=== PATIENT | male | born 1960 ===

== ENCOUNTER 2019-03-01 11:27 | Emergency (ER) | payer BC ==
[2019-03-01] MEDS ORDERED: Albuterol 6.7 GM Inhaler INH ONE (12:18)
--- NOTE | 2019-03-01 12:27 | EDM.PDOC ---
ED HPI GENERAL MEDICAL PROBLEM - General Chief Complaint: Respiratory Problem Stated Complaint: SHORTNESS OF BREATH Time Seen by Provider: 03/01/19 11:46 Source of Information: Reports: Patient History Limitations: Reports: No Limitations - History of Present Illness INITIAL COMMENTS - FREE TEXT/NARRATIVE: Patient is a 58-year-old male who presents ED with a history of shortness of breath for almost 3 years. States he was evaluated by occupational med doctor and had complained of some shortness of breath. PFTs were obtained 01/17/19 indicating moderate restriction ventilatory effort and also superimposed early obstructive pulmonary impairment. FVC of 51%. FEV1 43%. FEV1/FVC of 84%. States he is short of breath with exertion. He is able to walk half-mile before he gets short of breath. In addition he is able to walk up 3 flights of stairs before he gets short of breath. There is no chest pain associated with this. He has no cough noted. No history of any fevers. No orthopnea/PND, increased weight , or increased edema to his lower extremities. He is a borderline diabetic with a history of hypertension. He was on lisinopril/ATC Z 10 mg/12.5 mg but stopped taking approximately 2 months ago since he ran out of a prescription. He does not have a history of COPD, emphysema, or asthma. He has no smoking history as well. There is no history of coronary artery disease and/or hypercholesteremia. Patient denies any recent sick exposures. Denies any chemical exposures. 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 He was informed he should be on a inhaler. - Related Data Allergies Allergy/AdvReac Type Severity Reaction Status Date / Time No Known Allergies Allergy Verified 03/01/19 11:44 Home Meds: Home Meds hydroCHLOROthiazide [Hydrochlorothiazide] 25 mg PO QAM #30 tablet 03/01/19 [Rx] Past Medical History Other HEENT History: ear surgery as a child Cardiovascular History: Reports: Hypertension Social & Family History - Tobacco Use Smoking Status *Q: Never Smoker - Caffeine Use Caffeine Use: Reports: Coffee, Soda, Tea - Recreational Drug Use Recreational Drug Use: No ED ROS GENERAL - Review of Systems Review Of Systems: ROS reveals no pertinent complaints other than HPI. ED EXAM, GENERAL - Physical Exam Exam: See Below Exam Limited By: No Limitations General Appearance: Alert, WD/WN, No Apparent Distress, Other (Able to speak in full sentences with no shortness of breath. ) Eye Exam: Bilateral Eye: Normal Inspection Ears: Hearing Grossly Normal, Hearing Loss (hearing aid to right ear present. ) Nose: Normal Inspection, Normal Mucosa, No Blood Throat/Mouth: Normal Inspection, Normal Oropharynx, Normal Voice, No Airway Compromise Head: Atraumatic, Normocephalic Neck: Normal Inspection, Supple Respiratory/Chest: No Respiratory Distress, Lungs Clear, Normal Breath Sounds, No Accessory Muscle Use, Chest Non-Tender Cardiovascular: Normal Peripheral Pulses, Regular Rate, Rhythm, No Murmur ( obvious) Peripheral Pulses: 2+: Radial (L), Radial (R), Posterior Tibial (L), Posterior Tibial (R) GI/Abdominal: Normal Bowel Sounds, Soft, Non-Tender, No Organomegaly, Distended (obese, no fluid wave) Extremities: Normal Inspection, Pedal Edema (trace edema bilaterally) Neurological: Alert, Oriented, CN II-XII Intact, Normal Cognition, No Motor/ Sensory Deficits Psychiatric: Normal Affect, Normal Mood Skin Exam: Warm, Dry, Intact, Normal Color Course - Vital Signs Last Recorded V/S: Last Vital Signs Temp 98.5 F 03/01/19 11:38 Pulse 84 03/01/19 11:38 Resp 11 L 03/01/19 11:38 BP 164/97 H 03/01/19 11:38 Pulse Ox 95 03/01/19 11:38 - Orders/Labs/Meds Orders: Active Orders 24 hr Category Date Time Status EKG Documentation Completion [RC] STAT Care 03/01/19 12:12 Active RT Post Treatment Assessment [RC] Click to Edit Care 03/01/19 12:18 Active RT Pre-Treatment Assessment [RC] Click to Edit Care 03/01/19 12:18 Active RT Spirometry with Bronchodilator [RESPCARE] Stat Oth 03/01/19 12:11 Active Labs: Laboratory Tests 03/01/19 03/01/19 Range/Units 12:36 12:36 WBC 6.39 (4.23-9.07) K/mm3 RBC 5.78 (4.63-6.08) M/mm3 Hgb 16.0 (13.7-17.5) gm/L Hct 50.4 (40.1-51.0) % MCV 87.2 (79.0-92.2) fl MCH 27.7 (25.7-32.2) pg MCHC 31.7 L (32.2-35.5) g/dl RDW Std Deviation 46.5 H (35.1-43.9) fL Plt Count 247 (163-337) K/mm3 MPV 10.1 (9.4-12.3) fl Neut % (Auto) 57.4 (34.0-67.9) % Lymph % (Auto) 26.3 (21.8-53.1) % [place] % (Auto) 13.0 H (5.3-12.2) % Eos % (Auto) 2.8 (0.8-7.0) Baso % (Auto) 0.3 (0.1-1.2) % Neut # (Auto) 3.67 (1.78-5.38) K/mm3 Lymph # (Auto) 1.68 (1.32-3.57) K/mm3 [place] # (Auto) 0.83 H (0.30-0.82) K/mm3 Eos # (Auto) 0.18 (0.04-0.54) K/mm3 Baso # (Auto) 0.02 (0.01-0.08) K/mm3 Sodium 144 (136-145) mEq/L Potassium 5.5 H (3.5-5.1) mEq/L Chloride 105 (98-107) mEq/L Carbon Dioxide 36 H (21-32) mEq/L Anion Gap 8.5 (5-15) BUN 23 H (7-18) mg/dL Creatinine 1.0 (0.7-1.3) mg/dL Est Cr Clr Drug Dosing 73.44 mL/min Estimated GFR (MDRD) > 60 (>60) mL/min BUN/Creatinine Ratio 23.0 H (14-18) Glucose 98 (74-106) mg/dL Calcium 9.4 (8.5-10.1) mg/dL Total Bilirubin 0.3 (0.2-1.0) mg/dL AST 25 (15-37) U/L ALT 32 (16-63) U/L Alkaline Phosphatase 122 H (46-116) U/L Troponin I 0.020 (0.00-0.056) ng/mL Total Protein 7.7 (6.4-8.2) g/dl Albumin 3.7 (3.4-5.0) g/dl Globulin 4.0 gm/dL Albumin/Globulin Ratio 0.9 L (1-2) Meds: Medications Discontinued Medications Generic Name Dose Route Start Last Admin Trade Name Brian PRN Reason Stop Dose Admin Albuterol 8.5 gm 03/01/19 12:18 03/01/19 12:43 Proventil Hfa INH 03/01/19 12:19 2 puff ONETIME ONE Administration Hydrochlorothiazide 25 mg 03/01/19 13:27 03/01/19 13:40 Hydrochlorothiazide PO 03/01/19 13:28 25 mg ONETIME ONE Administration - Re-Assessments/Exams Free Text/Narrative Re-Assessment/Exam: Patient was evaluated at occupational [facility] one month ago with PFTs indicating FVC of 51%, [id number]%, FEV1/FVC of 84%. Patient has moderate restriction ventilatory effect. Superimposed early obstructive pulmonary impairment. Patient has not made a appointment with a primary care provider as of yet. He has attempted to make an appointment today with no luck. Thus he came to the ED for further evaluation since he has limited days off. I will order a peak flow pre/post bronchodilator to see if this improves his symptoms. Unclear what is causing this restrictive pattern since the patient does not have a history of smoking. I will also obtain a chest x-ray, EKG, and basic labs. 03/01/19 12:[address] Patterson. cardiomegaly with mild increased pulmonary congestion noted. Final interpretation is pending. EKG: SR, DE 152, QTc 445, HR 75, No acute ST changes noted. 03/01/19 13:03 per respiratory therapist patient's pre-peak flow was 235. Post peak flow was 260. Patient admitted to having feeling some improvement with taking a deep breath on the bronchodilator. Return precautions were discussed with the patient. He had no further questions or concerns. Discharge instructions as documented. Departure - Departure Time of Disposition: 12:29 Disposition: Home, Self-Care 01 Condition: Good Clinical Impression: Exertional shortness of breath, Hyperkalemia - Discharge Information Prescriptions: hydroCHLOROthiazide [Hydrochlorothiazide] 25 mg PO QAM #30 tablet Instructions: Shortness of Breath, Adult, [id number], Hyperkalemia Referrals: Megan Navarro PA-C [Physician Fire Sprinkler Inspector] - 03/05/19 10:20 am [facility] [Outside] (Call to make an appt with pulmonologists. ) Forms: ED Department Discharge Additional Instructions: Utilize the albuterol inhaler 1-2 puffs every 4 hours as needed for shortness of breath and cough. Keep track of your peak flows as instructed by respiratory therapy. In addition blood work indicated your potassium was elevated at 5.5. You were on at one point a medication called lisinopril that will cause increase to your potassium levels. The other medication was called hydrochlorothiazide which will decrease your potassium levels. I have opted to stop the lisinopril and increase hydrochlorothiazide to 25 mg every day. Repeat chem 8 will be obtained prior to your appointment with Megan Navarro for March 05 at 1020. Go to the lab at 10:00 AM to have your blood work obtained. You will need to schedule a appointment with a media center specialist in [place]. Please call heart and Lung Clinic at [facility] in [place] to arrange an appt. Please return to the ED at any time you develop any new or worsening symptoms. - My Orders Last 24 Hours: My Active Orders 03/01/19 12:11 RT Spirometry with Bronchodilator [RESPCARE] Stat 03/01/19 12:12 EKG Documentation Completion [RC] STAT 03/01/19 12:18 RT Post Treatment Assessment [RC] Click to Edit RT Pre-Treatment Assessment [RC] Click to Edit - Assessment/Plan Last 24 Hours: My Active Orders 03/01/19 12:11 RT Spirometry with Bronchodilator [RESPCARE] Stat 03/01/19 12:12 EKG Documentation Completion [RC] STAT 03/01/19 12:18 RT Post Treatment Assessment [RC] Click to Edit RT Pre-Treatment Assessment [RC] Click to Edit
--- NOTE | 2019-03-01 12:44 | CR ---
Chest: Portable view of the chest was obtained. Comparison: No previous study. Heart size at the upper limits of normal. Mediastinum is normal. Lungs are clear. Bony structures are grossly intact. Impression: 1. Heart size at the upper limits of normal. Nothing acute is appreciated on portable chest x-ray. Diagnostic code #2
[2019-03-01] MEDS ORDERED: Hydrochlorothiazide 25 MG Tab PO ONE (13:27)
== END 2019-03-01 13:58 | disposition home or self-care (01) ==
LOC: JD.ED 11:27
DX: E87.5 Hyperkalemia (principal); I10 Essential (primary) hypertension
CPT/HCPCS: 36415; 71045; 80053; 84484; 85025; 93005; 99285; A9270; 93010; 99283

== ENCOUNTER 2019-11-11 22:37 | Inpatient (IN) | payer BC, OTHER ==
--- NOTE | 2019-11-11 23:33 | EDM.PDOC ---
ED HPI GENERAL MEDICAL PROBLEM - General Chief Complaint: Respiratory Problem Stated Complaint: POSS STROKE Time Seen by Provider: 11/11/19 23:04 Source of Information: Reports: Patient History Limitations: Reports: No Limitations - History of Present Illness INITIAL COMMENTS - FREE TEXT/NARRATIVE: Mr. Tariq is a very pleasant 59-year-old man with a past medical history significant for untreated hypertension, prediabetes, and morbid obesity, who now presents to the ED stating that he has had progressively worsening dyspnea on exertion over the past 2 weeks. He denies dyspnea at rest or orthopnea. He has had a cough productive of an unknown colored sputum for the past 2 days, along with a sensation of chest congestion. He became lightheaded midday today. No recent fever, chills, chest pain, palpitations, nausea, vomiting, constipation, diarrhea, or urinary symptoms, although he states that his urine was dark today. No recent abdominal pain, bloody bowel movements, black bowel movements, recent weight gain or weight loss, joint aches, headaches, or rashes. The patient's PCP is LISA Gutierres. He last saw her about 2 months ago, and does not have a follow-up appointment. He did not receive an influenza vaccine this season, and declined an offer to receive one here today. - Related Data Allergies Allergy/AdvReac Type Severity Reaction Status Date / Time No Known Allergies Allergy Verified 11/11/19 22:53 Home Meds: Home Meds Budesonide/Formoterol Fumarate [Symbicort 160-4.5 Mcg Inhaler] 6 gm PO BID 11/11 [History] Past Medical History Cardiovascular History: Reports: Hypertension (untreated) Endocrine/Metabolic History: Reports: Obesity/BMI 30+, Other (See Below) ( Prediabetes) - Infectious Disease History Infectious Disease History: Reports: Chicken Pox, Measles, Mumps - Past Surgical History HEENT Surgical History: Reports: Oral Surgery (Cleft palate repair as a child), Other (See Below) (Right mastoid process surgery as a child) Social & Family History - Tobacco Use Smoking Status *Q: Never Smoker - Caffeine Use Caffeine Use: Reports: None - Alcohol Use Alcohol Use History: Yes Alcohol Use Frequency: Socially - Recreational Drug Use Recreational Drug Use: Yes Drug Use in Last 12 Months: No Recreational Drug Type: Reports: Marijuana/Hashish (last smoked early ) - Living Situation & Occupation Living situation: Reports: , Alone 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 ED EXAM, GENERAL - Physical Exam Exam: See Below Exam Limited By: No Limitations General Appearance: Alert, WD/WN, No Apparent Distress Eye Exam: Bilateral Eye: EOMI, Normal Inspection Ears: Normal External Exam, Hearing Grossly Normal Nose: Normal Inspection Throat/Mouth: Normal Inspection, No Airway Compromise, Other (Repaired cleft lip ) Head: Atraumatic, Normocephalic Neck: Normal Inspection, Full Range of Motion Respiratory/Chest: No Respiratory Distress, No Accessory Muscle Use, Decreased Breath Sounds (throughout). No: Crackles, Rhonchi, Wheezing, Stridor, Prolonged Expiration Cardiovascular: Normal Peripheral Pulses, Regular Rate, Rhythm, No Gallop, No JVD, No Murmur, No Rub Peripheral Pulses: 4+: Radial (L), Radial (R) GI/Abdominal: Normal Bowel Sounds, Soft, Non-Tender, No Organomegaly, No Distention, No Abnormal Bruit, No Mass (Male) Exam: Deferred Rectal (Males) Exam: Deferred Back Exam: Normal Inspection, Full Range of Motion, NT Extremities: Normal Range of Motion, Normal Capillary Refill, Other (3+ pitting pretibial edema bilaterally) Neurological: Alert, Oriented, Normal Cognition, No Motor/Sensory Deficits Psychiatric: Normal Affect Skin Exam: Warm, Dry, Intact, Normal Color, No Rash EKG INTERPRETATION EKG Date: 11/11/19 Time: 23:59 Rhythm: NSR Rate (Beats/Min): 94 [place]: RAD-Right [place] Deviation (2 LPFB) P-Wave: Enlarged (? LAE) QRS: Normal (Late transition) ST-T: Normal QT: Normal Comparison: Change From Previous EKG (LPFB new since 03/01/2019) Course - Vital Signs Last Recorded V/S: Last Vital Signs Temp 37.2 C 11/11/19 22:44 Pulse 96 11/12/19 01:41 Resp 16 11/11/19 22:44 BP 168/118 H 11/11/19 22:44 Pulse Ox 93 L 11/12/19 01:41 - Orders/Labs/Meds Orders: Active Orders 24 hr Category Date Time Status EKG Documentation Completion [RC] STAT Care 11/11/19 23:23 Active Ang Chest [CT] Stat Exams 11/12/19 01:00 Taken Chest 2V [CR] Stat Exams 11/11/19 23:23 Taken CULTURE BLOOD [BC] Stat Lab 11/11/19 23:40 Received CULTURE BLOOD [BC] Stat Lab 11/11/19 23:56 Received Blood Culture x2 Reflex Set [OM.PC] Stat Oth 11/11/19 23:23 Ordered Labs: Laboratory Tests 11/11/19 11/11/19 11/11/19 Range/Units 23:40 23:40 23:40 WBC 8.02 (4.23-9.07) K/mm3 RBC 6.22 H (4.63-6.08) M/mm3 Hgb 16.0 (13.7-17.5) gm/dl Hct 54.6 H (40.1-51.0) % MCV 87.8 (79.0-92.2) fl MCH 25.7 (25.7-32.2) pg MCHC 29.3 L (32.2-35.5) g/dl RDW Std Deviation 52.7 H (35.1-43.9) fL Plt Count 224 (163-337) K/mm3 MPV 10.7 (9.4-12.3) fl Neutrophils % (Manual) 62 H (40-60) % Band Neutrophils % 0 (0-10) % Lymphocytes % (Manual) 24 (20-40) % Atypical Lymphs % 0 % Monocytes % (Manual) 12 H (2-10) % Eosinophils % (Manual) 2 (0.8-7.0) % Basophils % (Manual) 0 L (0.2-1.2) Platelet Estimate Adequate Polychromasia 1+ slight Hypochromasia 1+ slight Anisocytosis 1+ slight RBC Morph Comment Not Reportable D-Dimer, Quantitative 6.42 H (0.19-0.50) mg/L Puncture Site ABG pH (7.35-7.45) ABG pCO2 (35.0-45.0) mmHg ABG pO2 (80.0-100.0) mmHg ABG HCO3 (22.0-26.0) meq/L ABG O2 Saturation (96.0-97.0) % ABG Base Excess (-2-2.0) A-a Gradient mmHg O2 Delivery Device Oxygen Flow Rate FiO2 (21.00-100.00) % Sodium 146 H (136-145) mEq/L Potassium 4.2 (3.5-5.1) mEq/L Chloride 106 (98-107) mEq/L Carbon Dioxide 35 H (21-32) mEq/L Anion Gap 9.2 (5-15) BUN 18 (7-18) mg/dL Creatinine 1.2 (0.7-1.3) mg/dL Est Cr Clr Drug Dosing 58.34 mL/min Estimated GFR (MDRD) > 60 (>60) mL/min BUN/Creatinine Ratio 15.0 (14-18) Glucose 103 (80-115) mg/dL Lactic Acid (0.4-2.0) mmol/L Calcium 8.6 (8.5-10.1) mg/dL Total Bilirubin 0.6 (0.2-1.0) mg/dL AST 28 (15-37) U/L ALT 43 (16-63) U/L Alkaline Phosphatase 98 (46-116) U/L Troponin I 0.042 (0.00-0.056) ng/mL NT-Pro-B Natriuret Pep (0-125) pg/mL Total Protein 7.3 (6.4-8.2) g/dl Albumin 3.1 L (3.4-5.0) g/dl Globulin 4.2 gm/dL Albumin/Globulin Ratio 0.7 L (1-2) 11/11/19 11/11/19 11/11/19 Range/Units 23:40 23:40 23:43 WBC (4.23-9.07) K/mm3 RBC (4.63-6.08) M/mm3 Hgb (13.7-17.5) gm/dl Hct (40.1-51.0) % MCV (79.0-92.2) fl MCH (25.7-32.2) pg MCHC (32.2-35.5) g/dl RDW Std Deviation (35.1-43.9) fL Plt Count (163-337) K/mm3 MPV (9.4-12.3) fl Neutrophils % (Manual) (40-60) % Band Neutrophils % (0-10) % Lymphocytes % (Manual) (20-40) % Atypical Lymphs % % Monocytes % (Manual) (2-10) % Eosinophils % (Manual) (0.8-7.0) % Basophils % (Manual) (0.2-1.2) Platelet Estimate Polychromasia Hypochromasia Anisocytosis RBC Morph Comment D-Dimer, Quantitative (0.19-0.50) mg/L Puncture Site Rt radial ABG pH 7.28 L (7.35-7.45) ABG pCO2 76.5 H* (35.0-45.0) mmHg ABG pO2 114.0 H (80.0-100.0) mmHg ABG HCO3 35.1 H (22.0-26.0) meq/L ABG O2 Saturation 97.7 H (96.0-97.0) % ABG Base Excess 5.4 H (-2-2.0) A-a Gradient 19 mmHg O2 Delivery Device Nasal cannula Oxygen Flow Rate 3.0 FiO2 32.00 (21.00-100.00) % Sodium (136-145) mEq/L Potassium (3.5-5.1) mEq/L Chloride (98-107) mEq/L Carbon Dioxide (21-32) mEq/L Anion Gap (5-15) BUN (7-18) mg/dL Creatinine (0.7-1.3) mg/dL Est Cr Clr Drug Dosing mL/min Estimated GFR (MDRD) (>60) mL/min BUN/Creatinine Ratio (14-18) Glucose (80-115) mg/dL Lactic Acid 0.8 (0.4-2.0) mmol/L Calcium (8.5-10.1) mg/dL Total Bilirubin (0.2-1.0) mg/dL AST (15-37) U/L ALT (16-63) U/L Alkaline Phosphatase (46-116) U/L Troponin I (0.00-0.056) ng/mL NT-Pro-B Natriuret Pep 3380 H (0-125) pg/mL Total Protein (6.4-8.2) g/dl Albumin (3.4-5.0) g/dl Globulin gm/dL Albumin/Globulin Ratio (1-2) Meds: Medications Discontinued Medications Generic Name Dose Route Start Last Admin Trade Name Freq PRN Reason Stop Dose Admin Furosemide 40 mg 11/12/19 02:48 Lasix IVPUSH 11/12/19 02:49 NOW ONE - Re-Assessments/Exams Free Text/Narrative Re-Assessment/Exam: 11/11/19 23:25 As above, the patient reports a cough and progressively worsening dyspnea on exertion for the past 2 weeks, with lightheadedness today. No recent fever. He is found to be hypoxemic on room air, although he is not orthopneic. He has distant breath sounds on auscultation. I have ordered a workup that includes blood work, an ABG, 2 sets of blood cultures, a chest x-ray, and an ECG. 11/11/19 23:59 The patient's ABG represents a chronic/compensated respiratory acidosis with excess oxygen. The patient is currently on 3 L of oxygen per nasal cannula. I have asked Hina BALDERRAMA to turn the patient's oxygen down to a saturation of closer to 90%. 11/12/19 00:52 2-view chest radiograph reviewed. There is cardiomegaly. Mild pulmonary vascular congestion. No pleural effusions seen, but fluid is seen in the fissures. No focal infiltrate. No pneumothorax. Formal read per the Radiologist pending. 11/12/19 01:01 The patient's CBC is remarkable for a Hct elevated at 54.6, with a Hgb normal at 16.0. The remainder of his CBC is unremarkable. His CMP is remarkable for a sodium slightly elevated at 146, and a bicarbonate elevated at 35, with the remainder of his CMP being unremarkable. His lactic acid level is within normal limits at 0.8. His troponin is within normal limits at 0.042. His D-dimer is substantially elevated at 6.42. His BNP is elevated at 3380. Based on the patients elevated D-dimer, I have ordered a CT angiogram of the chest to evaluate for PE. Because he appears to be fluid overloaded, I have not ordered additional IV fluid. 11/12/19 02:30 CT angiogram of the chest is read by vRaric as: 1. No central or proximal segmental pulmonary embolus. Please see comment above. (the body of the report reads "The heterogeneous appearance of multiple segmental/subsegmental pulmonary arteries/branches may be due to motion and/or streak artifact. One or more segmental/subsegmental pulmonary emboli cannot be excluded.) 2. Small RIGHT pleural effusion. 3. Possible mild pulmonary edema. 4. 4.3 cm ectasia of the descending thoracic aorta.. 5. Pulmonary arterial hypertension. 6. Cholelithiasis. While not do to a pulmonary embolus, the patient's workup indicates that his dyspnea on exertion is due to pulmonary hypertension and left-sided heart failure, and his hypoxemia is likely due to left-sided CHF. Note that the patient may also have or be developing right-sided heart failure secondary to his pulmonary hypertension. Going forward, the patient would benefit from an echocardiogram +/-right heart catheterization. At a minimum, the patient requires supplemental oxygen. While not diagnostic for COPD, there was no evidence of COPD on the patient's CT scan. This indicates that his respiratory acidosis is NOT oxygen related. Pulmonary hypertension is improved in the setting of higher oxygen tension, therefore I will have the patient's nurse increase his supplemental oxygen. The patient's elevated D-dimer is not due to a pulmonary embolus - the elevation may be due to CHF or an undiagnosed cancer or liver disease, however, it could also be due to a DVT in one or both of his lower extremities. Bilateral lower extremity Doppler ultrasounds are therefore indicated. I am recommending that we place the patient into observation. He could undergo the bilateral lower extremity Dopplers and an echocardiogram in the morning, and have home supplemental oxygen arranged for. In the meantime, since the patient does have some evidence of CHF, including an elevated BNP, mild pulmonary edema and a small pleural effusion, the patient could be diuresed during his stay. 11/12/19 02:47 The above plan was discussed with the patient, who agreed. I have ordered Lasix 40 mg IVP. Departure - Departure Time of Disposition: 02:47 Disposition: Refer to Observation Condition: Good Clinical Impression: Pulmonary hypertension, Hypoxemia, CHF (congestive heart failure), Elevated d- dimer - Discharge Information *PRESCRIPTION DRUG MONITORING PROGRAM REVIEWED*: Not Applicable *COPY OF PRESCRIPTION DRUG MONITORING REPORT IN PATIENT OG: Not Applicable Referrals: Megan Navarro PA-C [Primary Care Provider] - Forms: ED Department Discharge Sepsis Event Note - Evaluation Sepsis Screening Result: No Definite Risk - Focused Exam Vital Signs: Vital Signs Temp Pulse Resp BP Pulse Ox 11/12/19 01:41 96 93 L 11/11/19 23:05 95 11/11/19 22:44 37.2 C 95 16 168/118 H 82 L Date Exam was Performed: 11/12/19 Time Exam was Performed: 03:18 - My Orders Last 24 Hours: My Active Orders 11/11/19 23:23 EKG Documentation Completion [RC] STAT Chest 2V [CR] Stat Blood Culture x2 Reflex Set [OM.PC] Stat 11/11/19 23:40 CULTURE BLOOD [BC] Stat 11/11/19 23:56 CULTURE BLOOD [BC] Stat 11/12/19 01:00 Ang Chest [CT] Stat - Assessment/Plan Last 24 Hours: My Active Orders 11/11/19 23:23 EKG Documentation Completion [RC] STAT Chest 2V [CR] Stat Blood Culture x2 Reflex Set [OM.PC] Stat 11/11/19 23:40 CULTURE BLOOD [BC] Stat 11/11/19 23:56 CULTURE BLOOD [BC] Stat 11/12/19 01:00 Ang Chest [CT] Stat
[2019-11-12] MEDS ORDERED: Succinylcholine 200 MG/10 ML MDV ONE
[2019-11-12] MEDS ORDERED: Midazolam 1 MG/ML 5 ML SDV ONE
[2019-11-12] MEDS ORDERED: Furosemide 40 MG/4 ML VIAL IVPUSH ONE ×3 (02:48→18:00)
--- NOTE | 2019-11-12 08:02 | CR ---
Chest: Two views of the chest were obtained. Comparison: Prior chest x-ray of 03/01/19. Heart is enlarged. Mild areas of atelectasis are noted within both lung bases. Pulmonary vessels are felt to be slightly congested. Bony structures appear within normal limits for the patient's age. Impression: 1. Findings suspicious for mild CHF. 2. Minimal atelectasis. Diagnostic code #3 This report was dictated in [place] Standard Time
--- NOTE | 2019-11-12 08:02 | CT ---
CT chest Technique: Multiple axial sections through the chest were obtained. Intravenous contrast was utilized. Study has been performed as a pulmonary angiogram protocol. Comparison: Visualized upper abdominal structures show evidence of a minimal amount of fluid around the spleen. Three large calcified gallstones are seen within the gallbladder. Body wall edema is identified within the abdomen. Small right-sided pleural effusion is noted. Heart is enlarged. Pulmonary arteries show no filling defects to indicate pulmonary embolism. Ascending aorta is mildly aneurysmal with AP dimension of 4.3 cm. Mediastinum and hilar region show no adenopathy. Mild areas of atelectasis are noted within both lung bases. Impression: 1. Cardiomegaly and small right-sided pleural effusion. These correlate if patient has mild CHF. 2. Mild areas of atelectasis within both lung bases. 3. Gallstones and a small amount of ascites around the spleen. Body wall edema also noted. 4. No findings of pulmonary embolism. 5. Other findings as noted above. Diagnostic code #3 This report was dictated in [place] Standard Time I agree with preliminary report from [facility], finalized on 11/12/19, 3:27 AM Central Time
--- NOTE | 2019-11-12 08:55 | US ---
Bilateral lower extremity deep venous ultrasound: Duplex and color Doppler evaluation was obtained of the right and left common femoral, proximal greater saphenous, superficial femoral, popliteal and posterior tibial veins. Findings: Normal phasic flow, augmentation and compression are seen. Impression: 1. No evidence of deep venous thrombosis within the right or left lower extremities. Diagnostic code #1 Study was dictated in [place] Standard Time
[2019-11-12] MEDS ORDERED: Acetaminophen 325 MG Tab PO PRN (09:16)
--- NOTE | 2019-11-12 09:22 | PCM.HP.2 ---
H&P History of Present Illness - General Date of Service: 11/12/19 Admit Problem/Dx: Admission Diagnosis/Problem Admission Diagnosis/Problem Pulmonary hypertension - History of Present Illness Initial Comments - Free Text/Narative: Prateek is a 59-year-old male who is a poor historian and difficult to understand secondary to speech impediment presented to the emergency room with worsening shortness of breath. He has a history for untreated hypertension, prediabetes, and morbid obesity. He states for the last few months he has had worsening dyspnea on exertion that significantly worsened over the last few days. Yesterday he became lightheaded and decided to come to the emergency room. He denies any fever, chills, night sweats. He has had a cough that is productive of unknown colored sputum for the last couple of days. No abdominal pain, hematochezia or melena, dysuria or hesitancy. Patient did have PFTs done March 2019 which showed moderate obstructive ventilatory defect. There was no significant improvement in FVC and FEV1 postbronchodilator. Flow volume loop suggests obstructive ventilatory defect. Lung volumes are normal. The diffusion capacity is normal. Patient states he smoked approximately 1-1/2 years back in the 80s. - Related Data Allergies/Adverse Reactions: Allergies Allergy/AdvReac Type Severity Reaction Status Date / Time No Known Allergies Allergy Verified 11/12/19 07:44 Home Medications: Home Meds Budesonide/Formoterol Fumarate [Symbicort 160-4.5 Mcg Inhaler] 6 gm PO BID 11/11 [History] Past Medical History HEENT History: Reports: Other (See Below) Other HEENT History: wears glasses for driving he states. Wears hearing aide in right ear. Cardiovascular History: Reports: Hypertension, Other (See Below) Other Cardiovascular History: enlarged heart. Respiratory History: Reports: Other (See Below) Other Respiratory History: He takes an inhaler but is unsure of specific lung problem. States he recently got the inhaler from Megan Navarro. Gastrointestinal History: Reports: GERD Neurological History: Reports: Concussion, Speech Problems, Other (See Below) Other Neuro History: concussion one year ago after slipping on ice and hitting head on concrete. Hx of cleft lip and palate, it is difficult to understand pt' s speech. Endocrine/Metabolic History: Reports: Obesity/BMI 30+, Other (See Below) - Infectious Disease History Infectious Disease History: Reports: Chicken Pox, Measles, Mumps - Past Surgical History HEENT Surgical History: Reports: Oral Surgery, Other (See Below) Other HEENT Surgeries/Procedures: Surgery for cleft lip/palate. Surgery to right ear can't remember what it was called. Cardiovascular Surgical History: Reports: None Respiratory Surgical History: Reports: None GI Surgical History: Reports: None Endocrine Surgical History: Reports: None Neurological Surgical History: Reports: None Social & Family History - Family History Family Medical History: Noncontributory - Tobacco Use Smoking Status *Q: Never Smoker Second Hand Smoke Exposure: No - Caffeine Use Caffeine Use: Reports: Soda - Recreational Drug Use Recreational Drug Use: No Drug Use in Last 12 Months: No Recreational Drug Type: Reports: Marijuana/Hashish (last smoked early ) - Living Situation & Occupation Living situation: Reports: , Alone 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 Exam - Exam Exam: See Below - Vital Signs Vital Signs: Last Vital Signs Temp 98.4 F 11/12/19 05:37 Pulse 90 11/12/19 05:37 Resp 24 H 11/12/19 05:37 BP 143/93 H 11/12/19 05:38 Pulse Ox 96 11/12/19 06:01 Weight: 273 lb 3.2 oz - Exam Quality Assessment: Supplemental Oxygen General: Alert, Oriented, 4 HEENT: Conjunctiva Clear, EOMI, Mucosa Moist & [place], Pupils Reactive, Other ( Cleft lip) Neck: Supple, Trachea Midline, 2 Lungs: Decreased Breath Sounds (Diffusely), Crackles (Scattered). No: Normal Respiratory Effort (Increased rate and effort) Cardiovascular: Regular Rate, Regular Rhythm GI/Abdominal Exam: Normal Bowel Sounds, Soft, Non-Tender, No Distention Back Exam: Normal Inspection Extremities: Normal Range of Motion, Normal Capillary Refill, Pedal Edema (2+ pitting edema knee-high) Peripheral Pulses: 2+: Posterior Tibial (L), Posterior Tibial (R), Dorsalis Pedis (L), Dorsalis Pedis (R) Skin: Warm, Dry, Intact Neurological: Cranial Nerves Intact Neuro Extensive - Mental Status: Alert, Oriented x3, Normal Mood/Affect, Normal Cognition Psychiatric: Alert, Normal Affect, Normal Mood - Patient Data Lab Results Last 24 hrs: Laboratory Results - last 24 hr 11/11/19 11/11/19 11/11/19 Range/Units 23:40 23:40 23:40 WBC 8.02 (4.23-9.07) K/mm3 RBC 6.22 H (4.63-6.08) M/mm3 Hgb 16.0 (13.7-17.5) gm/dl Hct 54.6 H (40.1-51.0) % MCV 87.8 (79.0-92.2) fl MCH 25.7 (25.7-32.2) pg MCHC 29.3 L (32.2-35.5) g/dl RDW Std Deviation 52.7 H (35.1-43.9) fL Plt Count 224 (163-337) K/mm3 MPV 10.7 (9.4-12.3) fl Neutrophils % (Manual) 62 H (40-60) % Band Neutrophils % 0 (0-10) % Lymphocytes % (Manual) 24 (20-40) % Atypical Lymphs % 0 % Monocytes % (Manual) 12 H (2-10) % Eosinophils % (Manual) 2 (0.8-7.0) % Basophils % (Manual) 0 L (0.2-1.2) Platelet Estimate Adequate Polychromasia 1+ slight Hypochromasia 1+ slight Anisocytosis 1+ slight RBC Morph Comment Not Reportable D-Dimer, Quantitative 6.42 H (0.19-0.50) mg/L Puncture Site ABG pH (7.35-7.45) ABG pCO2 (35.0-45.0) mmHg ABG pO2 (80.0-100.0) mmHg ABG HCO3 (22.0-26.0) meq/L ABG O2 Saturation (96.0-97.0) % ABG Base Excess (-2-2.0) A-a Gradient mmHg O2 Delivery Device Oxygen Flow Rate FiO2 (21.00-100.00) % Sodium 146 H (136-145) mEq/L Potassium 4.2 (3.5-5.1) mEq/L Chloride 106 (98-107) mEq/L Carbon Dioxide 35 H (21-32) mEq/L Anion Gap 9.2 (5-15) BUN 18 (7-18) mg/dL Creatinine 1.2 (0.7-1.3) mg/dL Est Cr Clr Drug Dosing 58.34 mL/min Estimated GFR (MDRD) > 60 (>60) mL/min BUN/Creatinine Ratio 15.0 (14-18) Glucose 103 (80-115) mg/dL Lactic Acid (0.4-2.0) mmol/L Calcium 8.6 (8.5-10.1) mg/dL Total Bilirubin 0.6 (0.2-1.0) mg/dL AST 28 (15-37) U/L ALT 43 (16-63) U/L Alkaline Phosphatase 98 (46-116) U/L Troponin I 0.042 (0.00-0.056) ng/mL NT-Pro-B Natriuret Pep (0-125) pg/mL Total Protein 7.3 (6.4-8.2) g/dl Albumin 3.1 L (3.4-5.0) g/dl Globulin 4.2 gm/dL Albumin/Globulin Ratio 0.7 L (1-2) 11/11/19 11/11/19 11/11/19 Range/Units 23:40 23:40 23:43 WBC (4.23-9.07) K/mm3 RBC (4.63-6.08) M/mm3 Hgb (13.7-17.5) gm/dl Hct (40.1-51.0) % MCV (79.0-92.2) fl MCH (25.7-32.2) pg MCHC (32.2-35.5) g/dl RDW Std Deviation (35.1-43.9) fL Plt Count (163-337) K/mm3 MPV (9.4-12.3) fl Neutrophils % (Manual) (40-60) % Band Neutrophils % (0-10) % Lymphocytes % (Manual) (20-40) % Atypical Lymphs % % Monocytes % (Manual) (2-10) % Eosinophils % (Manual) (0.8-7.0) % Basophils % (Manual) (0.2-1.2) Platelet Estimate Polychromasia Hypochromasia Anisocytosis RBC Morph Comment D-Dimer, Quantitative (0.19-0.50) mg/L Puncture Site Rt radial ABG pH 7.28 L (7.35-7.45) ABG pCO2 76.5 H* (35.0-45.0) mmHg ABG pO2 114.0 H (80.0-100.0) mmHg ABG HCO3 35.1 H (22.0-26.0) meq/L ABG O2 Saturation 97.7 H (96.0-97.0) % ABG Base Excess 5.4 H (-2-2.0) A-a Gradient 19 mmHg O2 Delivery Device Nasal cannula Oxygen Flow Rate 3.0 FiO2 32.00 (21.00-100.00) % Sodium (136-145) mEq/L Potassium (3.5-5.1) mEq/L Chloride (98-107) mEq/L Carbon Dioxide (21-32) mEq/L Anion Gap (5-15) BUN (7-18) mg/dL Creatinine (0.7-1.3) mg/dL Est Cr Clr Drug Dosing mL/min Estimated GFR (MDRD) (>60) mL/min BUN/Creatinine Ratio (14-18) Glucose (80-115) mg/dL Lactic Acid 0.8 (0.4-2.0) mmol/L Calcium (8.5-10.1) mg/dL Total Bilirubin (0.2-1.0) mg/dL AST (15-37) U/L ALT (16-63) U/L Alkaline Phosphatase (46-116) U/L Troponin I (0.00-0.056) ng/mL NT-Pro-B Natriuret Pep 3380 H (0-125) pg/mL Total Protein (6.4-8.2) g/dl Albumin (3.4-5.0) g/dl Globulin gm/dL Albumin/Globulin Ratio (1-2) Result Diagrams: 11/11/19 23:40 11/11/19 23:40 Imaging Impressions Last 24 hrs: CT chest Impression: 1. Cardiomegaly and small right-sided pleural effusion. These correlate if patient has mild CHF. 2. Mild areas of atelectasis within both lung bases. 3. Gallstones and a small amount of ascites around the spleen. Body wall edema also noted. 4. No findings of pulmonary embolism. 5. Other findings as noted above. Mild areas of atelectasis are noted within both lung bases. EKG INTERPRETATION EKG Date: 11/11/19 Rhythm: NSR Rate (Beats/Min): 94 [place]: RAD-Right [place] Deviation P-Wave: Enlarged (Possible left atrial enlargement) QRS: Normal (Poor R wave progression) Sepsis Event Note - Evaluation Sepsis Screening Result: No Definite Risk - Focused Exam Vital Signs: Vital Signs Temp Temp Pulse Pulse Resp BP BP 11/12/19 06:01 11/12/19 05:38 143/93 H 11/12/19 05:37 98.4 F 90 24 H 153/95 H 11/12/19 01:41 96 11/11/19 23:05 11/11/19 22:44 98.9 F 95 16 168/118 H Pulse Ox Pulse Ox 11/12/19 06:01 96 11/12/19 05:38 11/12/19 05:37 96 11/12/19 01:41 93 L 11/11/19 23:05 95 11/11/19 22:44 82 L Date Exam was Performed: 11/12/19 Time Exam was Performed: 15:47 Problem List Initiated/Reviewed/Updated: Yes Orders Last 24hrs: Active Orders 24 hr Category Date Time Status Patient Status [ADT] Routine ADT 11/12/19 09:17 Ordered Bedrest Bathroom Privileges [RC] ASDIRECTED Care 11/12/19 06:00 Active Oxygen Therapy Adult [Oxygen Therapy] [RC] Q8H Care 11/12/19 06:01 Active Oxygen Therapy [RC] PRN Care 11/12/19 09:17 Ordered RT Incentive Spirometry [RC] ASDIRECTED Care 11/12/19 09:20 Ordered VTE/DVT Education [RC] PER UNIT ROUTINE Care 11/12/19 09:17 Ordered Vital Signs [RC] Q4H Care 11/12/19 09:17 Ordered Heart Healthy Diet [DIET] Diet 11/12/19 Lunch Ordered Regular Diet [DIET] Diet 11/12/19 Breakfast Active Echo Comp wo Cont [US] Timed Exams 11/12/19 08:00 Ordered ABG [BLOOD GAS ARTERIAL] [BG] Urgent Lab 11/12/19 09:13 Ordered CBC WITH AUTO DIFF [HEME] AM Lab 11/13/19 05:11 Ordered CBC WITH AUTO DIFF [HEME] AM Lab 11/14/19 05:11 Ordered CBC WITH AUTO DIFF [HEME] AM Lab 11/15/19 05:11 Ordered COMPREHENSIVE METABOLIC PN,CMP [CHEM] AM Lab 11/13/19 05:11 Ordered COMPREHENSIVE METABOLIC PN,CMP [CHEM] AM Lab 11/14/19 05:11 Ordered COMPREHENSIVE METABOLIC PN,CMP [CHEM] AM Lab 11/15/19 05:11 Ordered COMPREHENSIVE METABOLIC PN,CMP [CHEM] AM Lab 11/16/19 05:11 Ordered COMPREHENSIVE METABOLIC PN,CMP [CHEM] AM Lab 11/17/19 05:11 Ordered CULTURE BLOOD [BC] Stat Lab 11/11/19 23:40 Received CULTURE BLOOD [BC] Stat Lab 11/11/19 23:56 Received MAGNESIUM [CHEM] AM Lab 11/13/19 05:11 Ordered MAGNESIUM [CHEM] AM Lab 11/14/19 05:11 Ordered MAGNESIUM [CHEM] AM Lab 11/15/19 05:11 Ordered MAGNESIUM [CHEM] AM Lab 11/16/19 05:11 Ordered MAGNESIUM [CHEM] AM Lab 11/17/19 05:11 Ordered Acetaminophen [Tylenol] Med 11/12/19 09:16 Ordered 650 mg PO Q4H PRN Budesonide/Formoterol Fumarate Med 11/12/19 21:00 Ordered 6 gm PO BID Enoxaparin [Lovenox] Med 11/13/19 09:00 Ordered 40 mg SUBCUT DAILY Furosemide [Lasix] Med 11/12/19 09:13 Once 40 mg IVPUSH NOW ONE Blood Culture x2 Reflex Set [OM.PC] Stat Oth 11/11/19 23:23 Ordered Resuscitation Status Routine Resus Stat 11/12/19 05:59 Ordered Medication Orders Acetaminophen (Tylenol) 650 mg PO Q4H PRN PRN Reason: Pain (Mild 1-3)/fever Furosemide (Lasix) 40 mg IVPUSH NOW ONE Stop: 11/12/19 09:14 Non-Formulary Medication (Budesonide/Formoterol Fumarate) 6 gm PO BID [facility] Assessment/Plan Comment:: Assessment * New onset CHF * BNP 3380 * Echocardiogram ordered by ED * CT consistent with CHF, cardiomegaly, small right sided pleural effusion, small amount of ascites around the spleen, body wall edema. * Lasix 40 mg IV given in the emergency room and this morning * Possible pulmonary hypertension. Likely has sleep apnea and is obese * COPD exacerbation * Spirometry from March 2019 distant with moderate obstructive airway disease without reversibility * Initial blood gas demonstrating respiratory acidosis PCO2 76.5 and repeat at 88.3. * History of productive cough * On Symbicort at home. * Chronic respiratory acidosis with appropriate metabolic compensation * Patient is coherent even with such a high PCO2 * HCO3 increase by 3-4 for every 10 the PaCO2 increases * Untreated hypertension * Not on blood pressure medication * Prediabetes * Positive d-dimer with negative Plan * Admit to medical floor on telemetry * BiPAP * Decrease FiO2 to keep SPO2 between 90 and 94%. * Lasix 40 mg IV twice daily * DuoNeb 4 times daily * Albuterol nebulizer every 2 hours as needed * Solu-Medrol 40 mg every 6 hours * Rocephin 1 g every 24 hours for COPD exacerbation * Follow I's and O's strictly * Daily weights * Echocardiogram pending * CBC, CMP, mag, hemoglobin A1c, TSH in the morning * Follow ABGs * VTE prophylaxis with Lovenox * CODE STATUS full code * Anticipated length of stay 3 to 4 days. - Mortality Measure Prognosis:: Poor
[2019-11-12] MEDS ORDERED: Succinylcholine 200 MG/10 ML MDV IV ONE ×2 (11:56→23:42)
[2019-11-12] MEDS ORDERED: cefTRIAXone 1 GM in Sodium Chloride 0.9% 100 ML IV SCH (16:00)
[2019-11-12] MEDS: methylPREDNISolone Sodium Succinate 40 MG/1 ML SDV IVPUSH SCH ×2 (16:19→22:09)
[2019-11-12] MEDS: Albuterol/Ipratropium 3.0-0.5 MG/3 ML Neb Soln NEB SCH ×2 (16:57→20:35)
[2019-11-12] MEDS: Insulin Lispro 100 Units/ML 3 ML Vial SUBCUT SCH ×2 (17:30→22:08)
[2019-11-12] MEDS: Formoterol/Mometasone 200-5 MCG 8.8 GM Inhaler IH SCH (20:35)
[2019-11-12] MEDS ORDERED: Lidocaine 2% 100 MG/5 ML Syringe ONE (23:35)
[2019-11-12] MEDS ORDERED: propofoL 100 ML ONE (23:35)
[2019-11-12] MEDS ORDERED: Etomidate 2 MG/ML 20 ML SDV IVPUSH ONE ×2 (23:41)
[2019-11-12] MEDS ORDERED: Lidocaine 2% 100 MG/5 ML Syringe IVPUSH ONE (23:45)
[2019-11-13] MEDS: propofoL 100 ML IV SCH (00:02)
[2019-11-13] MEDS ORDERED: Midazolam 1 MG/ML 2 ML SDV IVPUSH ONE (00:30)
[2019-11-13] MEDS ORDERED: Piperacillin/Tazobactam 4.5 GM in Sodium Chloride 0.9% 100 ML IV ONE (00:39)
--- NOTE | 2019-11-13 00:41 | PCM.SN ---
- Free Text/Narrative Note: 11/13/2019 0004 Was called to assist in intubation in ICU. [id number] Jo with ambu. Sats 91%. Suctioned bloody secretions from oral airway first. Intubated with MAC 3 with stylet 8.0 ETT. 22 cm at the lips. Secured. Bilateral breath sounds - more on the right. Positive ETCO2 with color change. Xray confirmed ETT. Sats up to 98% after. Also assisted with 18 g NG tube placement- left nare to [address] Sutherland and Dr. Jo present.
[2019-11-13] MEDS ORDERED: fentaNYL 2,500 MCG in Sodium Chloride 0.9% 200 ML IV SCH (00:45)
--- NOTE | 2019-11-13 00:50 | PCM.SN ---
- Free Text/Narrative Note: Patient had repeat ABGs done at 2240 hrs. pH decreased to 7.28 with an increase in his PCO2 of 99.3. Patient was still alert and was able to consent to intubation for worsening hypercapnia. Dr. Jo attempted intubation, but because of body habitus had difficulty and Leann Sequeira CRNA successfully intubated Prateek. Initial chest x-ray showed ET tube placement and NG tube placement. There was increased left-sided atelectasis that is significantly worse than yesterday. Because of the difficulty with intubation there is some concern for aspiration. Patient will be started on Zosyn. Initial ventilator settings: Tidal volume 450, respiratory rate 17, FiO2 50%, PEEP 10, I:E ratio 1: 3. Initial sedation was propofol, but patient was poorly sedated and switched to Versed and fentanyl. ABG after intubation: pH 7.46, PCO2 60.1, PO2 52, HCO3 42.0 on 50% FiO2. FiO2 will be increased to 60%. Continue other settings as previous.
[2019-11-13] MEDS: Midazolam 50 MG in Sodium Chloride 0.9% 40 ML IV SCH ×5 (01:25→21:37)
[2019-11-13] MEDS: fentaNYL 2,500 MCG in Sodium Chloride 0.9% 200 ML IV SCH ×2 (01:30→19:13)
[2019-11-13] MEDS ORDERED: Furosemide 40 MG/4 ML VIAL IVPUSH ONE (01:31)
[2019-11-13] MEDS: Pantoprazole 40 MG Vial IVPUSH SCH ×3 (02:33→20:35)
[2019-11-13] MEDS: Enoxaparin 40 MG/0.4 ML Syringe SUBCUT SCH ×2 (02:41→14:43)
[2019-11-13] MEDS: methylPREDNISolone Sodium Succinate 40 MG/1 ML SDV IVPUSH SCH ×4 (03:02→22:22)
[2019-11-13] MEDS ORDERED: Furosemide 40 MG/4 ML VIAL IVPUSH SCH (06:00)
[2019-11-13] MEDS: Insulin Lispro 100 Units/ML 3 ML Vial SUBCUT SCH ×4 (06:38→23:14)
[2019-11-13] MEDS ORDERED: Magnesium Sulfate/Water 2 GM in Premix Bag 1 BAG IV ONE (08:09)
[2019-11-13] MEDS ORDERED: Piperacillin/Tazobactam 4.5 GM AdvVial ONE (08:32)
[2019-11-13] MEDS: Piperacillin/Tazobactam 4.5 GM in Sodium Chloride 0.9% 100 ML IV SCH ×2 (08:40→17:09)
[2019-11-13] MEDS: Potassium Chloride 10 MEQ in Premix Bag 1 BAG IV SCH ×4 (08:44→12:10)
[2019-11-13] MEDS: Albuterol/Ipratropium 3.0-0.5 MG/3 ML Neb Soln NEB SCH ×3 (09:28→21:00)
--- NOTE | 2019-11-13 09:56 | CR ---
Chest: Portable supine view of the chest was obtained. Comparison: Prior chest x-ray performed earlier on the same day (12:21 AM) Heart is enlarged. Continuing atelectasis within the right lung base. Lesser atelectasis is seen within the left base. Pulmonary vessels are slightly increased. Heart is enlarged. Nasogastric tube is seen with tip coursing off the inferior edge of the film into the stomach. Endotracheal tube is seen with tip lying at the level of the lower clavicles. Impression: 1. Areas of atelectasis as noted above. 2. Stable cardiomegaly. Slight increased pulmonary vessels which are also stable. 3. Satisfactory position of endotracheal tube and nasogastric tube. Diagnostic code #3 Agree with preliminary report issued by [facility] ([facility] preliminary report dictated on 11/13/19, 3:39 AM Central Time) Study was dictated in [place] Standard Time
--- NOTE | 2019-11-13 09:56 | CR ---
Chest: Portable supine view of the chest was obtained. Comparison: Prior chest x-ray of 11/12/19. Minimal atelectasis within the left lung base is seen. Heart is enlarged. Pulmonary vessels remain slightly increased. Endotracheal tube is seen. Tip lies at the level of the clavicles in satisfactory position. Nasogastric tube is seen with tip lying within the stomach. Impression: 1. Endotracheal tube and nasogastric tube. This is an interval change from prior exam. 2. Other portions of the chest are fairly stable as described above. Diagnostic code #3 Agree with preliminary report issued by [facility] ([facility] preliminary report dictated on 11/13/19, 2:11 AM Central Time) Study was dictated in [place] Standard Time
[2019-11-13] MEDS ORDERED: Enoxaparin 40 MG/0.4 ML Syringe SUBCUT SCH (10:00)
[2019-11-13] MEDS: Formoterol/Mometasone 200-5 MCG 8.8 GM Inhaler IH SCH (10:22)
[2019-11-13] MEDS: Sodium Chloride 0.9% 1,000 ML IV SCH (11:00)
[2019-11-13] MEDS: Furosemide 40 MG/4 ML VIAL IVPUSH SCH ×2 (13:44→20:23)
--- NOTE | 2019-11-13 14:51 | PCM.PN ---
- General Info Date of Service: 11/13/19 Admission Dx/Problem (Free Text): Admission Diagnosis/Problem Admission Diagnosis/Problem Pulmonary hypertension Subjective Update: Intubated, sedated, - Patient Data Vitals - Most Recent: Last Vital Signs Temp 97.7 F 11/13/19 11:00 Pulse 81 11/13/19 13:00 Resp 15 11/13/19 13:00 BP 115/84 11/13/19 13:00 Pulse Ox 92 L 11/13/19 13:58 Weight - Most Recent: 261 lb 12.8 oz I&O - Last 24 Hours: Intake & Output 11/12/19 11/13/19 11/13/19 22:59 06:59 14:59 Intake Total 1600 213 550 Output Total 5550 2100 850 Balance -3320 -6725 -300 Lab Results Last 24 Hours: Laboratory Results - last 24 hr 11/12/19 11/12/19 11/12/19 Range/Units 14:30 17:01 17:12 WBC (4.23-9.07) K/mm3 RBC (4.63-6.08) M/mm3 Hgb (13.7-17.5) gm/dl Hct (40.1-51.0) % MCV (79.0-92.2) fl MCH (25.7-32.2) pg MCHC (32.2-35.5) g/dl RDW Std Deviation (35.1-43.9) fL Plt Count (163-337) K/mm3 MPV (9.4-12.3) fl Neut % (Auto) (34.0-67.9) % Lymph % (Auto) (21.8-53.1) % [place] % (Auto) (5.3-12.2) % Eos % (Auto) (0.8-7.0) Baso % (Auto) (0.1-1.2) % Neut # (Auto) (1.78-5.38) K/mm3 Lymph # (Auto) (1.32-3.57) K/mm3 [place] # (Auto) (0.30-0.82) K/mm3 Eos # (Auto) (0.04-0.54) K/mm3 Baso # (Auto) (0.01-0.08) K/mm3 Neutrophils % (Manual) (40-60) % Band Neutrophils % (0-10) % Lymphocytes % (Manual) (20-40) % Atypical Lymphs % % Monocytes % (Manual) (2-10) % Eosinophils % (Manual) (0.8-7.0) % Basophils % (Manual) (0.2-1.2) Manual Slide Review Platelet Estimate Hypochromasia Basophilic Stippling Anisocytosis RBC Morph Comment Puncture Site Rt radial Lt radial ABG pH 7.34 L 7.34 L (7.35-7.45) ABG pCO2 83.7 H* 79.0 H* (35.0-45.0) mmHg ABG pO2 62.0 L 65.0 L (80.0-100.0) mmHg ABG HCO3 44.0 H 41.2 H (22.0-26.0) meq/L ABG O2 Saturation 90.3 L 90.5 L (96.0-97.0) % ABG Base Excess 13.0 H 11.1 H (-2-2.0) Chin Test Positive Positive A-a Gradient mmHg O2 Delivery Device Bipap Bipap FiO2 0.00 L 0.00 L (21.00-100.00) % Tidal Volume cc PEEP 5.0 5.0 cmH20 Pressure Support 11.0 14.0 cmH2O Sodium (136-145) mEq/L Potassium (3.5-5.1) mEq/L Chloride (98-107) mEq/L Carbon Dioxide (21-32) mEq/L Anion Gap (5-15) BUN (7-18) mg/dL Creatinine (0.7-1.3) mg/dL Est Cr Clr Drug Dosing mL/min Estimated GFR (MDRD) (>60) mL/min BUN/Creatinine Ratio (14-18) Glucose (80-115) mg/dL POC Glucose 94 (80-115) mg/dL Hemoglobin A1c (4.50-6.20) % Calcium (8.5-10.1) mg/dL Phosphorus (2.6-4.7) mg/dL Magnesium (1.8-2.4) mg/dl Total Bilirubin (0.2-1.0) mg/dL AST (15-37) U/L ALT (16-63) U/L Alkaline Phosphatase (46-116) U/L Total Protein (6.4-8.2) g/dl Albumin (3.4-5.0) g/dl Globulin gm/dL Albumin/Globulin Ratio (1-2) TSH 3rd Generation (0.358-3.74) uIU/mL 11/12/19 11/12/19 11/12/19 Range/Units 22:08 22:47 23:48 WBC 8.31 (4.23-9.07) K/mm3 RBC 6.64 H (4.63-6.08) M/mm3 Hgb 17.4 (13.7-17.5) gm/dl Hct 57.0 H (40.1-51.0) % MCV 85.8 (79.0-92.2) fl MCH 26.2 (25.7-32.2) pg MCHC 30.5 L (32.2-35.5) g/dl RDW Std Deviation 53.1 H (35.1-43.9) fL Plt Count 221 (163-337) K/mm3 MPV 10.6 (9.4-12.3) fl Neut % (Auto) (34.0-67.9) % Lymph % (Auto) (21.8-53.1) % [place] % (Auto) (5.3-12.2) % Eos % (Auto) (0.8-7.0) Baso % (Auto) (0.1-1.2) % Neut # (Auto) (1.78-5.38) K/mm3 Lymph # (Auto) (1.32-3.57) K/mm3 [place] # (Auto) (0.30-0.82) K/mm3 Eos # (Auto) (0.04-0.54) K/mm3 Baso # (Auto) (0.01-0.08) K/mm3 Neutrophils % (Manual) 96 H (40-60) % Band Neutrophils % 0 (0-10) % Lymphocytes % (Manual) 3 L (20-40) % Atypical Lymphs % 0 % Monocytes % (Manual) 1 L (2-10) % Eosinophils % (Manual) 0 L (0.8-7.0) % Basophils % (Manual) 0 L (0.2-1.2) Manual Slide Review Platelet Estimate Adequate Hypochromasia 1+ slight Basophilic Stippling 1+ slight Anisocytosis 1+ slight RBC Morph Comment Not Reportable Puncture Site Lt radial ABG pH 7.28 L (7.35-7.45) ABG pCO2 99.3 H* (35.0-45.0) mmHg ABG pO2 79.0 L (80.0-100.0) mmHg ABG HCO3 45.4 H (22.0-26.0) meq/L ABG O2 Saturation 93.8 L (96.0-97.0) % ABG Base Excess 12.6 H (-2-2.0) Chin Test A-a Gradient 83 mmHg O2 Delivery Device Bipap FiO2 40.00 (21.00-100.00) % Tidal Volume cc PEEP cmH20 Pressure Support cmH2O Sodium (136-145) mEq/L Potassium (3.5-5.1) mEq/L Chloride (98-107) mEq/L Carbon Dioxide (21-32) mEq/L Anion Gap (5-15) BUN (7-18) mg/dL Creatinine (0.7-1.3) mg/dL Est Cr Clr Drug Dosing mL/min Estimated GFR (MDRD) (>60) mL/min BUN/Creatinine Ratio (14-18) Glucose (80-115) mg/dL POC Glucose 149 H (80-115) mg/dL Hemoglobin A1c (4.50-6.20) % Calcium (8.5-10.1) mg/dL Phosphorus (2.6-4.7) mg/dL Magnesium (1.8-2.4) mg/dl Total Bilirubin (0.2-1.0) mg/dL AST (15-37) U/L ALT (16-63) U/L Alkaline Phosphatase (46-116) U/L Total Protein (6.4-8.2) g/dl Albumin (3.4-5.0) g/dl Globulin gm/dL Albumin/Globulin Ratio (1-2) TSH 3rd Generation (0.358-3.74) uIU/mL 11/13/19 11/13/19 11/13/19 Range/Units 01:02 02:00 05:20 WBC 8.67 (4.23-9.07) K/mm3 RBC 6.49 H (4.63-6.08) M/mm3 Hgb 16.9 (13.7-17.5) gm/dl Hct 55.1 H (40.1-51.0) % MCV 84.9 (79.0-92.2) fl MCH 26.0 (25.7-32.2) pg MCHC 30.7 L (32.2-35.5) g/dl RDW Std Deviation 50.4 H (35.1-43.9) fL Plt Count 211 (163-337) K/mm3 MPV 11.0 (9.4-12.3) fl Neut % (Auto) 93.1 H (34.0-67.9) % Lymph % (Auto) 4.0 L (21.8-53.1) % [place] % (Auto) 2.9 L (5.3-12.2) % Eos % (Auto) 0 L (0.8-7.0) Baso % (Auto) 0.0 L (0.1-1.2) % Neut # (Auto) 8.07 H (1.78-5.38) K/mm3 Lymph # (Auto) 0.35 L (1.32-3.57) K/mm3 [place] # (Auto) 0.25 L (0.30-0.82) K/mm3 Eos # (Auto) 0.00 L (0.04-0.54) K/mm3 Baso # (Auto) 0.00 L (0.01-0.08) K/mm3 Neutrophils % (Manual) (40-60) % Band Neutrophils % (0-10) % Lymphocytes % (Manual) (20-40) % Atypical Lymphs % % Monocytes % (Manual) (2-10) % Eosinophils % (Manual) (0.8-7.0) % Basophils % (Manual) (0.2-1.2) Manual Slide Review Abnormal smear Platelet Estimate Hypochromasia Basophilic Stippling Anisocytosis RBC Morph Comment Puncture Site Rt femoral ABG pH 7.46 H (7.35-7.45) ABG pCO2 60.1 H (35.0-45.0) mmHg ABG pO2 52.0 L (80.0-100.0) mmHg ABG HCO3 42.0 H (22.0-26.0) meq/L ABG O2 Saturation 86.3 L (96.0-97.0) % ABG Base Excess 14.5 H (-2-2.0) Chin Test A-a Gradient 230 mmHg O2 Delivery Device Ventilator FiO2 50.00 (21.00-100.00) % Tidal Volume 450.0 cc PEEP 10.0 cmH20 Pressure Support cmH2O Sodium 145 (136-145) mEq/L Potassium 4.0 (3.5-5.1) mEq/L Chloride 101 (98-107) mEq/L Carbon Dioxide 41 H* (21-32) mEq/L Anion Gap 7.0 (5-15) BUN 18 (7-18) mg/dL Creatinine 1.3 (0.7-1.3) mg/dL Est Cr Clr Drug Dosing 53.85 mL/min Estimated GFR (MDRD) 56 (>60) mL/min BUN/Creatinine Ratio 13.8 L (14-18) Glucose 163 H (80-115) mg/dL POC Glucose (80-115) mg/dL Hemoglobin A1c (4.50-6.20) % Calcium 8.7 (8.5-10.1) mg/dL Phosphorus 5.1 H (2.6-4.7) mg/dL Magnesium 1.9 (1.8-2.4) mg/dl Total Bilirubin 1.2 H (0.2-1.0) mg/dL AST 28 (15-37) U/L ALT 41 (16-63) U/L Alkaline Phosphatase 100 (46-116) U/L Total Protein 7.5 (6.4-8.2) g/dl Albumin 3.0 L (3.4-5.0) g/dl Globulin 4.5 gm/dL Albumin/Globulin Ratio 0.7 L (1-2) TSH 3rd Generation (0.358-3.74) uIU/mL 11/13/19 11/13/19 11/13/19 Range/Units 05:20 05:20 05:40 WBC (4.23-9.07) K/mm3 RBC (4.63-6.08) M/mm3 Hgb (13.7-17.5) gm/dl Hct (40.1-51.0) % MCV (79.0-92.2) fl MCH (25.7-32.2) pg MCHC (32.2-35.5) g/dl RDW Std Deviation (35.1-43.9) fL Plt Count (163-337) K/mm3 MPV (9.4-12.3) fl Neut % (Auto) (34.0-67.9) % Lymph % (Auto) (21.8-53.1) % [place] % (Auto) (5.3-12.2) % Eos % (Auto) (0.8-7.0) Baso % (Auto) (0.1-1.2) % Neut # (Auto) (1.78-5.38) K/mm3 Lymph # (Auto) (1.32-3.57) K/mm3 [place] # (Auto) (0.30-0.82) K/mm3 Eos # (Auto) (0.04-0.54) K/mm3 Baso # (Auto) (0.01-0.08) K/mm3 Neutrophils % (Manual) (40-60) % Band Neutrophils % (0-10) % Lymphocytes % (Manual) (20-40) % Atypical Lymphs % % Monocytes % (Manual) (2-10) % Eosinophils % (Manual) (0.8-7.0) % Basophils % (Manual) (0.2-1.2) Manual Slide Review Platelet Estimate Hypochromasia Basophilic Stippling Anisocytosis RBC Morph Comment Puncture Site ABG pH (7.35-7.45) ABG pCO2 (35.0-45.0) mmHg ABG pO2 (80.0-100.0) mmHg ABG HCO3 (22.0-26.0) meq/L ABG O2 Saturation (96.0-97.0) % ABG Base Excess (-2-2.0) Chin Test A-a Gradient mmHg O2 Delivery Device FiO2 (21.00-100.00) % Tidal Volume cc PEEP cmH20 Pressure Support cmH2O Sodium 142 (136-145) mEq/L Potassium 3.3 L (3.5-5.1) mEq/L Chloride 98 (98-107) mEq/L Carbon Dioxide 40 H (21-32) mEq/L Anion Gap 7.3 (5-15) BUN 19 H (7-18) mg/dL Creatinine 1.3 (0.7-1.3) mg/dL Est Cr Clr Drug Dosing 53.85 mL/min Estimated GFR (MDRD) 56 (>60) mL/min BUN/Creatinine Ratio 14.6 (14-18) Glucose 139 H (80-115) mg/dL POC Glucose 131 H (80-115) mg/dL Hemoglobin A1c 6.00 (4.50-6.20) % Calcium 9.0 (8.5-10.1) mg/dL Phosphorus (2.6-4.7) mg/dL Magnesium 1.7 L (1.8-2.4) mg/dl Total Bilirubin 1.7 H (0.2-1.0) mg/dL AST 32 (15-37) U/L ALT 40 (16-63) U/L Alkaline Phosphatase 96 (46-116) U/L Total Protein 7.6 (6.4-8.2) g/dl Albumin 3.0 L (3.4-5.0) g/dl Globulin 4.6 gm/dL Albumin/Globulin Ratio 0.7 L (1-2) TSH 3rd Generation 0.818 (0.358-3.74) uIU/mL 11/13/19 11/13/19 11/13/19 Range/Units 08:00 11:14 12:47 WBC (4.23-9.07) K/mm3 RBC (4.63-6.08) M/mm3 Hgb (13.7-17.5) gm/dl Hct (40.1-51.0) % MCV (79.0-92.2) fl MCH (25.7-32.2) pg MCHC (32.2-35.5) g/dl RDW Std Deviation (35.1-43.9) fL Plt Count (163-337) K/mm3 MPV (9.4-12.3) fl Neut % (Auto) (34.0-67.9) % Lymph % (Auto) (21.8-53.1) % [place] % (Auto) (5.3-12.2) % Eos % (Auto) (0.8-7.0) Baso % (Auto) (0.1-1.2) % Neut # (Auto) (1.78-5.38) K/mm3 Lymph # (Auto) (1.32-3.57) K/mm3 [place] # (Auto) (0.30-0.82) K/mm3 Eos # (Auto) (0.04-0.54) K/mm3 Baso # (Auto) (0.01-0.08) K/mm3 Neutrophils % (Manual) (40-60) % Band Neutrophils % (0-10) % Lymphocytes % (Manual) (20-40) % Atypical Lymphs % % Monocytes % (Manual) (2-10) % Eosinophils % (Manual) (0.8-7.0) % Basophils % (Manual) (0.2-1.2) Manual Slide Review Platelet Estimate Hypochromasia Basophilic Stippling Anisocytosis RBC Morph Comment Puncture Site Lt radial Rt radial ABG pH 7.56 H 7.50 H (7.35-7.45) ABG pCO2 49.0 H 55.7 H (35.0-45.0) mmHg ABG pO2 54.0 L 62.0 L (80.0-100.0) mmHg ABG HCO3 44.3 H 43.5 H (22.0-26.0) meq/L ABG O2 Saturation 90.5 L 92.8 L (96.0-97.0) % ABG Base Excess 18.1 H 16.5 H (-2-2.0) Chin Test A-a Gradient 386 369 mmHg O2 Delivery Device Ventilator Ventilator FiO2 70.00 70.00 (21.00-100.00) % Tidal Volume 450.0 450.0 cc PEEP 13.0 13.0 cmH20 Pressure Support cmH2O Sodium (136-145) mEq/L Potassium (3.5-5.1) mEq/L Chloride (98-107) mEq/L Carbon Dioxide (21-32) mEq/L Anion Gap (5-15) BUN (7-18) mg/dL Creatinine (0.7-1.3) mg/dL Est Cr Clr Drug Dosing mL/min Estimated GFR (MDRD) (>60) mL/min BUN/Creatinine Ratio (14-18) Glucose (80-115) mg/dL POC Glucose 125 H (80-115) mg/dL Hemoglobin A1c (4.50-6.20) % Calcium (8.5-10.1) mg/dL Phosphorus (2.6-4.7) mg/dL Magnesium (1.8-2.4) mg/dl Total Bilirubin (0.2-1.0) mg/dL AST (15-37) U/L ALT (16-63) U/L Alkaline Phosphatase (46-116) U/L Total Protein (6.4-8.2) g/dl Albumin (3.4-5.0) g/dl Globulin gm/dL Albumin/Globulin Ratio (1-2) TSH 3rd Generation (0.358-3.74) uIU/mL 11/13/19 Range/Units 13:26 WBC (4.23-9.07) K/mm3 RBC (4.63-6.08) M/mm3 Hgb (13.7-17.5) gm/dl Hct (40.1-51.0) % MCV (79.0-92.2) fl MCH (25.7-32.2) pg MCHC (32.2-35.5) g/dl RDW Std Deviation (35.1-43.9) fL Plt Count (163-337) K/mm3 MPV (9.4-12.3) fl Neut % (Auto) (34.0-67.9) % Lymph % (Auto) (21.8-53.1) % [place] % (Auto) (5.3-12.2) % Eos % (Auto) (0.8-7.0) Baso % (Auto) (0.1-1.2) % Neut # (Auto) (1.78-5.38) K/mm3 Lymph # (Auto) (1.32-3.57) K/mm3 [place] # (Auto) (0.30-0.82) K/mm3 Eos # (Auto) (0.04-0.54) K/mm3 Baso # (Auto) (0.01-0.08) K/mm3 Neutrophils % (Manual) (40-60) % Band Neutrophils % (0-10) % Lymphocytes % (Manual) (20-40) % Atypical Lymphs % % Monocytes % (Manual) (2-10) % Eosinophils % (Manual) (0.8-7.0) % Basophils % (Manual) (0.2-1.2) Manual Slide Review Platelet Estimate Hypochromasia Basophilic Stippling Anisocytosis RBC Morph Comment Puncture Site Rt radial ABG pH 7.45 (7.35-7.45) ABG pCO2 63.0 H (35.0-45.0) mmHg ABG pO2 76.0 L (80.0-100.0) mmHg ABG HCO3 43.5 H (22.0-26.0) meq/L ABG O2 Saturation 95.0 L (96.0-97.0) % ABG Base Excess 15.5 H (-2-2.0) Chin Test A-a Gradient 346 mmHg O2 Delivery Device Ventilator FiO2 70.00 (21.00-100.00) % Tidal Volume 400.0 cc PEEP 13.0 cmH20 Pressure Support cmH2O Sodium (136-145) mEq/L Potassium (3.5-5.1) mEq/L Chloride (98-107) mEq/L Carbon Dioxide (21-32) mEq/L Anion Gap (5-15) BUN (7-18) mg/dL Creatinine (0.7-1.3) mg/dL Est Cr Clr Drug Dosing mL/min Estimated GFR (MDRD) (>60) mL/min BUN/Creatinine Ratio (14-18) Glucose (80-115) mg/dL POC Glucose (80-115) mg/dL Hemoglobin A1c (4.50-6.20) % Calcium (8.5-10.1) mg/dL Phosphorus (2.6-4.7) mg/dL Magnesium (1.8-2.4) mg/dl Total Bilirubin (0.2-1.0) mg/dL AST (15-37) U/L ALT (16-63) U/L Alkaline Phosphatase (46-116) U/L Total Protein (6.4-8.2) g/dl Albumin (3.4-5.0) g/dl Globulin gm/dL Albumin/Globulin Ratio (1-2) TSH 3rd Generation (0.358-3.74) uIU/mL Darryl Results Last 24 Hours: Microbiology 11/11/19 23:56 Aerobic Blood Culture - Preliminary Blood - Venous - Lab Draw NO GROWTH AFTER 1 DAY Anaerobic Blood Culture - Preliminary NO GROWTH AFTER 1 DAY 11/11/19 23:40 Aerobic Blood Culture - Preliminary Blood - Venous NO GROWTH AFTER 1 DAY Anaerobic Blood Culture - Preliminary NO GROWTH AFTER 1 DAY Med Orders - Current: Current Medications Acetaminophen (Tylenol) 650 mg PO Q4H PRN PRN Reason: Pain (Mild 1-3)/fever Albuterol (Proventil Neb Soln) 2.5 mg NEB Q2H PRN PRN Reason: Dyspnea Albuterol/Ipratropium (Duoneb 3.0-0.5 Mg/3 Ml) 3 ml NEB QIDRT [facility] Last Admin: 11/13/19 09:28 Dose: 3 ml Enoxaparin Sodium (Lovenox) 40 mg SUBCUT Q12H [facility] Last Admin: 11/13/19 02:41 Dose: 40 mg Furosemide (Lasix) 60 mg IVPUSH Q8H [facility] Last Admin: 11/13/19 13:44 Dose: 60 mg Propofol (Diprivan 100 Ml) 100 mls @ 3.718 mls/hr IV TITRATE [facility]; Protocol Last Titration: 11/13/19 01:36 Dose: 0 mcg/kg/min, 0 mls/hr Piperacillin Sod/Tazobactam (Sod 4.5 gm/ Sodium Chloride) 100 mls @ 25 mls/hr IV Q8H [facility] Last Admin: 11/13/19 08:40 Dose: 25 mls/hr Midazolam HCl 50 mg/ Sodium (Chloride) 50 mls @ 4 mls/hr IV TITRATE [facility]; Protocol Last Admin: 11/13/19 10:40 Dose: 10 mg/hr, 10 mls/hr Fentanyl 2,500 mcg/ Sodium (Chloride) 250 mls @ 5 mls/hr IV TITRATE [facility]; Protocol Last Titration: 11/13/19 01:59 Dose: 140 mcg/hr, 14 mls/hr Insulin Human Lispro (Humalog) 0 unit SUBCUT QIDACANDBED [facility]; Protocol Last Admin: 11/13/19 12:30 Dose: Not Given Methylprednisolone Sodium Succinate (Solu-Medrol) 40 mg IVPUSH Q6H [facility] Last Admin: 11/13/19 09:55 Dose: 40 mg Mometasone Furoate/Formoterol Fumar (Dulera 200-5 Mcg) 2 puff IH BID [facility] Last Admin: 11/13/19 10:22 Dose: Not Given Pantoprazole Sodium (Protonix Iv) 40 mg IVPUSH BID [facility] Last Admin: 11/13/19 08:39 Dose: 40 mg Discontinued Medications Albuterol/Ipratropium (Duoneb 3.0-0.5 Mg/3 Ml) 3 ml NEB QID [facility] Last Admin: 11/12/19 20:35 Dose: 3 ml Enoxaparin Sodium (Lovenox) 40 mg SUBCUT DAILY [facility] Etomidate (Amidate) 38 mg IVPUSH ONETIME ONE Stop: 11/12/19 23:42 Last Admin: 11/12/19 23:46 Dose: 38 mg Etomidate (Amidate) 40 mg IVPUSH .STK-MED ONE Stop: 11/12/19 00:01 Furosemide (Lasix) 40 mg IVPUSH NOW ONE Stop: 11/12/19 02:49 Last Admin: 11/12/19 03:49 Dose: 40 mg Furosemide (Lasix) 40 mg IVPUSH NOW ONE Stop: 11/12/19 10:01 Last Admin: 11/12/19 11:31 Dose: 40 mg Furosemide (Lasix) 40 mg IVPUSH ONETIME ONE Stop: 11/12/19 18:01 Last Admin: 11/12/19 17:31 Dose: 40 mg Furosemide (Lasix) 40 mg IVPUSH BIDDIURETIC [facility] Last Admin: 11/13/19 05:40 Dose: 40 mg Furosemide (Lasix) 60 mg IVPUSH NOW ONE Stop: 11/13/19 01:32 Last Admin: 11/13/19 01:35 Dose: 60 mg Ceftriaxone Sodium 1 gm/ (Sodium Chloride) 100 mls @ 200 mls/hr IV Q24H [facility] Last Admin: 11/12/19 16:24 Dose: 200 mls/hr Propofol (Diprivan 100 Ml) Confirm Administered Dose 100 mls @ as directed .ROUTE .STK-MED ONE Stop: 11/12/19 23:36 Last Admin: 11/13/19 00:51 Dose: Not Given Piperacillin Sod/Tazobactam (Sod 4.5 gm/ Sodium Chloride) 100 mls @ 200 mls/hr IV ONETIME ONE Stop: 11/13/19 01:08 Last Admin: 11/13/19 01:29 Dose: 200 mls/hr Fentanyl 2,500 mcg/ Sodium (Chloride) 250 mls @ 61.96 mls/hr IV TITRATE [facility]; Protocol Potassium Chloride 10 meq/ (Premix) 100 mls @ 100 mls/hr IV Q1H [facility] Stop: 11/13/19 12:14 Last Admin: 11/13/19 12:10 Dose: 100 mls/hr Magnesium Sulfate 2 gm/ Premix 50 mls @ 25 mls/hr IV ONETIME ONE Stop: 11/13/19 10:08 Last Admin: 11/13/19 08:38 Dose: 25 mls/hr Lidocaine HCl (Xylocaine 2%) Confirm Administered Dose 100 mg .ROUTE .STK-MED ONE Stop: 11/12/19 23:36 Last Admin: 11/13/19 00:51 Dose: Not Given Lidocaine HCl (Xylocaine 2%) 100 mg IVPUSH ONETIME ONE Stop: 11/12/19 23:46 Last Admin: 11/12/19 23:46 Dose: 100 mg Midazolam HCl (Versed 1 Mg/Ml) 5 mg IVPUSH ONETIME ONE Stop: 11/13/19 00:31 Last Admin: 11/13/19 00:30 Dose: 5 mg Midazolam HCl (Versed 1 Mg/Ml) 5 mg .ROUTE .STK-MED ONE Stop: 11/12/19 00:01 Piperacillin Sod/Tazobactam Sod (Piperacil-Tazobact) Confirm Administered Dose 4.5 gm .ROUTE .STK-MED ONE Stop: 11/13/19 08:33 Last Admin: 11/13/19 08:49 Dose: Not Given Succinylcholine Chloride (Quelicin) 187 mg IV ONETIME ONE Stop: 11/12/19 23:43 Last Admin: 11/12/19 23:41 Dose: 187 mg Succinylcholine Chloride (Quelicin) 187 mg IV ONETIME ONE Stop: 11/12/19 11:57 Last Admin: 11/12/19 23:56 Dose: 187 mg Succinylcholine Chloride (Quelicin) 400 mg .ROUTE .STK-MED ONE Stop: 11/12/19 00:01 - Exam Quality Assessment: Supplemental Oxygen (Intubated), Urine Catheter General: Sedated HEENT: Pupils Equal Neck: Supple Lungs: Decreased Breath Sounds (left lung field. improved from last night.). No : Normal Respiratory Effort (ventilator) Cardiovascular: Regular Rate, Regular Rhythm GI/Abdominal Exam: Normal Bowel Sounds, Soft, Distended (Mild, improved from last night.) Extremities: Normal Capillary Refill, Pedal Edema (1-2+) Skin: Warm Sepsis Event Note - Evaluation Sepsis Screening Result: No Definite Risk - Focused Exam Vital Signs: Vital Signs Temp Pulse Resp BP BP Pulse Ox Pulse Ox 11/13/19 13:58 92 L 11/13/19 13:00 81 15 115/84 93 L 11/13/19 12:00 74 15 99/71 93 L 11/13/19 11:20 92 L 11/13/19 11:00 97.7 F 76 15 93/63 92 L 11/13/19 10:00 97.9 F 17 96/68 91 L 11/13/19 09:30 92 L 11/13/19 08:09 92 L 11/13/19 07:30 18 114/75 91 L 11/13/19 07:00 18 126/77 126/77 91 L 11/13/19 06:05 80 19 90 L 11/13/19 06:00 18 127/78 11/13/19 05:00 18 122/84 91 L 11/13/19 04:09 76 18 93 L 11/13/19 04:00 96.9 F 18 119/75 92 L 11/13/19 03:01 91 L 11/13/19 03:00 18 120/76 94 L Date Exam was Performed: 11/13/19 Time Exam was Performed: 14:58 - Problem List Review Problem List Initiated/Reviewed/Updated: Yes - My Orders Last 24 Hours: My Active Orders 11/12/19 14:19 RT Aerosol Therapy [RC] ASDIRECTED 11/12/19 14:20 Albuterol [Proventil Neb Soln] 2.5 mg NEB Q2H PRN 11/12/19 15:46 Blood Glucose Check, Bedside [RC] Q6HR 11/12/19 16:00 methylPREDNISolone Sod Succ [Solu-MEDROL] 40 mg IVPUSH Q6H 11/12/19 17:00 Insulin Lispro [HumaLOG] See Protocol SUBCUT QIDACANDBED 11/12/19 21:00 Mometasone/Formoterol [Dulera 200-5 MCG] 2 puff IH BID 11/12/19 23:45 propofoL [Diprivan 100 ML] 100 ml IV TITRATE 11/12/19 23:46 RASS Sedation Scale [RC] Q4HR Desired Level of Sedation (RASS) [AST] Click To Edit 11/13/19 00:45 Midazolam [Versed 5 MG/ML] 50 mg Sodium Chloride 0.9% [Normal Saline] 40 ml IV TITRATE 11/13/19 01:39 Urinary Catheter Assessment [RC] Q4HR 11/13/19 01:40 Gastrointestinal Tube Mgmt [RC] Q4HR NG [Nasogastric Orogastric Tube Insertion] [OM.PC] Routine 11/13/19 01:45 Insert Bansal Catheter [Insert Urinary Catheter] [OM.PC] Q24H 11/13/19 02:15 Pantoprazole [ProTONIX IV] 40 mg IVPUSH BID 11/13/19 03:00 Enoxaparin [Lovenox] 40 mg SUBCUT Q12H 11/13/19 09:00 Piperacillin/Tazobactam [Piperacil-Tazobact] 4.5 gm Sodium Chloride 0.9% [ Normal Saline] 100 ml IV Q8H 11/13/19 10:00 Albuterol/Ipratropium [DuoNeb 3.0-0.5 MG/3 ML] 3 ml NEB QIDRT 11/13/19 11:20 Ventilator Assessment [RT Ventilator, Adult] [RC] ASDIRECTED 11/13/19 13:00 Furosemide [Lasix] 60 mg IVPUSH Q8H 11/13/19 Dinner Nothing Per Oral Diet [DIET] 11/14/19 05:11 CBC WITH AUTO DIFF [HEME] AM COMPREHENSIVE METABOLIC PN,CMP [CHEM] AM MAGNESIUM [CHEM] AM 11/15/19 05:11 CBC WITH AUTO DIFF [HEME] AM COMPREHENSIVE METABOLIC PN,CMP [CHEM] AM MAGNESIUM [CHEM] AM 11/16/19 05:11 COMPREHENSIVE METABOLIC PN,CMP [CHEM] AM MAGNESIUM [CHEM] AM 11/17/19 05:11 COMPREHENSIVE METABOLIC PN,CMP [CHEM] AM MAGNESIUM [CHEM] AM - Assessment Assessment:: Mean arterial pressure 73-96 T-max 98.4 6000 mL negative fluid balance Ventilator settings: Assist control - volume controlled Tidal volume 400 (6ml/kg PBW) Respiratory rate 15 PEEP 13 FiO2 70% I:E ratio 1:3 Drips: Versed and fentanyl titrate for RASS of -3 Echocardiogram: 1. Left regular ejection fraction, by visual estimation, is 60 to 65%. 2. "D-shaped" septum and abnormal septal bounce consistent with RV pressure overload. 3. Mildly reduced right ventricular systolic function. 4. Right ventricular size is severely enlarged. 5. No aortic valve stenosis. 6. Mild aortic valve regurgitation. 7. Trace mitral valve regurgitation. 8. Mild tricuspid valve regurgitation. 9. Mild dilatation of the ascending aorta. Ascending 4.5 cm. 10. The right ventricular systolic pressure is severely elevated at 64.0 mmHg. 11. No regional wall motion abnormalities. - Plan Plan:: Assessment * Respiratory failure * Intubated overnight secondary to worsening PCO2 and PaO2 * RASS -3 * NPO * NGT * New onset CHF: Heart failure with preserved ejection fraction * BNP 3380 in the emergency room * Left ventricular ejection fraction 60 to 65% * Right ventricular systolic pressure severely elevated at 64.0 mmHg. * CT consistent with CHF, cardiomegaly, small right sided pleural effusion, small amount of ascites around the spleen, body wall edema. * Lasix 40 mg IV given in the emergency room and this morning * Possible pulmonary hypertension. Likely has sleep apnea and is obese * COPD exacerbation * Spirometry from March 2019 distant with moderate obstructive airway disease without reversibility * Initial blood gas demonstrating respiratory acidosis PCO2 76.5 and repeat at 88.3. * History of productive cough * On Symbicort at home. * Chronic respiratory acidosis with appropriate metabolic compensation * Arterial blood gas: pH 7.45, PCO2 63.0, PO2 76.0, HCO3 43.5, O2 saturation 95 %: On above ventilator settings * Untreated hypertension * Not on blood pressure medication * Prediabetes * Positive d-dimer with negative Plan * Admit to ICU * Continue mechanical ventilation and sedation vacation in the morning * Lasix 60 mg IV every 8 hours * Cautious diuresis secondary to right-sided heart failure * DuoNeb 4 times daily * Albuterol nebulizer every 2 hours as needed * Solu-Medrol 40 mg every 6 hours * Switch to Zosyn for antibiotics secondary to difficult intubation and concern for aspiration * Follow I's and O's strictly * Daily weights * NPO * CBC, CMP, mag, hemoglobin A1c, TSH in the morning * Follow ABGs * VTE prophylaxis with Lovenox * CODE STATUS full code
[2019-11-13] MEDS ORDERED: Metoprolol Tartrate 5 MG/5 ML SDV IVPUSH ONE (15:54)
[2019-11-13] MEDS ORDERED: Lactated Ringers 1,000 ML IV SCH (19:45)
[2019-11-13] MEDS ORDERED: Lactated Ringers 500 ML IV ONE (20:19)
[2019-11-14] MEDS: Piperacillin/Tazobactam 4.5 GM in Sodium Chloride 0.9% 100 ML IV SCH ×3 (00:55→16:08)
[2019-11-14] MEDS: Enoxaparin 40 MG/0.4 ML Syringe SUBCUT SCH ×2 (03:14→15:22)
[2019-11-14] MEDS: methylPREDNISolone Sodium Succinate 40 MG/1 ML SDV IVPUSH SCH ×3 (03:15→15:21)
[2019-11-14] MEDS: Midazolam 50 MG in Sodium Chloride 0.9% 40 ML IV SCH ×4 (03:16→23:31)
[2019-11-14] MEDS: Albuterol/Ipratropium 3.0-0.5 MG/3 ML Neb Soln NEB SCH ×4 (05:40→20:21)
[2019-11-14] MEDS: Furosemide 40 MG/4 ML VIAL IVPUSH SCH ×3 (06:35→20:50)
[2019-11-14] MEDS: Sodium Chloride 0.9% 1,000 ML IV SCH ×2 (06:36→17:13)
[2019-11-14] MEDS: Insulin Lispro 100 Units/ML 3 ML Vial SUBCUT SCH ×4 (06:41→22:16)
--- NOTE | 2019-11-14 07:07 | CR ---
Chest: Portable view of the chest was obtained. Comparison: Prior chest x-ray of 11/13/19. Tip of endotracheal tube lies at the lower level of the clavicles. Nasogastric tube is noted with tip being within the stomach. Areas of basilar atelectasis remain fairly stable. Upper lungs are clear. Bony structures are grossly intact. Impression: 1. Stable tubes. 2. Persisting bibasilar atelectasis. 3. No change from previous study is seen. Diagnostic code #3 This report was dictated in [place] Standard Time
[2019-11-14] MEDS: Pantoprazole 40 MG Vial IVPUSH SCH ×2 (09:16→20:49)
--- NOTE | 2019-11-14 11:50 | PCM.PN ---
- General Info Date of Service: 11/14/19 Admission Dx/Problem (Free Text): Admission Diagnosis/Problem Admission Diagnosis/Problem Pulmonary hypertension Subjective Update: Patient continues to be mechanically ventilated and sedated. Patient developed decreased urinary output yesterday. IV fluids were started secondary to slight increase in creatinine and decrease in GFR. Patient also developed bradycardia overnight which resolved with lowering of PEEP. Currently undergoing sedation vacation. - Patient Data Vitals - Most Recent: Last Vital Signs Temp 97.8 F 11/14/19 08:00 Pulse 56 L 11/14/19 10:33 Resp 15 11/14/19 10:33 BP 106/67 11/14/19 10:33 Pulse Ox 95 11/14/19 11:22 Weight - Most Recent: 260 lb 4.8 oz I&O - Last 24 Hours: Intake & Output 11/13/19 11/14/19 11/14/19 22:59 06:59 14:59 Intake Total 295 2315 100 Output Total 285 310 210 Balance 10 2004 - Imaging Impressions - Last 24 Hours: Chest x-ray 11/14/2019: 1. Stable tubes. 2. Persisting bibasilar atelectasis. 3. No change from previous study is seen. Lab Results Last 24 Hours: Laboratory Results - last 24 hr 11/13/19 11/13/19 11/13/19 Range/Units 12:47 13:26 17:45 WBC (4.23-9.07) K/mm3 RBC (4.63-6.08) M/mm3 Hgb (13.7-17.5) gm/dl Hct (40.1-51.0) % MCV (79.0-92.2) fl MCH (25.7-32.2) pg MCHC (32.2-35.5) g/dl RDW Std Deviation (35.1-43.9) fL Plt Count (163-337) K/mm3 MPV (9.4-12.3) fl Neut % (Auto) (34.0-67.9) % Lymph % (Auto) (21.8-53.1) % Hoke % (Auto) (5.3-12.2) % Eos % (Auto) (0.8-7.0) Baso % (Auto) (0.1-1.2) % Neut # (Auto) (1.78-5.38) K/mm3 Lymph # (Auto) (1.32-3.57) K/mm3 Hoke # (Auto) (0.30-0.82) K/mm3 Eos # (Auto) (0.04-0.54) K/mm3 Baso # (Auto) (0.01-0.08) K/mm3 Manual Slide Review Puncture Site Rt radial ABG pH 7.45 (7.35-7.45) ABG pCO2 63.0 H (35.0-45.0) mmHg ABG pO2 76.0 L (80.0-100.0) mmHg ABG HCO3 43.5 H (22.0-26.0) meq/L ABG O2 Saturation 95.0 L (96.0-97.0) % ABG Base Excess 15.5 H (-2-2.0) Chin Test A-a Gradient 346 mmHg O2 Delivery Device Ventilator FiO2 70.00 (21.00-100.00) % Tidal Volume 400.0 cc PEEP 13.0 cmH20 Pressure Support cmH2O Sodium 144 (136-145) mEq/L Potassium 3.6 (3.5-5.1) mEq/L Chloride 100 (98-107) mEq/L Carbon Dioxide 40 H (21-32) mEq/L Anion Gap 7.6 (5-15) BUN 24 H (7-18) mg/dL Creatinine 1.5 H (0.7-1.3) mg/dL Est Cr Clr Drug Dosing 46.67 mL/min Estimated GFR (MDRD) 48 (>60) mL/min BUN/Creatinine Ratio 16.0 (14-18) Glucose 151 H (80-115) mg/dL POC Glucose 125 H (80-115) mg/dL Calcium 8.8 (8.5-10.1) mg/dL Phosphorus (2.6-4.7) mg/dL Magnesium (1.8-2.4) mg/dl Total Bilirubin (0.2-1.0) mg/dL AST (15-37) U/L ALT (16-63) U/L Alkaline Phosphatase (46-116) U/L Troponin I (0.00-0.056) ng/mL Total Protein (6.4-8.2) g/dl Albumin (3.4-5.0) g/dl Globulin gm/dL Albumin/Globulin Ratio (1-2) 11/13/19 11/13/19 11/14/19 Range/Units 17:52 22:28 00:48 WBC (4.23-9.07) K/mm3 RBC (4.63-6.08) M/mm3 Hgb (13.7-17.5) gm/dl Hct (40.1-51.0) % MCV (79.0-92.2) fl MCH (25.7-32.2) pg MCHC (32.2-35.5) g/dl RDW Std Deviation (35.1-43.9) fL Plt Count (163-337) K/mm3 MPV (9.4-12.3) fl Neut % (Auto) (34.0-67.9) % Lymph % (Auto) (21.8-53.1) % Hoke % (Auto) (5.3-12.2) % Eos % (Auto) (0.8-7.0) Baso % (Auto) (0.1-1.2) % Neut # (Auto) (1.78-5.38) K/mm3 Lymph # (Auto) (1.32-3.57) K/mm3 Hoke # (Auto) (0.30-0.82) K/mm3 Eos # (Auto) (0.04-0.54) K/mm3 Baso # (Auto) (0.01-0.08) K/mm3 Manual Slide Review Puncture Site ABG pH (7.35-7.45) ABG pCO2 (35.0-45.0) mmHg ABG pO2 (80.0-100.0) mmHg ABG HCO3 (22.0-26.0) meq/L ABG O2 Saturation (96.0-97.0) % ABG Base Excess (-2-2.0) Chin Test A-a Gradient mmHg O2 Delivery Device FiO2 (21.00-100.00) % Tidal Volume cc PEEP cmH20 Pressure Support cmH2O Sodium (136-145) mEq/L Potassium (3.5-5.1) mEq/L Chloride (98-107) mEq/L Carbon Dioxide (21-32) mEq/L Anion Gap (5-15) BUN (7-18) mg/dL Creatinine (0.7-1.3) mg/dL Est Cr Clr Drug Dosing mL/min Estimated GFR (MDRD) (>60) mL/min BUN/Creatinine Ratio (14-18) Glucose (80-115) mg/dL POC Glucose 104 141 H 141 H (80-115) mg/dL Calcium (8.5-10.1) mg/dL Phosphorus (2.6-4.7) mg/dL Magnesium (1.8-2.4) mg/dl Total Bilirubin (0.2-1.0) mg/dL AST (15-37) U/L ALT (16-63) U/L Alkaline Phosphatase (46-116) U/L Troponin I (0.00-0.056) ng/mL Total Protein (6.4-8.2) g/dl Albumin (3.4-5.0) g/dl Globulin gm/dL Albumin/Globulin Ratio (1-2) 11/14/19 11/14/19 11/14/19 Range/Units 04:10 04:10 04:10 WBC 12.47 H (4.23-9.07) K/mm3 RBC 6.15 H (4.63-6.08) M/mm3 Hgb 16.1 (13.7-17.5) gm/dl Hct 51.8 H (40.1-51.0) % MCV 84.2 (79.0-92.2) fl MCH 26.2 (25.7-32.2) pg MCHC 31.1 L (32.2-35.5) g/dl RDW Std Deviation 50.4 H (35.1-43.9) fL Plt Count 214 (163-337) K/mm3 MPV 10.5 (9.4-12.3) fl Neut % (Auto) 93.4 H (34.0-67.9) % Lymph % (Auto) 1.8 L (21.8-53.1) % Hoke % (Auto) 4.1 L (5.3-12.2) % Eos % (Auto) 0.3 L (0.8-7.0) Baso % (Auto) 0.1 (0.1-1.2) % Neut # (Auto) 11.65 H (1.78-5.38) K/mm3 Lymph # (Auto) 0.22 L (1.32-3.57) K/mm3 Hoke # (Auto) 0.51 (0.30-0.82) K/mm3 Eos # (Auto) 0.04 (0.04-0.54) K/mm3 Baso # (Auto) 0.01 (0.01-0.08) K/mm3 Manual Slide Review Abnormal smear Puncture Site ABG pH (7.35-7.45) ABG pCO2 (35.0-45.0) mmHg ABG pO2 (80.0-100.0) mmHg ABG HCO3 (22.0-26.0) meq/L ABG O2 Saturation (96.0-97.0) % ABG Base Excess (-2-2.0) Chin Test A-a Gradient mmHg O2 Delivery Device FiO2 (21.00-100.00) % Tidal Volume cc PEEP cmH20 Pressure Support cmH2O Sodium 144 (136-145) mEq/L Potassium 3.6 (3.5-5.1) mEq/L Chloride 102 (98-107) mEq/L Carbon Dioxide 38 H (21-32) mEq/L Anion Gap 7.6 (5-15) BUN 27 H (7-18) mg/dL Creatinine 1.5 H (0.7-1.3) mg/dL Est Cr Clr Drug Dosing 46.67 mL/min Estimated GFR (MDRD) 48 (>60) mL/min BUN/Creatinine Ratio 18.0 (14-18) Glucose 160 H (80-115) mg/dL POC Glucose (80-115) mg/dL Calcium 8.7 (8.5-10.1) mg/dL Phosphorus 4.9 H (2.6-4.7) mg/dL Magnesium 2.4 (1.8-2.4) mg/dl Total Bilirubin 1.2 H (0.2-1.0) mg/dL AST 58 H (15-37) U/L ALT 35 (16-63) U/L Alkaline Phosphatase 78 (46-116) U/L Troponin I 0.039 (0.00-0.056) ng/mL Total Protein 6.7 (6.4-8.2) g/dl Albumin 2.6 L (3.4-5.0) g/dl Globulin 4.1 gm/dL Albumin/Globulin Ratio 0.6 L (1-2) 11/14/19 11/14/19 11/14/19 Range/Units 06:00 06:08 11:04 WBC (4.23-9.07) K/mm3 RBC (4.63-6.08) M/mm3 Hgb (13.7-17.5) gm/dl Hct (40.1-51.0) % MCV (79.0-92.2) fl MCH (25.7-32.2) pg MCHC (32.2-35.5) g/dl RDW Std Deviation (35.1-43.9) fL Plt Count (163-337) K/mm3 MPV (9.4-12.3) fl Neut % (Auto) (34.0-67.9) % Lymph % (Auto) (21.8-53.1) % Hoke % (Auto) (5.3-12.2) % Eos % (Auto) (0.8-7.0) Baso % (Auto) (0.1-1.2) % Neut # (Auto) (1.78-5.38) K/mm3 Lymph # (Auto) (1.32-3.57) K/mm3 Hoke # (Auto) (0.30-0.82) K/mm3 Eos # (Auto) (0.04-0.54) K/mm3 Baso # (Auto) (0.01-0.08) K/mm3 Manual Slide Review Puncture Site Rt radial ABG pH 7.46 H (7.35-7.45) ABG pCO2 59.9 H (35.0-45.0) mmHg ABG pO2 81.0 (80.0-100.0) mmHg ABG HCO3 41.6 H (22.0-26.0) meq/L ABG O2 Saturation 95.7 L (96.0-97.0) % ABG Base Excess 14.3 H (-2-2.0) Chin Test Positive A-a Gradient mmHg O2 Delivery Device Ventilator FiO2 0.00 L (21.00-100.00) % Tidal Volume 400.0 cc PEEP 13.0 cmH20 Pressure Support 0.0 cmH2O Sodium (136-145) mEq/L Potassium (3.5-5.1) mEq/L Chloride (98-107) mEq/L Carbon Dioxide (21-32) mEq/L Anion Gap (5-15) BUN (7-18) mg/dL Creatinine (0.7-1.3) mg/dL Est Cr Clr Drug Dosing mL/min Estimated GFR (MDRD) (>60) mL/min BUN/Creatinine Ratio (14-18) Glucose (80-115) mg/dL POC Glucose 131 H 142 H (80-115) mg/dL Calcium (8.5-10.1) mg/dL Phosphorus (2.6-4.7) mg/dL Magnesium (1.8-2.4) mg/dl Total Bilirubin (0.2-1.0) mg/dL AST (15-37) U/L ALT (16-63) U/L Alkaline Phosphatase (46-116) U/L Troponin I (0.00-0.056) ng/mL Total Protein (6.4-8.2) g/dl Albumin (3.4-5.0) g/dl Globulin gm/dL Albumin/Globulin Ratio (1-2) Darryl Results Last 24 Hours: Microbiology 11/11/19 23:56 Aerobic Blood Culture - Preliminary Blood - Venous - Lab Draw NO GROWTH AFTER 2 DAYS Anaerobic Blood Culture - Preliminary NO GROWTH AFTER 2 DAYS 11/11/19 23:40 Aerobic Blood Culture - Preliminary Blood - Venous NO GROWTH AFTER 2 DAYS Anaerobic Blood Culture - Preliminary NO GROWTH AFTER 2 DAYS Med Orders - Current: Current Medications Acetaminophen (Tylenol) 650 mg PO Q4H PRN PRN Reason: Pain (Mild 1-3)/fever Albuterol (Proventil Neb Soln) 2.5 mg NEB Q2H PRN PRN Reason: Dyspnea Albuterol/Ipratropium (Duoneb 3.0-0.5 Mg/3 Ml) 3 ml NEB QIDRT [facility] Last Admin: 11/14/19 09:37 Dose: 3 ml Enoxaparin Sodium (Lovenox) 40 mg SUBCUT Q12H [facility] Last Admin: 11/14/19 03:14 Dose: 40 mg Furosemide (Lasix) 40 mg IVPUSH BID [facility] Last Admin: 11/14/19 09:32 Dose: Not Given Propofol (Diprivan 100 Ml) 100 mls @ 3.718 mls/hr IV TITRATE [facility]; Protocol Last Titration: 11/13/19 01:36 Dose: 0 mcg/kg/min, 0 mls/hr Piperacillin Sod/Tazobactam (Sod 4.5 gm/ Sodium Chloride) 100 mls @ 25 mls/hr IV Q8H [facility] Last Admin: 11/14/19 09:16 Dose: 25 mls/hr Midazolam HCl 50 mg/ Sodium (Chloride) 50 mls @ 4 mls/hr IV TITRATE [facility]; Protocol Last Admin: 11/14/19 08:40 Dose: 10 mg/hr, 10 mls/hr Fentanyl 2,500 mcg/ Sodium (Chloride) 250 mls @ 5 mls/hr IV TITRATE [facility]; Protocol Last Titration: 11/14/19 03:20 Dose: 9 mcg/hr, 0.9 mls/hr Sodium Chloride (Normal Saline) 1,000 mls @ 100 mls/hr IV ASDIRECTED [facility] Last Admin: 11/14/19 06:36 Dose: 100 mls/hr Insulin Human Lispro (Humalog) 0 unit SUBCUT QIDACANDBED [facility]; Protocol Last Admin: 11/14/19 06:41 Dose: Not Given Methylprednisolone Sodium Succinate (Solu-Medrol) 40 mg IVPUSH Q6H [facility] Last Admin: 11/14/19 10:27 Dose: 40 mg Mometasone Furoate/Formoterol Fumar (Dulera 200-5 Mcg) 2 puff IH BID [facility] Last Admin: 11/13/19 10:22 Dose: Not Given Pantoprazole Sodium (Protonix Iv) 40 mg IVPUSH BID [facility] Last Admin: 11/14/19 09:16 Dose: 40 mg Discontinued Medications Albuterol/Ipratropium (Duoneb 3.0-0.5 Mg/3 Ml) 3 ml NEB QID [facility] Last Admin: 11/12/19 20:35 Dose: 3 ml Enoxaparin Sodium (Lovenox) 40 mg SUBCUT DAILY [facility] Etomidate (Amidate) 38 mg IVPUSH ONETIME ONE Stop: 11/12/19 23:42 Last Admin: 11/12/19 23:46 Dose: 38 mg Etomidate (Amidate) 40 mg IVPUSH .STK-MED ONE Stop: 11/12/19 00:01 Furosemide (Lasix) 40 mg IVPUSH NOW ONE Stop: 11/12/19 02:49 Last Admin: 11/12/19 03:49 Dose: 40 mg Furosemide (Lasix) 40 mg IVPUSH NOW ONE Stop: 11/12/19 10:01 Last Admin: 11/12/19 11:31 Dose: 40 mg Furosemide (Lasix) 40 mg IVPUSH ONETIME ONE Stop: 11/12/19 18:01 Last Admin: 11/12/19 17:31 Dose: 40 mg Furosemide (Lasix) 40 mg IVPUSH BIDDIURETIC [facility] Last Admin: 11/13/19 05:40 Dose: 40 mg Furosemide (Lasix) 60 mg IVPUSH NOW ONE Stop: 11/13/19 01:32 Last Admin: 11/13/19 01:35 Dose: 60 mg Furosemide (Lasix) 60 mg IVPUSH Q8H [facility] Last Admin: 11/14/19 06:35 Dose: Not Given Ceftriaxone Sodium 1 gm/ (Sodium Chloride) 100 mls @ 200 mls/hr IV Q24H [facility] Last Admin: 11/12/19 16:24 Dose: 200 mls/hr Propofol (Diprivan 100 Ml) Confirm Administered Dose 100 mls @ as directed .ROUTE .STK-MED ONE Stop: 11/12/19 23:36 Last Admin: 11/13/19 00:51 Dose: Not Given Piperacillin Sod/Tazobactam (Sod 4.5 gm/ Sodium Chloride) 100 mls @ 200 mls/hr IV ONETIME ONE Stop: 11/13/19 01:08 Last Admin: 11/13/19 01:29 Dose: 200 mls/hr Fentanyl 2,500 mcg/ Sodium (Chloride) 250 mls @ 61.96 mls/hr IV TITRATE [facility]; Protocol Potassium Chloride 10 meq/ (Premix) 100 mls @ 100 mls/hr IV Q1H [facility] Stop: 11/13/19 12:14 Last Admin: 11/13/19 12:10 Dose: 100 mls/hr Magnesium Sulfate 2 gm/ Premix 50 mls @ 25 mls/hr IV ONETIME ONE Stop: 11/13/19 10:08 Last Admin: 11/13/19 08:38 Dose: 25 mls/hr Lactated Ringer's (Ringers, Lactated) 1,000 mls @ 100 mls/hr IV ASDIRECTED [facility] Last Admin: 11/13/19 19:55 Dose: 100 mls/hr Lactated Ringer's (Ringers, Lactated) 500 mls @ 999 mls/hr IV .BOLUS ONE Stop: 11/13/19 20:49 Last Admin: 11/13/19 20:22 Dose: 999 mls/hr Lidocaine HCl (Xylocaine 2%) Confirm Administered Dose 100 mg .ROUTE .STK-MED ONE Stop: 11/12/19 23:36 Last Admin: 11/13/19 00:51 Dose: Not Given Lidocaine HCl (Xylocaine 2%) 100 mg IVPUSH ONETIME ONE Stop: 11/12/19 23:46 Last Admin: 11/12/19 23:46 Dose: 100 mg Midazolam HCl (Versed 1 Mg/Ml) 5 mg IVPUSH ONETIME ONE Stop: 11/13/19 00:31 Last Admin: 11/13/19 00:30 Dose: 5 mg Midazolam HCl (Versed 1 Mg/Ml) 5 mg .ROUTE .STK-MED ONE Stop: 11/12/19 00:01 Piperacillin Sod/Tazobactam Sod (Piperacil-Tazobact) Confirm Administered Dose 4.5 gm .ROUTE .STK-MED ONE Stop: 11/13/19 08:33 Last Admin: 11/13/19 08:49 Dose: Not Given Succinylcholine Chloride (Quelicin) 187 mg IV ONETIME ONE Stop: 11/12/19 23:43 Last Admin: 11/12/19 23:41 Dose: 187 mg Succinylcholine Chloride (Quelicin) 187 mg IV ONETIME ONE Stop: 11/12/19 11:57 Last Admin: 11/12/19 23:56 Dose: 187 mg Succinylcholine Chloride (Quelicin) 400 mg .ROUTE .STK-MED ONE Stop: 11/12/19 00:01 - Exam Quality Assessment: Supplemental Oxygen (Endotracheal tube placed), Urine Catheter General: Sedated HEENT: Pupils Equal Neck: Supple Lungs: Rales, Other (Mechanically ventilated) Cardiovascular: Regular Rate, Regular Rhythm GI/Abdominal Exam: Soft, No Distention, Abnormal Bowel Sounds (Diffusely decreased) Extremities: Pedal Edema (2+) Skin: Warm, Dry, Intact Sepsis Event Note - Evaluation Sepsis Screening Result: No Definite Risk - Focused Exam Vital Signs: Vital Signs Temp Pulse Resp BP BP BP Pulse Ox 11/14/19 11:22 11/14/19 10:33 56 L 15 106/67 95 11/14/19 09:50 11/14/19 09:37 11/14/19 09:00 65 15 99/65 96 11/14/19 08:14 11/14/19 08:00 97.8 F 65 15 95/59 L 93 L 11/14/19 07:01 15 95/59 L 93 L 11/14/19 06:40 98.6 F 15 96/58 L 94 L 11/14/19 06:00 15 95/63 93 L 11/14/19 05:43 11/14/19 05:41 11/14/19 04:54 15 99/65 94 L 11/14/19 04:00 96.8 F L 15 99/65 94 L 11/14/19 03:00 15 97/63 94 L 11/14/19 02:28 11/14/19 01:51 15 94/58 L 96 11/14/19 01:00 15 94/58 L 96 11/14/19 00:00 63 15 98/57 L 96 11/13/19 23:50 Pulse Ox 11/14/19 11:22 95 11/14/19 10:33 11/14/19 09:50 96 11/14/19 09:37 94 L 11/14/19 09:00 11/14/19 08:14 95 11/14/19 08:00 11/14/19 07:01 11/14/19 06:40 11/14/19 06:00 11/14/19 05:43 94 L 11/14/19 05:41 94 L 11/14/19 04:54 11/14/19 04:00 11/14/19 03:00 11/14/19 02:28 94 L 11/14/19 01:51 11/14/19 01:00 11/14/19 00:00 11/13/19 23:50 96 Date Exam was Performed: 11/14/19 Time Exam was Performed: 13:30 - Problem List Review Problem List Initiated/Reviewed/Updated: Yes - My Orders Last 24 Hours: My Active Orders 11/13/19 22:50 Sodium Chloride 0.9% [Normal Saline] 1,000 ml IV ASDIRECTED 11/13/19 Dinner Nothing Per Oral Diet [DIET] 11/14/19 09:00 Furosemide [Lasix] 40 mg IVPUSH BID 11/14/19 09:30 Ventilator Assessment [RT Ventilator, Adult] [RC] ASDIRECTED 11/15/19 05:11 CBC WITH AUTO DIFF [HEME] AM COMPREHENSIVE METABOLIC PN,CMP [CHEM] AM MAGNESIUM [CHEM] AM 11/16/19 05:11 COMPREHENSIVE METABOLIC PN,CMP [CHEM] AM MAGNESIUM [CHEM] AM 11/17/19 05:11 COMPREHENSIVE METABOLIC PN,CMP [CHEM] AM MAGNESIUM [CHEM] AM - Assessment Assessment:: Mean arterial pressure 73-80 T-max 98.6 -4612 mL fluid balance (hospitalization); +1565 last 24 hours Ventilator settings: Assist control - volume controlled Tidal volume 400 (6ml/kg PBW) Respiratory rate 15 PEEP 10 FiO2 60% I:E ratio 1:4 Drips: Versed and fentanyl titrate for RASS of -3 NS 100ml/hr Echocardiogram: 1. Left regular ejection fraction, by visual estimation, is 60 to 65%. 2. "D-shaped" septum and abnormal septal bounce consistent with RV pressure overload. 3. Mildly reduced right ventricular systolic function. 4. Right ventricular size is severely enlarged. 5. No aortic valve stenosis. 6. Mild aortic valve regurgitation. 7. Trace mitral valve regurgitation. 8. Mild tricuspid valve regurgitation. 9. Mild dilatation of the ascending aorta. Ascending 4.5 cm. 10. The right ventricular systolic pressure is severely elevated at 64.0 mmHg. 11. No regional wall motion abnormalities. - Plan Plan:: Assessment * Respiratory failure * Mechanical ventilation: weaning PEEP/FiO2 * RASS -2 to -3 * NPO * NGT * New onset CHF: Heart failure with preserved ejection fraction * BNP 3380 in the emergency room * Left ventricular ejection fraction 60 to 65% * Right ventricular systolic pressure severely elevated at 64.0 mmHg. * CT consistent with CHF, cardiomegaly, small right sided pleural effusion, small amount of ascites around the spleen, body wall edema. * Lasix 40 mg IV given in the emergency room and this morning * Held Lasix overnight * Severe pulmonary hypertension. * Renal insufficiency/acute renal injury * Likely 2/2 intravascular hypovolemia from diuresis * Started on IVF overnight * COPD exacerbation * Spirometry from March 2019 distant with moderate obstructive airway disease without reversibility * Initial blood gas demonstrating respiratory acidosis PCO2 76.5 and repeat at 88.3. * History of productive cough * On Symbicort at home. * Chronic respiratory acidosis with appropriate metabolic compensation * Arterial blood gas: pH 7.46, PCO2 60.0, PO2 81.0, HCO3 41.6, O2 saturation 95.7%: On above ventilator settings * Untreated hypertension * Not on blood pressure medication * Prediabetes * HbA1c 6.0% * Positive d-dimer with negative CTA Plan * Admit to ICU * Continue mechanical ventilation and wean as tolerated * Lasix PRN based on volume status * Cautious diuresis secondary to right-sided heart failure * DuoNeb 4 times daily * Albuterol nebulizer every 2 hours as needed * Solu-Medrol 40 mg every 6 hours * Continue Zosyn secondary to difficult intubation and concern for aspiration * Follow I's and O's strictly * Daily weights * NPO * CBC, CMP, mag, hemoglobin A1c, TSH in the morning * Follow ABGs * VTE prophylaxis with Lovenox * CODE STATUS full code * Plan to continue weaning over the next two days. He may be difficult to extubated 2/2 trauma from intubation.
[2019-11-14] MEDS ORDERED: Furosemide 40 MG/4 ML VIAL IVPUSH ONE (14:38)
[2019-11-14] MEDS: fentaNYL 2,500 MCG in Sodium Chloride 0.9% 200 ML IV SCH (15:45)
[2019-11-14] MEDS ORDERED: Dexamethasone 10 MG/ML SDV IVPUSH ONE (17:00)
[2019-11-15] MEDS: Piperacillin/Tazobactam 4.5 GM in Sodium Chloride 0.9% 100 ML IV SCH ×3 (01:01→16:55)
[2019-11-15] MEDS: Enoxaparin 40 MG/0.4 ML Syringe SUBCUT SCH ×2 (03:07→15:02)
[2019-11-15] MEDS: Sodium Chloride 0.9% 1,000 ML IV SCH (03:08)
[2019-11-15] MEDS: Midazolam 50 MG in Sodium Chloride 0.9% 40 ML IV SCH ×5 (05:13→22:55)
[2019-11-15] MEDS: Insulin Lispro 100 Units/ML 3 ML Vial SUBCUT SCH ×4 (06:08→22:00)
[2019-11-15] MEDS: Albuterol/Ipratropium 3.0-0.5 MG/3 ML Neb Soln NEB SCH ×4 (06:19→20:16)
[2019-11-15] MEDS: Pantoprazole 40 MG Vial IVPUSH SCH ×2 (08:03→20:52)
[2019-11-15] MEDS: Furosemide 40 MG/4 ML VIAL IVPUSH SCH ×2 (08:04→20:49)
[2019-11-15] MEDS: D5 1/2 NS w/ 20 mEq/L KCl 1,000 ML IV SCH ×2 (09:08→22:15)
[2019-11-15] MEDS: fentaNYL 2,500 MCG in Sodium Chloride 0.9% 200 ML IV SCH (11:39)
--- NOTE | 2019-11-15 11:44 | PCM.PN ---
- General Info Date of Service: 11/15/19 Admission Dx/Problem (Free Text): Admission Diagnosis/Problem Admission Diagnosis/Problem Pulmonary hypertension Subjective Update: Patient continues to be mechanically ventilated and sedated. Stable overnight with weaning oxygen. Functional Status: Reports: Other (Sedated and mechanically ventilated) - Patient Data Vitals - Most Recent: Last Vital Signs Temp 97.9 F 11/15/19 08:00 Pulse 57 L 11/15/19 04:26 Resp 15 11/15/19 08:00 BP 131/79 11/15/19 08:00 Pulse Ox 90 L 11/15/19 11:05 Weight - Most Recent: 260 lb 9.6 oz I&O - Last 24 Hours: Intake & Output 11/14/19 11/15/19 11/15/19 22:59 06:59 14:59 Intake Total 1082 1638 Output Total 1160 915 650 Balance -78 723 -650 Lab Results Last 24 Hours: Laboratory Results - last 24 hr 11/14/19 11/14/19 11/15/19 Range/Units 17:20 22:11 05:12 WBC 16.47 H (4.23-9.07) K/mm3 RBC 6.49 H (4.63-6.08) M/mm3 Hgb 16.7 (13.7-17.5) gm/dl Hct 54.8 H (40.1-51.0) % MCV 84.4 (79.0-92.2) fl MCH 25.7 (25.7-32.2) pg MCHC 30.5 L (32.2-35.5) g/dl RDW Std Deviation 51.2 H (35.1-43.9) fL Plt Count 208 (163-337) K/mm3 MPV 11.3 (9.4-12.3) fl Neut % (Auto) 94.7 H (34.0-67.9) % Lymph % (Auto) 1.9 L (21.8-53.1) % [place] % (Auto) 3.2 L (5.3-12.2) % Eos % (Auto) 0 L (0.8-7.0) Baso % (Auto) 0.0 L (0.1-1.2) % Neut # (Auto) 15.58 H (1.78-5.38) K/mm3 Lymph # (Auto) 0.32 L (1.32-3.57) K/mm3 [place] # (Auto) 0.53 (0.30-0.82) K/mm3 Eos # (Auto) 0.00 L (0.04-0.54) K/mm3 Baso # (Auto) 0.00 L (0.01-0.08) K/mm3 Manual Slide Review Abnormal smear Puncture Site ABG pH (7.35-7.45) ABG pCO2 (35.0-45.0) mmHg ABG pO2 (80.0-100.0) mmHg ABG HCO3 (22.0-26.0) meq/L ABG O2 Saturation (96.0-97.0) % ABG Base Excess (-2-2.0) A-a Gradient mmHg O2 Delivery Device FiO2 (21.00-100.00) % Tidal Volume cc PEEP cmH20 Sodium (136-145) mEq/L Potassium (3.5-5.1) mEq/L Chloride (98-107) mEq/L Carbon Dioxide (21-32) mEq/L Anion Gap (5-15) BUN (7-18) mg/dL Creatinine (0.7-1.3) mg/dL Est Cr Clr Drug Dosing mL/min Estimated GFR (MDRD) (>60) mL/min BUN/Creatinine Ratio (14-18) Glucose (80-115) mg/dL POC Glucose 134 H 131 H (80-115) mg/dL Calcium (8.5-10.1) mg/dL Magnesium (1.8-2.4) mg/dl Total Bilirubin (0.2-1.0) mg/dL AST (15-37) U/L ALT (16-63) U/L Alkaline Phosphatase (46-116) U/L Total Protein (6.4-8.2) g/dl Albumin (3.4-5.0) g/dl Globulin gm/dL Albumin/Globulin Ratio (1-2) 11/15/19 11/15/19 11/15/19 Range/Units 05:12 06:06 07:55 WBC (4.23-9.07) K/mm3 RBC (4.63-6.08) M/mm3 Hgb (13.7-17.5) gm/dl Hct (40.1-51.0) % MCV (79.0-92.2) fl MCH (25.7-32.2) pg MCHC (32.2-35.5) g/dl RDW Std Deviation (35.1-43.9) fL Plt Count (163-337) K/mm3 MPV (9.4-12.3) fl Neut % (Auto) (34.0-67.9) % Lymph % (Auto) (21.8-53.1) % [place] % (Auto) (5.3-12.2) % Eos % (Auto) (0.8-7.0) Baso % (Auto) (0.1-1.2) % Neut # (Auto) (1.78-5.38) K/mm3 Lymph # (Auto) (1.32-3.57) K/mm3 [place] # (Auto) (0.30-0.82) K/mm3 Eos # (Auto) (0.04-0.54) K/mm3 Baso # (Auto) (0.01-0.08) K/mm3 Manual Slide Review Puncture Site Rt radial ABG pH 7.45 (7.35-7.45) ABG pCO2 58.9 H (35.0-45.0) mmHg ABG pO2 70.0 L (80.0-100.0) mmHg ABG HCO3 40.3 H (22.0-26.0) meq/L ABG O2 Saturation 91.9 L (96.0-97.0) % ABG Base Excess 13.1 H (-2-2.0) A-a Gradient 250 mmHg O2 Delivery Device Ventilator FiO2 55.00 (21.00-100.00) % Tidal Volume 400.0 cc PEEP 10.0 cmH20 Sodium 148 H (136-145) mEq/L Potassium 3.3 L (3.5-5.1) mEq/L Chloride 107 (98-107) mEq/L Carbon Dioxide 37 H (21-32) mEq/L Anion Gap 7.3 (5-15) BUN 33 H (7-18) mg/dL Creatinine 1.4 H (0.7-1.3) mg/dL Est Cr Clr Drug Dosing 50.00 mL/min Estimated GFR (MDRD) 52 (>60) mL/min BUN/Creatinine Ratio 23.6 H (14-18) Glucose 129 H (80-115) mg/dL POC Glucose 77 L (80-115) mg/dL Calcium 8.4 L (8.5-10.1) mg/dL Magnesium 2.3 (1.8-2.4) mg/dl Total Bilirubin 0.9 (0.2-1.0) mg/dL AST 97 H (15-37) U/L ALT 39 (16-63) U/L Alkaline Phosphatase 70 (46-116) U/L Total Protein 6.6 (6.4-8.2) g/dl Albumin 2.5 L (3.4-5.0) g/dl Globulin 4.1 gm/dL Albumin/Globulin Ratio 0.6 L (1-2) Darryl Results Last 24 Hours: Microbiology 11/11/19 23:56 Aerobic Blood Culture - Preliminary Blood - Venous - Lab Draw NO GROWTH AFTER 3 DAYS Anaerobic Blood Culture - Preliminary NO GROWTH AFTER 3 DAYS 11/11/19 23:40 Aerobic Blood Culture - Preliminary Blood - Venous NO GROWTH AFTER 3 DAYS Anaerobic Blood Culture - Preliminary NO GROWTH AFTER 3 DAYS Med Orders - Current: Current Medications Acetaminophen (Tylenol) 650 mg PO Q4H PRN PRN Reason: Pain (Mild 1-3)/fever Albuterol (Proventil Neb Soln) 2.5 mg NEB Q2H PRN PRN Reason: Dyspnea Albuterol/Ipratropium (Duoneb 3.0-0.5 Mg/3 Ml) 3 ml NEB QIDRT [facility] Last Admin: 11/15/19 09:58 Dose: 3 ml Enoxaparin Sodium (Lovenox) 40 mg SUBCUT Q12H [facility] Last Admin: 11/15/19 03:07 Dose: 40 mg Furosemide (Lasix) 40 mg IVPUSH BID [facility] Last Admin: 11/15/19 08:04 Dose: 40 mg Propofol (Diprivan 100 Ml) 100 mls @ 3.718 mls/hr IV TITRATE [facility]; Protocol Last Titration: 11/14/19 21:55 Dose: 0 mcg/kg/min, 0 mls/hr Piperacillin Sod/Tazobactam (Sod 4.5 gm/ Sodium Chloride) 100 mls @ 25 mls/hr IV Q8H [facility] Last Admin: 11/15/19 08:03 Dose: 25 mls/hr Midazolam HCl 50 mg/ Sodium (Chloride) 50 mls @ 4 mls/hr IV TITRATE [facility]; Protocol Last Titration: 11/15/19 11:11 Dose: 17 mg/hr, 17 mls/hr Fentanyl 2,500 mcg/ Sodium (Chloride) 250 mls @ 5 mls/hr IV TITRATE [facility]; Protocol Last Titration: 11/15/19 11:10 Dose: Infused Potassium Chloride/Dextrose/Sod Cl (D5 1/2 Ns W/ 20 Meq/L Kcl) 1,000 mls @ 75 mls/hr IV ASDIRECTED [facility] Last Admin: 11/15/19 09:08 Dose: 75 mls/hr Insulin Human Lispro (Humalog) 0 unit SUBCUT QIDACANDBED [facility]; Protocol Last Admin: 11/15/19 06:08 Dose: Not Given Methylprednisolone Sodium Succinate (Solu-Medrol) 40 mg IVPUSH Q6H [facility] Last Admin: 11/14/19 15:21 Dose: 40 mg Metoclopramide HCl (Reglan) 10 mg IVPUSH Q6H [facility] Mometasone Furoate/Formoterol Fumar (Dulera 200-5 Mcg) 2 puff IH BID [facility] Last Admin: 11/13/19 10:22 Dose: Not Given Pantoprazole Sodium (Protonix Iv) 40 mg IVPUSH BID [facility] Last Admin: 11/15/19 08:03 Dose: 40 mg Discontinued Medications Albuterol/Ipratropium (Duoneb 3.0-0.5 Mg/3 Ml) 3 ml NEB QID [facility] Last Admin: 11/12/19 20:35 Dose: 3 ml Dexamethasone (Dexamethasone) 10 mg IVPUSH ONETIME ONE Stop: 11/14/19 17:01 Last Admin: 11/14/19 17:17 Dose: 10 mg Enoxaparin Sodium (Lovenox) 40 mg SUBCUT DAILY [facility] Etomidate (Amidate) 38 mg IVPUSH ONETIME ONE Stop: 11/12/19 23:42 Last Admin: 11/12/19 23:46 Dose: 38 mg Etomidate (Amidate) 40 mg IVPUSH .STK-MED ONE Stop: 11/12/19 00:01 Furosemide (Lasix) 40 mg IVPUSH NOW ONE Stop: 11/12/19 02:49 Last Admin: 11/12/19 03:49 Dose: 40 mg Furosemide (Lasix) 40 mg IVPUSH NOW ONE Stop: 11/12/19 10:01 Last Admin: 11/12/19 11:31 Dose: 40 mg Furosemide (Lasix) 40 mg IVPUSH ONETIME ONE Stop: 11/12/19 18:01 Last Admin: 11/12/19 17:31 Dose: 40 mg Furosemide (Lasix) 40 mg IVPUSH BIDDIURETIC [facility] Last Admin: 11/13/19 05:40 Dose: 40 mg Furosemide (Lasix) 60 mg IVPUSH NOW ONE Stop: 11/13/19 01:32 Last Admin: 11/13/19 01:35 Dose: 60 mg Furosemide (Lasix) 60 mg IVPUSH Q8H [facility] Last Admin: 11/14/19 06:35 Dose: Not Given Furosemide (Lasix) 40 mg IVPUSH NOW ONE Stop: 11/14/19 14:39 Last Admin: 11/14/19 15:21 Dose: 40 mg Ceftriaxone Sodium 1 gm/ (Sodium Chloride) 100 mls @ 200 mls/hr IV Q24H [facility] Last Admin: 11/12/19 16:24 Dose: 200 mls/hr Propofol (Diprivan 100 Ml) Confirm Administered Dose 100 mls @ as directed .ROUTE .STK-MED ONE Stop: 11/12/19 23:36 Last Admin: 11/13/19 00:51 Dose: Not Given Piperacillin Sod/Tazobactam (Sod 4.5 gm/ Sodium Chloride) 100 mls @ 200 mls/hr IV ONETIME ONE Stop: 11/13/19 01:08 Last Admin: 11/13/19 01:29 Dose: 200 mls/hr Fentanyl 2,500 mcg/ Sodium (Chloride) 250 mls @ 61.96 mls/hr IV TITRATE [facility]; Protocol Potassium Chloride 10 meq/ (Premix) 100 mls @ 100 mls/hr IV Q1H [facility] Stop: 11/13/19 12:14 Last Admin: 11/13/19 12:10 Dose: 100 mls/hr Magnesium Sulfate 2 gm/ Premix 50 mls @ 25 mls/hr IV ONETIME ONE Stop: 11/13/19 10:08 Last Admin: 11/13/19 08:38 Dose: 25 mls/hr Lactated Ringer's (Ringers, Lactated) 1,000 mls @ 100 mls/hr IV ASDIRECTED [facility] Last Admin: 11/13/19 19:55 Dose: 100 mls/hr Sodium Chloride (Normal Saline) 1,000 mls @ 100 mls/hr IV ASDIRECTED [facility] Last Admin: 11/15/19 03:08 Dose: 100 mls/hr Lactated Ringer's (Ringers, Lactated) 500 mls @ 999 mls/hr IV .BOLUS ONE Stop: 11/13/19 20:49 Last Admin: 11/13/19 20:22 Dose: 999 mls/hr Lidocaine HCl (Xylocaine 2%) Confirm Administered Dose 100 mg .ROUTE .STK-MED ONE Stop: 11/12/19 23:36 Last Admin: 11/13/19 00:51 Dose: Not Given Lidocaine HCl (Xylocaine 2%) 100 mg IVPUSH ONETIME ONE Stop: 11/12/19 23:46 Last Admin: 11/12/19 23:46 Dose: 100 mg Midazolam HCl (Versed 1 Mg/Ml) 5 mg IVPUSH ONETIME ONE Stop: 11/13/19 00:31 Last Admin: 11/13/19 00:30 Dose: 5 mg Midazolam HCl (Versed 1 Mg/Ml) 5 mg .ROUTE .STK-MED ONE Stop: 11/12/19 00:01 Piperacillin Sod/Tazobactam Sod (Piperacil-Tazobact) Confirm Administered Dose 4.5 gm .ROUTE .STK-MED ONE Stop: 11/13/19 08:33 Last Admin: 11/13/19 08:49 Dose: Not Given Succinylcholine Chloride (Quelicin) 187 mg IV ONETIME ONE Stop: 11/12/19 23:43 Last Admin: 11/12/19 23:41 Dose: 187 mg Succinylcholine Chloride (Quelicin) 187 mg IV ONETIME ONE Stop: 11/12/19 11:57 Last Admin: 11/12/19 23:56 Dose: 187 mg Succinylcholine Chloride (Quelicin) 400 mg .ROUTE .STK-MED ONE Stop: 11/12/19 00:01 - Exam Quality Assessment: Supplemental Oxygen (Mechanical ventilation), Urine Catheter General: Sedated HEENT: Pupils Equal, Mucous Membr. Moist/[place], Other (ET tube, nasogastric tube in place) Lungs: Decreased Breath Sounds (Bilaterally) Cardiovascular: Regular Rate, Regular Rhythm GI/Abdominal Exam: Soft, No Distention, Abnormal Bowel Sounds (Decreased) Extremities: Normal Inspection, Pedal Edema (Trace) Skin: Warm, Dry, Intact Neurological: No New Focal Deficit Sepsis Event Note - Evaluation Sepsis Screening Result: No Definite Risk - Focused Exam Vital Signs: Vital Signs Temp Pulse Resp BP Pulse Ox Pulse Ox 11/15/19 11:05 90 L 11/15/19 09:58 91 L 11/15/19 08:13 91 L 11/15/19 08:00 97.9 F 15 131/79 90 L 11/15/19 06:21 92 L 11/15/19 04:26 57 L 15 91 L 11/15/19 04:00 98 F 15 127/76 90 L 11/15/19 02:23 60 15 91 L 11/15/19 00:23 64 15 92 L Date Exam was Performed: 11/15/19 Time Exam was Performed: 13:02 - Problem List Review Problem List Initiated/Reviewed/Updated: Yes - My Orders Last 24 Hours: My Active Orders 11/14/19 16:16 Antiembolic Devices [RC] BID Antiembolic Hose [OM.PC] Routine 11/15/19 08:30 D5 1/2 NS w/ 20 mEq/L KCl 1,000 ml IV ASDIRECTED 11/15/19 11:15 Metoclopramide [Reglan] 10 mg IVPUSH Q6H 11/16/19 05:11 COMPREHENSIVE METABOLIC PN,CMP [CHEM] AM MAGNESIUM [CHEM] AM 11/17/19 05:11 COMPREHENSIVE METABOLIC PN,CMP [CHEM] AM MAGNESIUM [CHEM] AM - Assessment Assessment:: Mean arterial pressure 70-96 T-max 98.2 gordy. -4600 mL fluid balance (hospitalization); gordy neutral 24 hours Ventilator settings: Assist control - volume controlled Tidal volume 400 (6ml/kg PBW) Respiratory rate 15 PEEP 10 FiO2 65% I:E ratio 1:4 Drips: Versed and fentanyl titrate for RASS of -3 D51/2 with 20meq KCl/l 75ml/hr Echocardiogram: 1. Left regular ejection fraction, by visual estimation, is 60 to 65%. 2. "D-shaped" septum and abnormal septal bounce consistent with RV pressure overload. 3. Mildly reduced right ventricular systolic function. 4. Right ventricular size is severely enlarged. 5. No aortic valve stenosis. 6. Mild aortic valve regurgitation. 7. Trace mitral valve regurgitation. 8. Mild tricuspid valve regurgitation. 9. Mild dilatation of the ascending aorta. Ascending 4.5 cm. 10. The right ventricular systolic pressure is severely elevated at 64.0 mmHg. 11. No regional wall motion abnormalities. - Plan Plan:: Assessment * Respiratory failure * Mechanical ventilation: weaning PEEP/FiO2 * RASS -2 to -3 * NPO * NGT * Increase in WBC (16.4) likely steroid effect. Afebrile. * New onset CHF: Heart failure with preserved ejection fraction * BNP 3380 in the emergency room * Left ventricular ejection fraction 60 to 65% * Right ventricular systolic pressure severely elevated at 64.0 mmHg. * CT consistent with CHF, cardiomegaly, small right sided pleural effusion, small amount of ascites around the spleen, body wall edema. * Lasix 40 mg IV given in the emergency room and this morning * Lasix 40 mg IV Q12H * Severe pulmonary hypertension. * Improvement in edema. * Renal insufficiency/acute renal injury - stable * Likely 2/2 intravascular hypovolemia from diuresis * Switched IV to D5 1/2 NS with 20 KCl/L @ 75 ml/h * COPD exacerbation * Spirometry from March 2019 distant with moderate obstructive airway disease without reversibility * Initial blood gas demonstrating respiratory acidosis PCO2 76.5 and repeat at 88.3 and 99.9. * History of productive cough * On Symbicort at home. * Chronic respiratory acidosis with appropriate metabolic compensation * Arterial blood gas: pH 7.45, PCO2 59, PO2 70, HCO3 40.3, O2 saturation 92%: On above ventilator settings * Untreated hypertension * Not on blood pressure medication * Prediabetes * HbA1c 6.0% * Positive d-dimer with negative CTA Plan * ICU * Continue mechanical ventilation and wean as tolerated * Lasix 40 mg IV Q12H. * Cautious diuresis secondary to right-sided heart failure * DuoNeb 4 times daily * Albuterol nebulizer every 2 hours as needed * Solu-Medrol 40 mg every 6 hours * Given dexamethasone for possible airway edema from difficult intubation * D/C Zosyn. No signs of infection. * Follow I's and O's strictly * Daily weights * Start NG tube feeds. * Sedation vacation daily. * CBC, CMP, mag, in the morning * Follow ABGs * VTE prophylaxis with Lovenox * CODE STATUS full code * Plan to continue weaning over the next two days. He may be difficult to extubated 2/2 trauma from intubation.
[2019-11-15] MEDS: Metoclopramide 10 MG/2 ML SDV IVPUSH SCH ×3 (12:06→23:22)
[2019-11-15] MEDS: propofoL 100 ML IV SCH (20:55)
[2019-11-16] MEDS: Albuterol 0.083% 2.5 MG/3 ML Neb Soln NEB PRN ×2 (00:36→22:44)
[2019-11-16] MEDS: Piperacillin/Tazobactam 4.5 GM in Sodium Chloride 0.9% 100 ML IV SCH ×3 (01:52→16:24)
[2019-11-16] MEDS ORDERED: Furosemide 40 MG/4 ML VIAL IVPUSH ONE (02:47)
[2019-11-16] MEDS: propofoL 100 ML IV SCH (03:37)
[2019-11-16] MEDS: Enoxaparin 40 MG/0.4 ML Syringe SUBCUT SCH ×2 (03:41→14:05)
--- NOTE | 2019-11-16 04:07 | PCM.SN ---
- Free Text/Narrative Note: Called by nursing at 0112 due to worsening oxygenation starting around midnight. Starting at midnight RT increased FiO2 to 100%. When I was called I increased PEEP to 13 then to 15. Oxygen saturations improved to 90-92% and HR decreased to around 50 bpm. CXR showed worsening bilateral pleural effusions. I discussed the case with Dr. Stewart at [facility] who recommended, based on my report, placing bilateral chest tubes. Dr. Stewart also recommended Vecuronium which did improve HR, but not oxygenation. I spoke with Dr. Dumont at 0201 who requested continued medical management. I called Dr. Dumont back at 0349 due to no improvement. Dr. Dumont agreed to bilateral chest tube placement. The chest tube placement oxygenation improved significantly. Immediately we were able to decrease FiO2 to 90% and kept him on a PEEP of 15 with O2 sats around 93%.
[2019-11-16] MEDS: Midazolam 50 MG in Sodium Chloride 0.9% 40 ML IV SCH ×4 (05:07→19:35)
--- NOTE | 2019-11-16 05:35 | PCM.CONS ---
H&P History of Present Illness - General Date of Service: 11/16/19 Admit Problem/Dx: Admission Diagnosis/Problem Admission Diagnosis/Problem Pulmonary hypertension Source of Information: Old Records, Provider History Limitations: Reports: Altered Mental Status - History of Present Illness Initial Comments - Free Text/Narative: The patient is a 59 y/o male admitted in the ICU and intubated. He had an acute change in respiratory status early this am with difficulty maintaining SpO2 and requiring FiO1 100% with PEEP 15. He had findings of bilateral pleural effusions on Chest x-ray. We attempted medical management with lasix and high peep, but pt became bradycardic. Consulted for bilateral chest tubes. - Related Data Allergies/Adverse Reactions: Allergies Allergy/AdvReac Type Severity Reaction Status Date / Time No Known Allergies Allergy Verified 11/12/19 07:44 Home Medications: Home Meds Budesonide/Formoterol Fumarate [Symbicort 160-4.5 Mcg Inhaler] 6 gm PO BID 11/11 [History] Past Medical History HEENT History: Reports: Other (See Below) Other HEENT History: wears glasses for driving he states. Wears hearing aide in right ear. Cardiovascular History: Reports: Hypertension, Other (See Below) Other Cardiovascular History: enlarged heart. Respiratory History: Reports: Other (See Below) Other Respiratory History: He takes an inhaler but is unsure of specific lung problem. States he recently got the inhaler from Megan Navarro. Gastrointestinal History: Reports: GERD Neurological History: Reports: Concussion, Speech Problems, Other (See Below) Other Neuro History: concussion one year ago after slipping on ice and hitting head on concrete. Hx of cleft lip and palate, it is difficult to understand pt' s speech. Endocrine/Metabolic History: Reports: Obesity/BMI 30+, Other (See Below) - Infectious Disease History Infectious Disease History: Reports: Chicken Pox, Measles, Mumps - Past Surgical History HEENT Surgical History: Reports: Oral Surgery, Other (See Below) Other HEENT Surgeries/Procedures: Surgery for cleft lip/palate. Surgery to right ear can't remember what it was called. Cardiovascular Surgical History: Reports: None Respiratory Surgical History: Reports: None GI Surgical History: Reports: None Endocrine Surgical History: Reports: None Neurological Surgical History: Reports: None Social & Family History - Family History Family Medical History: Unobtainable (pt intubated and sedated) - Tobacco Use Smoking Status *Q: Never Smoker Second Hand Smoke Exposure: No - Caffeine Use Caffeine Use: Reports: Soda - Recreational Drug Use Recreational Drug Use: No Drug Use in Last 12 Months: No Recreational Drug Type: Reports: Marijuana/Hashish (last smoked early ) - Living Situation & Occupation Living situation: Reports: , Alone 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) H&P Review of Systems - Review of Systems: Review Of Systems: Unable To Obtain Reason Not Obtained: pt intubated and sedated Exam - Exam Exam: See Below - Vital Signs Vital Signs: Last Vital Signs Temp 36.8 C 11/16/19 00:00 Pulse 47 L 11/16/19 04:00 Resp 15 11/16/19 04:00 BP 125/78 11/16/19 04:00 Pulse Ox 89 L 11/16/19 04:00 Weight: 118.206 kg - Exam Quality Assessment: Supplemental Oxygen General: Other (sedated) HEENT: Other (ETT in place) Lungs: Other (pt intubated) Cardiovascular: Regular Rhythm, Bradycardia Extremities: Normal Inspection Skin: Warm, Dry, Intact Neurological: Other (unable to assess) - Patient Data Lab Results Last 24 hrs: Laboratory Results - last 24 hr 11/15/19 11/15/19 11/15/19 Range/Units 05:12 05:12 06:06 WBC 16.47 H (4.23-9.07) K/mm3 RBC 6.49 H (4.63-6.08) M/mm3 Hgb 16.7 (13.7-17.5) gm/dl Hct 54.8 H (40.1-51.0) % MCV 84.4 (79.0-92.2) fl MCH 25.7 (25.7-32.2) pg MCHC 30.5 L (32.2-35.5) g/dl RDW Std Deviation 51.2 H (35.1-43.9) fL Plt Count 208 (163-337) K/mm3 MPV 11.3 (9.4-12.3) fl Neut % (Auto) 94.7 H (34.0-67.9) % Lymph % (Auto) 1.9 L (21.8-53.1) % Burt % (Auto) 3.2 L (5.3-12.2) % Eos % (Auto) 0 L (0.8-7.0) Baso % (Auto) 0.0 L (0.1-1.2) % Neut # (Auto) 15.58 H (1.78-5.38) K/mm3 Lymph # (Auto) 0.32 L (1.32-3.57) K/mm3 Burt # (Auto) 0.53 (0.30-0.82) K/mm3 Eos # (Auto) 0.00 L (0.04-0.54) K/mm3 Baso # (Auto) 0.00 L (0.01-0.08) K/mm3 Manual Slide Review Abnormal smear Puncture Site ABG pH (7.35-7.45) ABG pCO2 (35.0-45.0) mmHg ABG pO2 (80.0-100.0) mmHg ABG HCO3 (22.0-26.0) meq/L ABG O2 Saturation (96.0-97.0) % ABG Base Excess (-2-2.0) A-a Gradient mmHg O2 Delivery Device FiO2 (21.00-100.00) % Tidal Volume cc PEEP cmH20 Sodium 148 H (136-145) mEq/L Potassium 3.3 L (3.5-5.1) mEq/L Chloride 107 (98-107) mEq/L Carbon Dioxide 37 H (21-32) mEq/L Anion Gap 7.3 (5-15) BUN 33 H (7-18) mg/dL Creatinine 1.4 H (0.7-1.3) mg/dL Est Cr Clr Drug Dosing 50.00 mL/min Estimated GFR (MDRD) 52 (>60) mL/min BUN/Creatinine Ratio 23.6 H (14-18) Glucose 129 H (80-115) mg/dL POC Glucose 77 L (80-115) mg/dL Calcium 8.4 L (8.5-10.1) mg/dL Phosphorus (2.6-4.7) mg/dL Magnesium 2.3 (1.8-2.4) mg/dl Total Bilirubin 0.9 (0.2-1.0) mg/dL AST 97 H (15-37) U/L ALT 39 (16-63) U/L Alkaline Phosphatase 70 (46-116) U/L Troponin I (0.00-0.056) ng/mL NT-Pro-B Natriuret Pep (0-125) pg/mL Total Protein 6.6 (6.4-8.2) g/dl Albumin 2.5 L (3.4-5.0) g/dl Globulin 4.1 gm/dL Albumin/Globulin Ratio 0.6 L (1-2) 11/15/19 11/15/19 11/15/19 Range/Units 07:55 12:47 17:20 WBC (4.23-9.07) K/mm3 RBC (4.63-6.08) M/mm3 Hgb (13.7-17.5) gm/dl Hct (40.1-51.0) % MCV (79.0-92.2) fl MCH (25.7-32.2) pg MCHC (32.2-35.5) g/dl RDW Std Deviation (35.1-43.9) fL Plt Count (163-337) K/mm3 MPV (9.4-12.3) fl Neut % (Auto) (34.0-67.9) % Lymph % (Auto) (21.8-53.1) % Burt % (Auto) (5.3-12.2) % Eos % (Auto) (0.8-7.0) Baso % (Auto) (0.1-1.2) % Neut # (Auto) (1.78-5.38) K/mm3 Lymph # (Auto) (1.32-3.57) K/mm3 Burt # (Auto) (0.30-0.82) K/mm3 Eos # (Auto) (0.04-0.54) K/mm3 Baso # (Auto) (0.01-0.08) K/mm3 Manual Slide Review Puncture Site Rt radial ABG pH 7.45 (7.35-7.45) ABG pCO2 58.9 H (35.0-45.0) mmHg ABG pO2 70.0 L (80.0-100.0) mmHg ABG HCO3 40.3 H (22.0-26.0) meq/L ABG O2 Saturation 91.9 L (96.0-97.0) % ABG Base Excess 13.1 H (-2-2.0) A-a Gradient 250 mmHg O2 Delivery Device Ventilator FiO2 55.00 (21.00-100.00) % Tidal Volume 400.0 cc PEEP 10.0 cmH20 Sodium (136-145) mEq/L Potassium (3.5-5.1) mEq/L Chloride (98-107) mEq/L Carbon Dioxide (21-32) mEq/L Anion Gap (5-15) BUN (7-18) mg/dL Creatinine (0.7-1.3) mg/dL Est Cr Clr Drug Dosing mL/min Estimated GFR (MDRD) (>60) mL/min BUN/Creatinine Ratio (14-18) Glucose (80-115) mg/dL POC Glucose 122 H 125 H (80-115) mg/dL Calcium (8.5-10.1) mg/dL Phosphorus (2.6-4.7) mg/dL Magnesium (1.8-2.4) mg/dl Total Bilirubin (0.2-1.0) mg/dL AST (15-37) U/L ALT (16-63) U/L Alkaline Phosphatase (46-116) U/L Troponin I (0.00-0.056) ng/mL NT-Pro-B Natriuret Pep (0-125) pg/mL Total Protein (6.4-8.2) g/dl Albumin (3.4-5.0) g/dl Globulin gm/dL Albumin/Globulin Ratio (1-2) 11/15/19 11/16/19 11/16/19 Range/Units 22:03 00:10 01:40 WBC 14.80 H (4.23-9.07) K/mm3 RBC 6.51 H (4.63-6.08) M/mm3 Hgb 16.7 (13.7-17.5) gm/dl Hct 55.0 H (40.1-51.0) % MCV 84.5 (79.0-92.2) fl MCH 25.7 (25.7-32.2) pg MCHC 30.4 L (32.2-35.5) g/dl RDW Std Deviation 51.4 H (35.1-43.9) fL Plt Count 196 (163-337) K/mm3 MPV 10.6 (9.4-12.3) fl Neut % (Auto) 89.1 H (34.0-67.9) % Lymph % (Auto) 5.9 L (21.8-53.1) % Burt % (Auto) 4.8 L (5.3-12.2) % Eos % (Auto) 0 L (0.8-7.0) Baso % (Auto) 0.0 L (0.1-1.2) % Neut # (Auto) 13.18 H (1.78-5.38) K/mm3 Lymph # (Auto) 0.88 L (1.32-3.57) K/mm3 Burt # (Auto) 0.71 (0.30-0.82) K/mm3 Eos # (Auto) 0.00 L (0.04-0.54) K/mm3 Baso # (Auto) 0.00 L (0.01-0.08) K/mm3 Manual Slide Review Abnormal smear Puncture Site ABG pH (7.35-7.45) ABG pCO2 (35.0-45.0) mmHg ABG pO2 (80.0-100.0) mmHg ABG HCO3 (22.0-26.0) meq/L ABG O2 Saturation (96.0-97.0) % ABG Base Excess (-2-2.0) A-a Gradient mmHg O2 Delivery Device FiO2 (21.00-100.00) % Tidal Volume cc PEEP cmH20 Sodium (136-145) mEq/L Potassium (3.5-5.1) mEq/L Chloride (98-107) mEq/L Carbon Dioxide (21-32) mEq/L Anion Gap (5-15) BUN (7-18) mg/dL Creatinine (0.7-1.3) mg/dL Est Cr Clr Drug Dosing mL/min Estimated GFR (MDRD) (>60) mL/min BUN/Creatinine Ratio (14-18) Glucose (80-115) mg/dL POC Glucose 104 126 H (80-115) mg/dL Calcium (8.5-10.1) mg/dL Phosphorus (2.6-4.7) mg/dL Magnesium (1.8-2.4) mg/dl Total Bilirubin (0.2-1.0) mg/dL AST (15-37) U/L ALT (16-63) U/L Alkaline Phosphatase (46-116) U/L Troponin I (0.00-0.056) ng/mL NT-Pro-B Natriuret Pep (0-125) pg/mL Total Protein (6.4-8.2) g/dl Albumin (3.4-5.0) g/dl Globulin gm/dL Albumin/Globulin Ratio (1-2) 11/16/19 11/16/19 11/16/19 Range/Units 01:40 01:40 01:40 WBC (4.23-9.07) K/mm3 RBC (4.63-6.08) M/mm3 Hgb (13.7-17.5) gm/dl Hct (40.1-51.0) % MCV (79.0-92.2) fl MCH (25.7-32.2) pg MCHC (32.2-35.5) g/dl RDW Std Deviation (35.1-43.9) fL Plt Count (163-337) K/mm3 MPV (9.4-12.3) fl Neut % (Auto) (34.0-67.9) % Lymph % (Auto) (21.8-53.1) % Burt % (Auto) (5.3-12.2) % Eos % (Auto) (0.8-7.0) Baso % (Auto) (0.1-1.2) % Neut # (Auto) (1.78-5.38) K/mm3 Lymph # (Auto) (1.32-3.57) K/mm3 Burt # (Auto) (0.30-0.82) K/mm3 Eos # (Auto) (0.04-0.54) K/mm3 Baso # (Auto) (0.01-0.08) K/mm3 Manual Slide Review Puncture Site Rt radial ABG pH 7.44 (7.35-7.45) ABG pCO2 62.6 H (35.0-45.0) mmHg ABG pO2 67.0 L (80.0-100.0) mmHg ABG HCO3 42.1 H (22.0-26.0) meq/L ABG O2 Saturation 90.3 L (96.0-97.0) % ABG Base Excess 14.2 H (-2-2.0) A-a Gradient 570 mmHg O2 Delivery Device Ventilator FiO2 100.00 (21.00-100.00) % Tidal Volume 400.0 cc PEEP 15.0 cmH20 Sodium 147 H (136-145) mEq/L Potassium 3.3 L (3.5-5.1) mEq/L Chloride 105 (98-107) mEq/L Carbon Dioxide 39 H (21-32) mEq/L Anion Gap 6.3 (5-15) BUN 35 H (7-18) mg/dL Creatinine 1.5 H (0.7-1.3) mg/dL Est Cr Clr Drug Dosing 46.91 mL/min Estimated GFR (MDRD) 48 (>60) mL/min BUN/Creatinine Ratio 23.3 H (14-18) Glucose 138 H (80-115) mg/dL POC Glucose (80-115) mg/dL Calcium 8.5 (8.5-10.1) mg/dL Phosphorus 3.2 (2.6-4.7) mg/dL Magnesium 2.2 (1.8-2.4) mg/dl Total Bilirubin 0.9 (0.2-1.0) mg/dL AST 97 H (15-37) U/L ALT 43 (16-63) U/L Alkaline Phosphatase 65 (46-116) U/L Troponin I 0.080 H* (0.00-0.056) ng/mL NT-Pro-B Natriuret Pep 333 H (0-125) pg/mL Total Protein 6.5 (6.4-8.2) g/dl Albumin 2.4 L (3.4-5.0) g/dl Globulin 4.1 gm/dL Albumin/Globulin Ratio 0.6 L (1-2) 11/16/19 Range/Units 02:15 WBC (4.23-9.07) K/mm3 RBC (4.63-6.08) M/mm3 Hgb (13.7-17.5) gm/dl Hct (40.1-51.0) % MCV (79.0-92.2) fl MCH (25.7-32.2) pg MCHC (32.2-35.5) g/dl RDW Std Deviation (35.1-43.9) fL Plt Count (163-337) K/mm3 MPV (9.4-12.3) fl Neut % (Auto) (34.0-67.9) % Lymph % (Auto) (21.8-53.1) % Burt % (Auto) (5.3-12.2) % Eos % (Auto) (0.8-7.0) Baso % (Auto) (0.1-1.2) % Neut # (Auto) (1.78-5.38) K/mm3 Lymph # (Auto) (1.32-3.57) K/mm3 Burt # (Auto) (0.30-0.82) K/mm3 Eos # (Auto) (0.04-0.54) K/mm3 Baso # (Auto) (0.01-0.08) K/mm3 Manual Slide Review Puncture Site Rt radial ABG pH 7.47 H (7.35-7.45) ABG pCO2 57.8 H (35.0-45.0) mmHg ABG pO2 66.0 L (80.0-100.0) mmHg ABG HCO3 41.1 H (22.0-26.0) meq/L ABG O2 Saturation 92.5 L (96.0-97.0) % ABG Base Excess 13.9 H (-2-2.0) A-a Gradient 577 mmHg O2 Delivery Device Ventilator FiO2 100.00 (21.00-100.00) % Tidal Volume 500.0 cc PEEP 15.0 cmH20 Sodium (136-145) mEq/L Potassium (3.5-5.1) mEq/L Chloride (98-107) mEq/L Carbon Dioxide (21-32) mEq/L Anion Gap (5-15) BUN (7-18) mg/dL Creatinine (0.7-1.3) mg/dL Est Cr Clr Drug Dosing mL/min Estimated GFR (MDRD) (>60) mL/min BUN/Creatinine Ratio (14-18) Glucose (80-115) mg/dL POC Glucose (80-115) mg/dL Calcium (8.5-10.1) mg/dL Phosphorus (2.6-4.7) mg/dL Magnesium (1.8-2.4) mg/dl Total Bilirubin (0.2-1.0) mg/dL AST (15-37) U/L ALT (16-63) U/L Alkaline Phosphatase (46-116) U/L Troponin I (0.00-0.056) ng/mL NT-Pro-B Natriuret Pep (0-125) pg/mL Total Protein (6.4-8.2) g/dl Albumin (3.4-5.0) g/dl Globulin gm/dL Albumin/Globulin Ratio (1-2) Result Diagrams: 11/16/19 01:40 11/16/19 01:40 Darryl Results Last 24 hrs: Microbiology 11/11/19 23:56 Aerobic Blood Culture - Preliminary Blood - Venous - Lab Draw NO GROWTH AFTER 4 DAYS Anaerobic Blood Culture - Preliminary NO GROWTH AFTER 4 DAYS 11/11/19 23:40 Aerobic Blood Culture - Preliminary Blood - Venous NO GROWTH AFTER 4 DAYS Anaerobic Blood Culture - Preliminary NO GROWTH AFTER 4 DAYS Sepsis Event Note - Evaluation Sepsis Screening Result: No Definite Risk - Focused Exam Vital Signs: Vital Signs Temp Pulse Resp BP BP Pulse Ox Pulse Ox 11/16/19 04:00 47 L 15 125/78 89 L 11/16/19 03:26 15 120/73 91 L 11/16/19 03:25 15 91 L 11/16/19 03:24 15 121/73 91 L 11/16/19 03:23 15 91 L 11/16/19 03:22 15 119/71 91 L 11/16/19 03:21 15 91 L 11/16/19 03:20 15 120/75 91 L 11/16/19 03:19 15 91 L 11/16/19 03:18 15 119/72 91 L 11/16/19 03:17 15 91 L 11/16/19 03:16 15 119/73 91 L 11/16/19 03:15 15 92 L 11/16/19 03:14 15 119/71 92 L 11/16/19 03:13 15 92 L 11/16/19 03:12 15 119/71 92 L 11/16/19 03:11 15 92 L 11/16/19 03:10 15 119/73 92 L 11/16/19 03:09 15 92 L 11/16/19 03:07 15 122/73 92 L 11/16/19 03:06 15 92 L 11/16/19 03:05 15 122/78 91 L 11/16/19 03:04 15 92 L 11/16/19 03:01 15 92 L 11/16/19 03:00 15 118/72 92 L 11/16/19 02:59 15 92 L 11/16/19 02:45 15 92 L 11/16/19 02:30 15 92 L 11/16/19 02:23 15 92 L 11/16/19 02:15 15 91 L 11/16/19 02:01 15 89 L 11/16/19 02:00 15 102/62 90 L 11/16/19 01:59 15 90 L 11/16/19 01:45 15 89 L 11/16/19 01:30 15 87 L 11/16/19 01:25 15 114/68 87 L 11/16/19 01:24 15 86 L 11/16/19 01:15 16 87 L 11/16/19 01:05 83 L 11/16/19 01:01 15 105/64 85 L 11/16/19 01:00 20 87 L 11/16/19 00:45 15 89 L 11/16/19 00:36 87 L 11/16/19 00:30 14 88 L 11/16/19 00:24 15 91 L 11/16/19 00:15 15 91 L 11/16/19 00:01 15 91 L 11/16/19 00:00 36.8 C 55 L 15 120/76 120/76 89 L 11/15/19 23:59 15 91 L 11/15/19 23:45 15 91 L 11/15/19 23:30 15 91 L 11/15/19 23:15 15 92 L 11/15/19 23:01 15 118/74 92 L 11/15/19 23:00 15 88 L 11/15/19 22:55 15 91 L 11/15/19 22:45 15 91 L 11/15/19 22:38 15 91 L 11/15/19 22:31 15 116/72 91 L 11/15/19 22:30 15 89 L 11/15/19 22:15 15 91 L 11/15/19 22:01 15 117/71 91 L 11/15/19 22:00 15 89 L 11/15/19 21:45 15 91 L 11/15/19 21:31 15 114/62 90 L 02/14/20 21:30 15 88 L 11/15/19 21:16 15 114/62 90 L 11/15/19 21:15 15 90 L 11/15/19 21:01 15 116/65 90 L 11/15/19 21:00 15 88 L 11/15/19 20:46 15 111/59 L 90 L 11/15/19 20:45 15 89 L 11/15/19 20:40 15 113/60 89 L 11/15/19 20:39 15 90 L 11/15/19 20:30 15 90 L 11/15/19 20:15 16 90 L 91 L 11/15/19 20:01 15 90 L 11/15/19 20:00 37.3 C 63 15 111/62 114/62 91 L 11/15/19 19:59 15 89 L 11/15/19 19:45 15 91 L 11/15/19 19:30 15 91 L 11/15/19 19:15 15 92 L 11/15/19 19:01 15 92 L 11/15/19 19:00 15 106/57 L 92 L 11/15/19 18:59 15 91 L 11/15/19 18:45 15 92 L 11/15/19 18:30 15 92 L 11/15/19 18:15 19 89 L 11/15/19 18:01 16 89 L 11/15/19 18:00 15 104/59 L 87 L 11/15/19 17:59 15 91 L 11/15/19 17:50 91 L 11/15/19 17:45 15 91 L 11/15/19 17:30 15 91 L Date Exam was Performed: 11/16/19 Time Exam was Performed: 05:29 Consult PN Assessment/Plan Procedures: Procedures ASSAY OF TROPONIN QUANT (03/01/19) COMPLETE CBC W/AUTO DIFF WBC (03/01/19) COMPREHEN METABOLIC PANEL (03/01/19) ELECTROCARDIOGRAM TRACING (03/01/19) EMERGENCY DEPT VISIT (03/01/19) METABOLIC PANEL TOTAL CA (03/05/19) ROUTINE VENIPUNCTURE (03/05/19) X-RAY EXAM CHEST 1 VIEW (03/01/19) (1) Bilateral pleural effusion SNOMED Code(s): 108778980 Code(s): J90 - PLEURAL EFFUSION, NOT ELSEWHERE CLASSIFIED Current Visit: Yes (2) CHF (congestive heart failure) SNOMED Code(s): 52155756 Code(s): I50.9 - HEART FAILURE, UNSPECIFIED Current Visit: Yes Problem List Initiated/Reviewed/Updated: Yes Plan: 59 y/o male with bilateral pleural effusions affecting his respiratory status, not responsive to medical treatments - plan for bilateral chest tube placement - consent obtained from daughter over the phone - will monitor for improvement of respiratory status - will need continued medical management for his fluid shifts Aura Duque MD General surgery
[2019-11-16] MEDS: Albuterol/Ipratropium 3.0-0.5 MG/3 ML Neb Soln NEB SCH ×4 (05:36→20:23)
--- NOTE | 2019-11-16 05:51 | PCM.PRNOTE ---
- Free Text/Narrative Note: Date: November 16, 2019 Pre-procedure diagnosis: Bilateral pleural effusions with difficulty ventilating the patient Post-procedure diagnosis: Same Procedure: Placement of bilateral tube thoracostomies Surgeon: Aura Duque MD Anesthesia: 1% lidocaine Estimated blood loss: 20mL Indication: Patient is a 59-year-old gentleman who was admitted and in the ICU at the time of consultation. He had an acute during his respiratory status with difficulty maintaining his oxygenation. Increased PEEP and FiO2 were attempted as well as Lasix to improve his fluid status. He had a chest x-ray obtained which showed bilateral pleural effusions. The patient's was consented for placement of bilateral chest tubes improvement in his respiratory status. Description of the procedure: A time-out was completed verifying correct patient, procedure, and site. The patient was positioned appropriately for chest tube placement. The patients bilateral chest was prepped and draped in sterile fashion. The right side was addressed first. 1% Lidocaine was used to anesthetize the surrounding skin area. A 2 cm skin incision was made in the mid-axillary line at the level of the nipple. Utilizing blunt dissection a subcutaneous tunnel was created cephalad just superior the palpated rib. The pleural space was entered bluntly and gush of fluid was observed. A finger was inserted into the pleural space to check for anatomy and guide tube insertion. A 28 F thoracostomy tube was inserted using a clamp and positioned appropriately. There was some difficulty in advancing the chest tube. The tube was removed and reinserted in order to facilitate appropriate placement. The tube was measured at approximately 10 cm within the chest. The chest tube was sutured securely to the skin and a sterile dressing applied. A pleurevac was attached to the chest tube. The left side was then addressed. 1% Lidocaine was used to anesthetize the surrounding skin area. A 2 cm skin incision was made in the mid-axillary line at the level of the nipple. Utilizing blunt dissection a subcutaneous tunnel was created cephalad just superior to the palpated rib. The pleural space was entered bluntly and there as well as a gush of fluid was observed. A finger was inserted into the pleural space to check for anatomy and guide tube insertion. A 28 F thoracostomy tube was inserted using a clamp and positioned appropriately. The tube was noted at approximately 16 to 18 cm within the chest. The chest tube was sutured securely to the skin and a sterile dressing applied. A pleurevac was attached to the chest tube. The patient tolerated the procedure well and there were no complications noted. Chest x-ray was obtained with satisfactory placement of bilateral chest tubes. A sample of the pleural fluid was aspirated from the tubing and sent for culture and Gram stain. Aura Duque MD General Surgery
[2019-11-16] MEDS: Potassium Chloride 10 MEQ in Premix Bag 1 BAG IV SCH ×6 (06:00→13:07)
[2019-11-16] MEDS: Metoclopramide 10 MG/2 ML SDV IVPUSH SCH ×4 (06:04→22:24)
[2019-11-16] MEDS: fentaNYL 2,500 MCG in Sodium Chloride 0.9% 200 ML IV SCH ×2 (06:13→15:04)
[2019-11-16] MEDS: Insulin Lispro 100 Units/ML 3 ML Vial SUBCUT SCH ×4 (07:17→22:23)
[2019-11-16] MEDS: Furosemide 40 MG/4 ML VIAL IVPUSH SCH ×2 (09:22→20:17)
[2019-11-16] MEDS: Pantoprazole 40 MG Vial IVPUSH SCH ×2 (09:22→20:18)
[2019-11-16] MEDS: methylPREDNISolone Sodium Succinate 40 MG/1 ML SDV IVPUSH SCH ×3 (09:22→22:25)
[2019-11-16] MEDS ORDERED: D5 1/2 NS w/ 20 mEq/L KCl 1,000 ML IV SCH (11:45)
--- NOTE | 2019-11-16 15:15 | PCM.PN ---
- General Info Date of Service: 11/16/19 Admission Dx/Problem (Free Text): Admission Diagnosis/Problem Admission Diagnosis/Problem Pulmonary hypertension Subjective Update: Patient had worsening oxygenation overnight requiring increasing FiO2 and PEEP. Chest x-ray showed bilateral pleural effusions and chest tubes were placed. Since then patient has had improvement in oxygenation with a decrease in FiO2, but we have maintained a higher PEEP to help lung recruitment following the pleural effusions. Functional Status: Reports: Other (Intubated and sedated) - Patient Data Vitals - Most Recent: Last Vital Signs Temp 98.4 F 11/16/19 11:02 Pulse 63 11/16/19 11:02 Resp 15 11/16/19 12:01 BP 126/88 11/16/19 12:00 Pulse Ox 96 11/16/19 13:34 Weight - Most Recent: 260 lb 9.6 oz I&O - Last 24 Hours: Intake & Output 11/16/19 11/16/19 11/16/19 06:59 14:59 22:59 Intake Total 1399 75 Output Total 1475 1250 Balance -76 -1175 Lab Results Last 24 Hours: Laboratory Results - last 24 hr 11/15/19 11/15/19 11/15/19 Range/Units 12:47 17:20 22:03 WBC (4.23-9.07) K/mm3 RBC (4.63-6.08) M/mm3 Hgb (13.7-17.5) gm/dl Hct (40.1-51.0) % MCV (79.0-92.2) fl MCH (25.7-32.2) pg MCHC (32.2-35.5) g/dl RDW Std Deviation (35.1-43.9) fL Plt Count (163-337) K/mm3 MPV (9.4-12.3) fl Neut % (Auto) (34.0-67.9) % Lymph % (Auto) (21.8-53.1) % [place] % (Auto) (5.3-12.2) % Eos % (Auto) (0.8-7.0) Baso % (Auto) (0.1-1.2) % Neut # (Auto) (1.78-5.38) K/mm3 Lymph # (Auto) (1.32-3.57) K/mm3 [place] # (Auto) (0.30-0.82) K/mm3 Eos # (Auto) (0.04-0.54) K/mm3 Baso # (Auto) (0.01-0.08) K/mm3 Manual Slide Review Puncture Site ABG pH (7.35-7.45) ABG pCO2 (35.0-45.0) mmHg ABG pO2 (80.0-100.0) mmHg ABG HCO3 (22.0-26.0) meq/L ABG O2 Saturation (96.0-97.0) % ABG Base Excess (-2-2.0) Chin Test A-a Gradient mmHg O2 Delivery Device FiO2 (21.00-100.00) % Tidal Volume cc PEEP cmH20 Sodium (136-145) mEq/L Potassium (3.5-5.1) mEq/L Chloride (98-107) mEq/L Carbon Dioxide (21-32) mEq/L Anion Gap (5-15) BUN (7-18) mg/dL Creatinine (0.7-1.3) mg/dL Est Cr Clr Drug Dosing mL/min Estimated GFR (MDRD) (>60) mL/min BUN/Creatinine Ratio (14-18) Glucose (80-115) mg/dL POC Glucose 122 H 125 H 104 (80-115) mg/dL Calcium (8.5-10.1) mg/dL Phosphorus (2.6-4.7) mg/dL Magnesium (1.8-2.4) mg/dl Total Bilirubin (0.2-1.0) mg/dL AST (15-37) U/L ALT (16-63) U/L Alkaline Phosphatase (46-116) U/L Lactate Dehydrogenase (85-227) U/L Troponin I (0.00-0.056) ng/mL NT-Pro-B Natriuret Pep (0-125) pg/mL Total Protein (6.4-8.2) g/dl Albumin (3.4-5.0) g/dl Globulin gm/dL Albumin/Globulin Ratio (1-2) Body Fluid Site Fluid Type Fluid Volume ML Fluid Color Fluid Appearance Fluid pH (4.5-10.0) Fluid WBC (0.20-0.60) k/mm*3 Fluid RBC (0.00-0.010) 10*6/uL Fluid Diff Comment Fluid Seg Neutrophils (0-25) % Fluid Lymphocytes (0-78) % Fl Polymorphonucl Cell Fluid Glucose mg/dL Fluid Total Protein gm/dl Fluid Albumin Fluid LDH U/L 11/16/19 11/16/19 11/16/19 Range/Units 00:10 01:40 01:40 WBC 14.80 H (4.23-9.07) K/mm3 RBC 6.51 H (4.63-6.08) M/mm3 Hgb 16.7 (13.7-17.5) gm/dl Hct 55.0 H (40.1-51.0) % MCV 84.5 (79.0-92.2) fl MCH 25.7 (25.7-32.2) pg MCHC 30.4 L (32.2-35.5) g/dl RDW Std Deviation 51.4 H (35.1-43.9) fL Plt Count 196 (163-337) K/mm3 MPV 10.6 (9.4-12.3) fl Neut % (Auto) 89.1 H (34.0-67.9) % Lymph % (Auto) 5.9 L (21.8-53.1) % [place] % (Auto) 4.8 L (5.3-12.2) % Eos % (Auto) 0 L (0.8-7.0) Baso % (Auto) 0.0 L (0.1-1.2) % Neut # (Auto) 13.18 H (1.78-5.38) K/mm3 Lymph # (Auto) 0.88 L (1.32-3.57) K/mm3 [place] # (Auto) 0.71 (0.30-0.82) K/mm3 Eos # (Auto) 0.00 L (0.04-0.54) K/mm3 Baso # (Auto) 0.00 L (0.01-0.08) K/mm3 Manual Slide Review Abnormal smear Puncture Site ABG pH (7.35-7.45) ABG pCO2 (35.0-45.0) mmHg ABG pO2 (80.0-100.0) mmHg ABG HCO3 (22.0-26.0) meq/L ABG O2 Saturation (96.0-97.0) % ABG Base Excess (-2-2.0) Chin Test A-a Gradient mmHg O2 Delivery Device FiO2 (21.00-100.00) % Tidal Volume cc PEEP cmH20 Sodium 147 H (136-145) mEq/L Potassium 3.3 L (3.5-5.1) mEq/L Chloride 105 (98-107) mEq/L Carbon Dioxide 39 H (21-32) mEq/L Anion Gap 6.3 (5-15) BUN 35 H (7-18) mg/dL Creatinine 1.5 H (0.7-1.3) mg/dL Est Cr Clr Drug Dosing 46.91 mL/min Estimated GFR (MDRD) 48 (>60) mL/min BUN/Creatinine Ratio 23.3 H (14-18) Glucose 138 H (80-115) mg/dL POC Glucose 126 H (80-115) mg/dL Calcium 8.5 (8.5-10.1) mg/dL Phosphorus 3.2 (2.6-4.7) mg/dL Magnesium 2.2 (1.8-2.4) mg/dl Total Bilirubin 0.9 (0.2-1.0) mg/dL AST 97 H (15-37) U/L ALT 43 (16-63) U/L Alkaline Phosphatase 65 (46-116) U/L Lactate Dehydrogenase (85-227) U/L Troponin I 0.080 H* (0.00-0.056) ng/mL NT-Pro-B Natriuret Pep (0-125) pg/mL Total Protein 6.5 (6.4-8.2) g/dl Albumin 2.4 L (3.4-5.0) g/dl Globulin 4.1 gm/dL Albumin/Globulin Ratio 0.6 L (1-2) Body Fluid Site Fluid Type Fluid Volume ML Fluid Color Fluid Appearance Fluid pH (4.5-10.0) Fluid WBC (0.20-0.60) k/mm*3 Fluid RBC (0.00-0.010) 10*6/uL Fluid Diff Comment Fluid Seg Neutrophils (0-25) % Fluid Lymphocytes (0-78) % Fl Polymorphonucl Cell Fluid Glucose mg/dL Fluid Total Protein gm/dl Fluid Albumin Fluid LDH U/L 02/11/16/19 11/16/19 Range/Units 01:40 01:40 02:15 WBC (4.23-9.07) K/mm3 RBC (4.63-6.08) M/mm3 Hgb (13.7-17.5) gm/dl Hct (40.1-51.0) % MCV (79.0-92.2) fl MCH (25.7-32.2) pg MCHC (32.2-35.5) g/dl RDW Std Deviation (35.1-43.9) fL Plt Count (163-337) K/mm3 MPV (9.4-12.3) fl Neut % (Auto) (34.0-67.9) % Lymph % (Auto) (21.8-53.1) % [place] % (Auto) (5.3-12.2) % Eos % (Auto) (0.8-7.0) Baso % (Auto) (0.1-1.2) % Neut # (Auto) (1.78-5.38) K/mm3 Lymph # (Auto) (1.32-3.57) K/mm3 [place] # (Auto) (0.30-0.82) K/mm3 Eos # (Auto) (0.04-0.54) K/mm3 Baso # (Auto) (0.01-0.08) K/mm3 Manual Slide Review Puncture Site Rt radial Rt radial ABG pH 7.44 7.47 H (7.35-7.45) ABG pCO2 62.6 H 57.8 H (35.0-45.0) mmHg ABG pO2 67.0 L 66.0 L (80.0-100.0) mmHg ABG HCO3 42.1 H 41.1 H (22.0-26.0) meq/L ABG O2 Saturation 90.3 L 92.5 L (96.0-97.0) % ABG Base Excess 14.2 H 13.9 H (-2-2.0) Chin Test A-a Gradient 570 577 mmHg O2 Delivery Device Ventilator Ventilator FiO2 100.00 100.00 (21.00-100.00) % Tidal Volume 400.0 500.0 cc PEEP 15.0 15.0 cmH20 Sodium (136-145) mEq/L Potassium (3.5-5.1) mEq/L Chloride (98-107) mEq/L Carbon Dioxide (21-32) mEq/L Anion Gap (5-15) BUN (7-18) mg/dL Creatinine (0.7-1.3) mg/dL Est Cr Clr Drug Dosing mL/min Estimated GFR (MDRD) (>60) mL/min BUN/Creatinine Ratio (14-18) Glucose (80-115) mg/dL POC Glucose (80-115) mg/dL Calcium (8.5-10.1) mg/dL Phosphorus (2.6-4.7) mg/dL Magnesium (1.8-2.4) mg/dl Total Bilirubin (0.2-1.0) mg/dL AST (15-37) U/L ALT (16-63) U/L Alkaline Phosphatase (46-116) U/L Lactate Dehydrogenase (85-227) U/L Troponin I (0.00-0.056) ng/mL NT-Pro-B Natriuret Pep 333 H (0-125) pg/mL Total Protein (6.4-8.2) g/dl Albumin (3.4-5.0) g/dl Globulin gm/dL Albumin/Globulin Ratio (1-2) Body Fluid Site Fluid Type Fluid Volume ML Fluid Color Fluid Appearance Fluid pH (4.5-10.0) Fluid WBC (0.20-0.60) k/mm*3 Fluid RBC (0.00-0.010) 10*6/uL Fluid Diff Comment Fluid Seg Neutrophils (0-25) % Fluid Lymphocytes (0-78) % Fl Polymorphonucl Cell Fluid Glucose mg/dL Fluid Total Protein gm/dl Fluid Albumin Fluid LDH U/L 11/16/19 11/16/19 11/16/19 Range/Units 05:28 05:45 06:08 WBC (4.23-9.07) K/mm3 RBC (4.63-6.08) M/mm3 Hgb (13.7-17.5) gm/dl Hct (40.1-51.0) % MCV (79.0-92.2) fl MCH (25.7-32.2) pg MCHC (32.2-35.5) g/dl RDW Std Deviation (35.1-43.9) fL Plt Count (163-337) K/mm3 MPV (9.4-12.3) fl Neut % (Auto) (34.0-67.9) % Lymph % (Auto) (21.8-53.1) % [place] % (Auto) (5.3-12.2) % Eos % (Auto) (0.8-7.0) Baso % (Auto) (0.1-1.2) % Neut # (Auto) (1.78-5.38) K/mm3 Lymph # (Auto) (1.32-3.57) K/mm3 [place] # (Auto) (0.30-0.82) K/mm3 Eos # (Auto) (0.04-0.54) K/mm3 Baso # (Auto) (0.01-0.08) K/mm3 Manual Slide Review Puncture Site Rt radial ABG pH 7.50 H (7.35-7.45) ABG pCO2 53.2 H (35.0-45.0) mmHg ABG pO2 63.0 L (80.0-100.0) mmHg ABG HCO3 40.6 H (22.0-26.0) meq/L ABG O2 Saturation 92.7 L (96.0-97.0) % ABG Base Excess 14.2 H (-2-2.0) Chin Test A-a Gradient 514 mmHg O2 Delivery Device Ventilator FiO2 90.00 (21.00-100.00) % Tidal Volume 500.0 cc PEEP 15.0 cmH20 Sodium 145 (136-145) mEq/L Potassium 3.2 L (3.5-5.1) mEq/L Chloride 102 (98-107) mEq/L Carbon Dioxide 37 H (21-32) mEq/L Anion Gap 9.2 (5-15) BUN 34 H (7-18) mg/dL Creatinine 1.4 H (0.7-1.3) mg/dL Est Cr Clr Drug Dosing 50.00 mL/min Estimated GFR (MDRD) 52 (>60) mL/min BUN/Creatinine Ratio 24.3 H (14-18) Glucose 140 H (80-115) mg/dL POC Glucose (80-115) mg/dL Calcium 9.0 (8.5-10.1) mg/dL Phosphorus (2.6-4.7) mg/dL Magnesium 2.4 (1.8-2.4) mg/dl Total Bilirubin 1.0 (0.2-1.0) mg/dL AST 100 H (15-37) U/L ALT 46 (16-63) U/L Alkaline Phosphatase 72 (46-116) U/L Lactate Dehydrogenase (85-227) U/L Troponin I (0.00-0.056) ng/mL NT-Pro-B Natriuret Pep (0-125) pg/mL Total Protein 7.1 (6.4-8.2) g/dl Albumin 2.6 L (3.4-5.0) g/dl Globulin 4.5 gm/dL Albumin/Globulin Ratio 0.6 L (1-2) Body Fluid Site Pleural Fluid Type Pleural fluid Fluid Volume 5 ML Fluid Color Red Fluid Appearance Cloudy Fluid pH 10 (4.5-10.0) Fluid WBC 0.15 L (0.20-0.60) k/mm*3 Fluid RBC 0.027 H (0.00-0.010) 10*6/uL Fluid Diff Comment See note Fluid Seg Neutrophils 2.0 (0-25) % Fluid Lymphocytes 1.0 (0-78) % Fl Polymorphonucl Cell Not Reportable Fluid Glucose 152 mg/dL Fluid Total Protein < 2.0 gm/dl Fluid Albumin Cancelled Fluid LDH 186 U/L 11/16/19 11/16/19 11/16/19 Range/Units 06:08 06:08 06:24 WBC (4.23-9.07) K/mm3 RBC (4.63-6.08) M/mm3 Hgb (13.7-17.5) gm/dl Hct (40.1-51.0) % MCV (79.0-92.2) fl MCH (25.7-32.2) pg MCHC (32.2-35.5) g/dl RDW Std Deviation (35.1-43.9) fL Plt Count (163-337) K/mm3 MPV (9.4-12.3) fl Neut % (Auto) (34.0-67.9) % Lymph % (Auto) (21.8-53.1) % [place] % (Auto) (5.3-12.2) % Eos % (Auto) (0.8-7.0) Baso % (Auto) (0.1-1.2) % Neut # (Auto) (1.78-5.38) K/mm3 Lymph # (Auto) (1.32-3.57) K/mm3 [place] # (Auto) (0.30-0.82) K/mm3 Eos # (Auto) (0.04-0.54) K/mm3 Baso # (Auto) (0.01-0.08) K/mm3 Manual Slide Review Puncture Site ABG pH (7.35-7.45) ABG pCO2 (35.0-45.0) mmHg ABG pO2 (80.0-100.0) mmHg ABG HCO3 (22.0-26.0) meq/L ABG O2 Saturation (96.0-97.0) % ABG Base Excess (-2-2.0) Chin Test A-a Gradient mmHg O2 Delivery Device FiO2 (21.00-100.00) % Tidal Volume cc PEEP cmH20 Sodium (136-145) mEq/L Potassium (3.5-5.1) mEq/L Chloride (98-107) mEq/L Carbon Dioxide (21-32) mEq/L Anion Gap (5-15) BUN (7-18) mg/dL Creatinine (0.7-1.3) mg/dL Est Cr Clr Drug Dosing mL/min Estimated GFR (MDRD) (>60) mL/min BUN/Creatinine Ratio (14-18) Glucose (80-115) mg/dL POC Glucose 119 H (80-115) mg/dL Calcium (8.5-10.1) mg/dL Phosphorus (2.6-4.7) mg/dL Magnesium (1.8-2.4) mg/dl Total Bilirubin (0.2-1.0) mg/dL AST (15-37) U/L ALT (16-63) U/L Alkaline Phosphatase (46-116) U/L Lactate Dehydrogenase 257 H (85-227) U/L Troponin I 0.046 (0.00-0.056) ng/mL NT-Pro-B Natriuret Pep (0-125) pg/mL Total Protein (6.4-8.2) g/dl Albumin (3.4-5.0) g/dl Globulin gm/dL Albumin/Globulin Ratio (1-2) Body Fluid Site Fluid Type Fluid Volume ML Fluid Color Fluid Appearance Fluid pH (4.5-10.0) Fluid WBC (0.20-0.60) k/mm*3 Fluid RBC (0.00-0.010) 10*6/uL Fluid Diff Comment Fluid Seg Neutrophils (0-25) % Fluid Lymphocytes (0-78) % Fl Polymorphonucl Cell Fluid Glucose mg/dL Fluid Total Protein gm/dl Fluid Albumin Fluid LDH U/L 11/16/19 11/16/19 Range/Units 11:11 13:35 WBC (4.23-9.07) K/mm3 RBC (4.63-6.08) M/mm3 Hgb (13.7-17.5) gm/dl Hct (40.1-51.0) % MCV (79.0-92.2) fl MCH (25.7-32.2) pg MCHC (32.2-35.5) g/dl RDW Std Deviation (35.1-43.9) fL Plt Count (163-337) K/mm3 MPV (9.4-12.3) fl Neut % (Auto) (34.0-67.9) % Lymph % (Auto) (21.8-53.1) % [place] % (Auto) (5.3-12.2) % Eos % (Auto) (0.8-7.0) Baso % (Auto) (0.1-1.2) % Neut # (Auto) (1.78-5.38) K/mm3 Lymph # (Auto) (1.32-3.57) K/mm3 [place] # (Auto) (0.30-0.82) K/mm3 Eos # (Auto) (0.04-0.54) K/mm3 Baso # (Auto) (0.01-0.08) K/mm3 Manual Slide Review Puncture Site Lt radial ABG pH 7.47 H (7.35-7.45) ABG pCO2 57.4 H (35.0-45.0) mmHg ABG pO2 70.0 L (80.0-100.0) mmHg ABG HCO3 41.3 H (22.0-26.0) meq/L ABG O2 Saturation 94.2 L (96.0-97.0) % ABG Base Excess 14.0 H (-2-2.0) Chin Test Positive A-a Gradient 215 mmHg O2 Delivery Device Ventilator FiO2 0.00 L (21.00-100.00) % Tidal Volume 450.0 cc PEEP 15.0 cmH20 Sodium (136-145) mEq/L Potassium (3.5-5.1) mEq/L Chloride (98-107) mEq/L Carbon Dioxide (21-32) mEq/L Anion Gap (5-15) BUN (7-18) mg/dL Creatinine (0.7-1.3) mg/dL Est Cr Clr Drug Dosing mL/min Estimated GFR (MDRD) (>60) mL/min BUN/Creatinine Ratio (14-18) Glucose (80-115) mg/dL POC Glucose 116 H (80-115) mg/dL Calcium (8.5-10.1) mg/dL Phosphorus (2.6-4.7) mg/dL Magnesium (1.8-2.4) mg/dl Total Bilirubin (0.2-1.0) mg/dL AST (15-37) U/L ALT (16-63) U/L Alkaline Phosphatase (46-116) U/L Lactate Dehydrogenase (85-227) U/L Troponin I (0.00-0.056) ng/mL NT-Pro-B Natriuret Pep (0-125) pg/mL Total Protein (6.4-8.2) g/dl Albumin (3.4-5.0) g/dl Globulin gm/dL Albumin/Globulin Ratio (1-2) Body Fluid Site Fluid Type Fluid Volume ML Fluid Color Fluid Appearance Fluid pH (4.5-10.0) Fluid WBC (0.20-0.60) k/mm*3 Fluid RBC (0.00-0.010) 10*6/uL Fluid Diff Comment Fluid Seg Neutrophils (0-25) % Fluid Lymphocytes (0-78) % Fl Polymorphonucl Cell Fluid Glucose mg/dL Fluid Total Protein gm/dl Fluid Albumin Fluid LDH U/L Darryl Results Last 24 Hours: Microbiology 11/16/19 05:28 Gram Stain - Final Pleural Fluid 11/11/19 23:56 Aerobic Blood Culture - Preliminary Blood - Venous - Lab Draw NO GROWTH AFTER 4 DAYS Anaerobic Blood Culture - Preliminary NO GROWTH AFTER 4 DAYS 11/11/19 23:40 Aerobic Blood Culture - Preliminary Blood - Venous NO GROWTH AFTER 4 DAYS Anaerobic Blood Culture - Preliminary NO GROWTH AFTER 4 DAYS Gram stain pleural fluid: Red blood cellsmoderate; white blood cellsfew; no organisms seen Med Orders - Current: Current Medications Acetaminophen (Tylenol) 650 mg PO Q4H PRN PRN Reason: Pain (Mild 1-3)/fever Albuterol (Proventil Neb Soln) 2.5 mg NEB Q2H PRN PRN Reason: Dyspnea Last Admin: 11/16/19 00:36 Dose: 2.5 mg Albuterol/Ipratropium (Duoneb 3.0-0.5 Mg/3 Ml) 3 ml NEB QIDRT [facility] Last Admin: 11/16/19 09:19 Dose: 3 ml Enoxaparin Sodium (Lovenox) 40 mg SUBCUT Q12H [facility] Last Admin: 11/16/19 14:05 Dose: 40 mg Furosemide (Lasix) 40 mg IVPUSH BID [facility] Last Admin: 11/16/19 09:22 Dose: 40 mg Propofol (Diprivan 100 Ml) 100 mls @ 3.718 mls/hr IV TITRATE [facility]; Protocol Last Admin: 11/16/19 03:37 Dose: 18 mcg/kg/min, 13.383 mls/hr Piperacillin Sod/Tazobactam (Sod 4.5 gm/ Sodium Chloride) 100 mls @ 25 mls/hr IV Q8H [facility] Last Admin: 11/16/19 09:32 Dose: 25 mls/hr Midazolam HCl 50 mg/ Sodium (Chloride) 50 mls @ 4 mls/hr IV TITRATE [facility]; Protocol Last Titration: 11/16/19 15:07 Dose: Infused Fentanyl 2,500 mcg/ Sodium (Chloride) 250 mls @ 5 mls/hr IV TITRATE [facility]; Protocol Last Admin: 11/16/19 15:04 Dose: 120 mcg/hr, 12 mls/hr Potassium Chloride/Dextrose/Sod Cl (D5 1/2 Ns W/ 20 Meq/L Kcl) 1,000 mls @ 60 mls/hr IV ASDIRECTED [facility] Last Admin: 11/16/19 11:48 Dose: 60 mls/hr Insulin Human Lispro (Humalog) 0 unit SUBCUT QIDACANDBED [facility]; Protocol Last Admin: 11/16/19 11:36 Dose: Not Given Methylprednisolone Sodium Succinate (Solu-Medrol) 40 mg IVPUSH Q6H [facility] Last Admin: 11/16/19 09:22 Dose: 40 mg Metoclopramide HCl (Reglan) 10 mg IVPUSH Q6H [facility] Last Admin: 11/16/19 11:36 Dose: 10 mg Mometasone Furoate/Formoterol Fumar (Dulera 200-5 Mcg) 2 puff IH BID [facility] Last Admin: 11/13/19 10:22 Dose: Not Given Pantoprazole Sodium (Protonix Iv) 40 mg IVPUSH BID [facility] Last Admin: 11/16/19 09:22 Dose: 40 mg Discontinued Medications Albuterol/Ipratropium (Duoneb 3.0-0.5 Mg/3 Ml) 3 ml NEB QID [facility] Last Admin: 11/12/19 20:35 Dose: 3 ml Dexamethasone (Dexamethasone) 10 mg IVPUSH ONETIME ONE Stop: 11/14/19 17:01 Last Admin: 11/14/19 17:17 Dose: 10 mg Enoxaparin Sodium (Lovenox) 40 mg SUBCUT DAILY [facility] Etomidate (Amidate) 38 mg IVPUSH ONETIME ONE Stop: 11/12/19 23:42 Last Admin: 11/12/19 23:46 Dose: 38 mg Etomidate (Amidate) 40 mg IVPUSH .STK-MED ONE Stop: 11/12/19 00:01 Furosemide (Lasix) 40 mg IVPUSH NOW ONE Stop: 11/12/19 02:49 Last Admin: 11/12/19 03:49 Dose: 40 mg Furosemide (Lasix) 40 mg IVPUSH NOW ONE Stop: 11/12/19 10:01 Last Admin: 11/12/19 11:31 Dose: 40 mg Furosemide (Lasix) 40 mg IVPUSH ONETIME ONE Stop: 11/12/19 18:01 Last Admin: 11/12/19 17:31 Dose: 40 mg Furosemide (Lasix) 40 mg IVPUSH BIDDIURETIC [facility] Last Admin: 11/13/19 05:40 Dose: 40 mg Furosemide (Lasix) 60 mg IVPUSH NOW ONE Stop: 11/13/19 01:32 Last Admin: 11/13/19 01:35 Dose: 60 mg Furosemide (Lasix) 60 mg IVPUSH Q8H [facility] Last Admin: 11/14/19 06:35 Dose: Not Given Furosemide (Lasix) 40 mg IVPUSH NOW ONE Stop: 11/14/19 14:39 Last Admin: 11/14/19 15:21 Dose: 40 mg Furosemide (Lasix) 40 mg IVPUSH NOW ONE Stop: 11/16/19 02:48 Last Admin: 11/16/19 02:59 Dose: 40 mg Ceftriaxone Sodium 1 gm/ (Sodium Chloride) 100 mls @ 200 mls/hr IV Q24H [facility] Last Admin: 11/12/19 16:24 Dose: 200 mls/hr Propofol (Diprivan 100 Ml) Confirm Administered Dose 100 mls @ as directed .ROUTE .STK-MED ONE Stop: 11/12/19 23:36 Last Admin: 11/13/19 00:51 Dose: Not Given Piperacillin Sod/Tazobactam (Sod 4.5 gm/ Sodium Chloride) 100 mls @ 200 mls/hr IV ONETIME ONE Stop: 11/13/19 01:08 Last Admin: 11/13/19 01:29 Dose: 200 mls/hr Fentanyl 2,500 mcg/ Sodium (Chloride) 250 mls @ 61.96 mls/hr IV TITRATE [facility]; Protocol Potassium Chloride 10 meq/ (Premix) 100 mls @ 100 mls/hr IV Q1H [facility] Stop: 11/13/19 12:14 Last Admin: 11/13/19 12:10 Dose: 100 mls/hr Magnesium Sulfate 2 gm/ Premix 50 mls @ 25 mls/hr IV ONETIME ONE Stop: 11/13/19 10:08 Last Admin: 11/13/19 08:38 Dose: 25 mls/hr Lactated Ringer's (Ringers, Lactated) 1,000 mls @ 100 mls/hr IV ASDIRECTED [facility] Last Admin: 11/13/19 19:55 Dose: 100 mls/hr Sodium Chloride (Normal Saline) 1,000 mls @ 100 mls/hr IV ASDIRECTED [facility] Last Admin: 11/15/19 03:08 Dose: 100 mls/hr Lactated Ringer's (Ringers, Lactated) 500 mls @ 999 mls/hr IV .BOLUS ONE Stop: 02/12/20 20:49 Last Admin: 11/13/19 20:22 Dose: 999 mls/hr Potassium Chloride/Dextrose/Sod Cl (D5 1/2 Ns W/ 20 Meq/L Kcl) 1,000 mls @ 75 mls/hr IV ASDIRECTED [facility] Last Admin: 11/15/19 22:15 Dose: 75 mls/hr Potassium Chloride 10 meq/ (Premix) 100 mls @ 100 mls/hr IV Q1H [facility] Stop: 11/16/19 06:29 Last Admin: 11/16/19 07:15 Dose: 100 mls/hr Potassium Chloride 10 meq/ (Premix) 100 mls @ 100 mls/hr IV Q1H [facility] Stop: 11/16/19 13:59 Last Admin: 11/16/19 13:07 Dose: 100 mls/hr Lidocaine HCl (Xylocaine 2%) Confirm Administered Dose 100 mg .ROUTE .STK-MED ONE Stop: 11/12/19 23:36 Last Admin: 11/13/19 00:51 Dose: Not Given Lidocaine HCl (Xylocaine 2%) 100 mg IVPUSH ONETIME ONE Stop: 11/12/19 23:46 Last Admin: 11/12/19 23:46 Dose: 100 mg Midazolam HCl (Versed 1 Mg/Ml) 5 mg IVPUSH ONETIME ONE Stop: 11/13/19 00:31 Last Admin: 11/13/19 00:30 Dose: 5 mg Midazolam HCl (Versed 1 Mg/Ml) 5 mg .ROUTE .STK-MED ONE Stop: 11/12/19 00:01 Piperacillin Sod/Tazobactam Sod (Piperacil-Tazobact) Confirm Administered Dose 4.5 gm .ROUTE .STK-MED ONE Stop: 11/13/19 08:33 Last Admin: 11/13/19 08:49 Dose: Not Given Succinylcholine Chloride (Quelicin) 187 mg IV ONETIME ONE Stop: 11/12/19 23:43 Last Admin: 11/12/19 23:41 Dose: 187 mg Succinylcholine Chloride (Quelicin) 187 mg IV ONETIME ONE Stop: 11/12/19 11:57 Last Admin: 11/12/19 23:56 Dose: 187 mg Succinylcholine Chloride (Quelicin) 400 mg .ROUTE .STK-MED ONE Stop: 11/12/19 00:01 Vecuronium Wesson (Vecuronium) 10 mg IVPUSH ONETIME ONE Stop: 11/16/19 02:50 Last Admin: 11/16/19 03:03 Dose: 10 mg Vecuronium Wesson (Vecuronium) 10 mg IVPUSH ONETIME ONE Stop: 11/16/19 04:13 Last Admin: 11/16/19 05:59 Dose: Not Given Vecuronium Wesson (Vecuronium) Confirm Administered Dose 10 mg .ROUTE .STK-MED ONE Stop: 11/16/19 04:46 Last Admin: 11/16/19 06:15 Dose: Not Given - Exam Quality Assessment: Supplemental Oxygen, Urine Catheter, DVT Prophylaxis General: Other (Intubated and sedated) HEENT: Pupils Equal Neck: Supple Lungs: Clear to Auscultation, Normal Respiratory Effort (Mechanically ventilated ) Cardiovascular: Regular Rate, Regular Rhythm GI/Abdominal Exam: Normal Bowel Sounds, Soft, Non-Tender, No Organomegaly, No Distention Extremities: Normal Inspection, Normal Range of Motion, Non-Tender, Normal Capillary Refill, Pedal Edema (Trace to 1+) Skin: Warm, Dry, Intact Sepsis Event Note - Evaluation Sepsis Screening Result: No Definite Risk - Focused Exam Vital Signs: Vital Signs Temp Pulse Pulse Resp BP BP Pulse Ox 11/16/19 13:34 11/16/19 12:01 15 93 L 11/16/19 12:00 16 126/88 95 11/16/19 11:59 15 91 L 11/16/19 11:58 11/16/19 11:45 15 97 11/16/19 11:30 15 93 L 11/16/19 11:15 15 93 L 11/16/19 11:02 98.4 F 63 15 112/78 95 11/16/19 11:01 15 95 11/16/19 11:00 16 112/78 95 11/16/19 10:59 16 95 11/16/19 10:45 15 95 11/16/19 10:30 15 96 11/16/19 10:15 15 95 11/16/19 10:01 15 96 11/16/19 10:00 15 130/84 96 11/16/19 09:59 15 96 11/16/19 09:45 15 95 11/16/19 09:40 11/16/19 09:30 15 95 11/16/19 09:16 15 95 11/16/19 09:15 15 100/67 95 11/16/19 09:14 15 95 11/16/19 09:13 56 L 15 106/67 95 11/16/19 09:01 15 106/67 97 11/16/19 09:00 15 97 11/16/19 08:45 15 97 11/16/19 08:30 15 98 11/16/19 08:15 15 98 11/16/19 08:01 15 134/83 96 11/16/19 08:00 97.5 F 59 L 15 134/83 96 11/16/19 07:45 15 95 11/16/19 07:30 15 95 11/16/19 07:15 15 94 L 11/16/19 07:01 17 132/82 95 11/16/19 07:00 15 95 11/16/19 05:35 11/16/19 04:00 47 L 15 125/78 89 L 11/16/19 03:26 15 120/73 91 L 11/16/19 03:25 15 91 L 11/16/19 03:24 15 121/73 91 L 11/16/19 03:23 15 91 L 11/16/19 03:22 15 119/71 91 L 11/16/19 03:21 15 91 L 11/16/19 03:20 15 120/75 91 L 11/16/19 03:19 15 91 L 11/16/19 03:18 15 119/72 91 L 11/16/19 03:17 15 91 L 11/16/19 03:16 15 119/73 91 L 11/16/19 03:15 15 92 L 11/16/19 03:14 15 119/71 92 L 11/16/19 03:13 15 92 L 11/16/19 03:12 15 119/71 92 L 11/16/19 03:11 15 92 L Pulse Ox 11/16/19 13:34 96 11/16/19 12:01 11/16/19 12:00 11/16/19 11:59 11/16/19 11:58 96 11/16/19 11:45 11/16/19 11:30 11/16/19 11:15 11/16/19 11:02 11/16/19 11:01 11/16/19 11:00 11/16/19 10:59 11/16/19 10:45 11/16/19 10:30 11/16/19 10:15 11/16/19 10:01 11/16/19 10:00 11/16/19 09:59 11/16/19 09:45 11/16/19 09:40 95 11/16/19 09:30 11/16/19 09:16 11/16/19 09:15 11/16/19 09:14 11/16/19 09:13 11/16/19 09:01 11/16/19 09:00 11/16/19 08:45 11/16/19 08:30 11/16/19 08:15 11/16/19 08:01 11/16/19 08:00 11/16/19 07:45 11/16/19 07:30 11/16/19 07:15 11/16/19 07:01 11/16/19 07:00 11/16/19 05:35 93 L 11/16/19 04:00 11/16/19 03:26 11/16/19 03:25 11/16/19 03:24 11/16/19 03:23 11/16/19 03:22 11/16/19 03:21 11/16/19 03:20 11/16/19 03:19 11/16/19 03:18 11/16/19 03:17 11/16/19 03:16 11/16/19 03:15 11/16/19 03:14 11/16/19 03:13 11/16/19 03:12 11/16/19 03:11 Date Exam was Performed: 11/16/19 Time Exam was Performed: 16:00 - Problem List Review Problem List Initiated/Reviewed/Updated: Yes - My Orders Last 24 Hours: My Active Orders 11/16/19 01:14 Chest 1V Frontal [CR] Routine 11/16/19 05:00 Communication Order [RC] ROUTINE 11/16/19 05:06 Chest 1V-Tube Placement Chk NC [CR] Stat 11/16/19 05:28 CULTURE BODY FLUID + SMEAR [RM] Routine MISC TEST Routine 11/16/19 10:35 SCD [Sequential Compression Device] [OM.PC] Routine 11/16/19 11:00 Tube Feeding [Enteral Feedings] [RC] CONTINUOUS 11/16/19 11:45 D5 1/2 NS w/ 20 mEq/L KCl 1,000 ml IV ASDIRECTED 11/17/19 05:11 COMPREHENSIVE METABOLIC PN,CMP [CHEM] AM MAGNESIUM [CHEM] AM - Assessment Assessment:: Mean arterial pressure 70-96 T-max 98.2 gordy. -6150 mL fluid balance (hospitalization); Ventilator settings: Assist control - volume controlled Tidal volume 450 (7ml/kg PBW) Respiratory rate 15 PEEP 15 FiO2 50% I:E ratio 1:4 Drips: Versed and fentanyl titrate for RASS of -2 D51/2 with 20meq KCl/l 60ml/hr NGT feeds 30 ml/hr Echocardiogram: 1. Left regular ejection fraction, by visual estimation, is 60 to 65%. 2. "D-shaped" septum and abnormal septal bounce consistent with RV pressure overload. 3. Mildly reduced right ventricular systolic function. 4. Right ventricular size is severely enlarged. 5. No aortic valve stenosis. 6. Mild aortic valve regurgitation. 7. Trace mitral valve regurgitation. 8. Mild tricuspid valve regurgitation. 9. Mild dilatation of the ascending aorta. Ascending 4.5 cm. 10. The right ventricular systolic pressure is severely elevated at 64.0 mmHg. 11. No regional wall motion abnormalities. - Plan Plan:: Assessment * Respiratory failure * Mechanical ventilation: weaning PEEP/FiO2 * RASS -2 to -3 * NPO * NGT * Increase in WBC (16.4) likely steroid effect. Afebrile. * Given dexamethasone for possible airway edema from difficult intubation * Pleural effusion * Bilateral chest tubes placed with improvement in SpO2 * Gram stain pleural fluid: Red blood cellsmoderate; white blood cellsfew; no organisms seen * New onset CHF: Heart failure with preserved ejection fraction * Total -6150 ml fluid balance * BNP 3380 in the emergency room, now 330 * Left ventricular ejection fraction 60 to 65% * Right ventricular systolic pressure severely elevated at 64.0 mmHg. * CT consistent with CHF, cardiomegaly, small right sided pleural effusion, small amount of ascites around the spleen, body wall edema. No pulmonary embolism * Lasix 40 mg IV Q12H * Severe pulmonary hypertension. * Improvement in edema. * Renal insufficiency - stable * Creatinine - 1.4 * COPD exacerbation * Spirometry from March 2019 distant with moderate obstructive airway disease without reversibility * Initial blood gas demonstrating respiratory acidosis PCO2 76.5 and repeat at 88.3 and 99.9. * History of productive cough * On Symbicort at home. * Chronic respiratory acidosis with appropriate metabolic compensation * Arterial blood gas: pH 7.45, PCO2 59, PO2 70, HCO3 40.3, O2 saturation 92%: On above ventilator settings * Untreated hypertension * Not on blood pressure medication * Prediabetes * HbA1c 6.0% * Positive d-dimer with negative CTA and LE Doppler Plan * ICU * Continue mechanical ventilation and wean as tolerated * Lasix 40 mg IV Q12H. * Cautious diuresis secondary to right-sided heart failure * DuoNeb 4 times daily * Albuterol nebulizer every 2 hours as needed * D/C Zosyn. No signs of infection. * Follow I's and O's strictly * Daily weights * Start NG tube feeds. * Sedation vacation daily. * CBC, CMP, mag, in the morning * Follow ABGs * VTE prophylaxis with Lovenox 40 mg bid * CODE STATUS full code * Plan to continue weaning over the next two days. He may be difficult to extubated 2/2 trauma from intubation.
[2019-11-16] MEDS ORDERED: Piperacillin/Tazobactam 4.5 GM AdvVial ONE (16:19)
--- NOTE | 2019-11-16 16:33 | CR ---
Chest: Portable view of the chest was obtained. Comparison: Prior chest x-ray of 11/14/19. Increasing atelectasis within the right lung base. Probable pleural effusions also noted. Pulmonary vessels remain stable in appearance. Heart is enlarged. Endotracheal tube is seen with tip lying slightly below the inferior level of the clavicles. Nasogastric tube again noted with inferior tip of the nasogastric tube not seen. Impression: 1. Increasing atelectasis within the right lung base. Difficult to exclude small pleural effusions. 2. Pulmonary vessels are increased which are stable. 3. Endotracheal tube and nasogastric tube are seen. Diagnostic code #3 This report was dictated in [place] Standard Time I agree with preliminary report from [facility], finalized on 11/16/19, 2:29 AM Central Time
--- NOTE | 2019-11-16 16:33 | CR ---
Chest: Portable view of the chest was obtained. Comparison: Prior chest x-ray performed earlier on the same day (1:09 AM). Right-sided basilar chest tube is noted. Left sided basilar chest tube also noted. Improved opacity within the right base. Continuing consolidation within the left base is noted. Atelectasis noted within the right base. Lesser atelectasis within left midlung. Heart is enlarged. Impression: 1. Continuing consolidation within left lung base with air bronchograms. Mild atelectasis is also seen within the left midlung. 2. Decreased right-sided pleural effusion from prior study with continuing right basilar atelectasis. 3. Cardiomegaly. 4. Bibasilar chest tubes. 5. Endotracheal tube and nasogastric tube. Diagnostic code #3 This report was dictated in [place] Standard Time I agree with preliminary report from [facility], finalized on 11/16/19, 6:31 AM Central Time
[2019-11-16] MEDS ORDERED: Sodium Chloride 0.9% 500 ML IV ONE (23:56)
[2019-11-17] MEDS ORDERED: methylPREDNISolone Sodium Succinate 40 MG/1 ML SDV IVPUSH SCH
[2019-11-17] MEDS: Midazolam 50 MG in Sodium Chloride 0.9% 40 ML IV SCH (00:07)
[2019-11-17] MEDS ORDERED: Furosemide 100 MG in Sodium Chloride 0.9% 90 ML IV SCH (00:45)
[2019-11-17] MEDS ORDERED: Furosemide 100 MG/10 ML SDV ONE (00:53)
[2019-11-17] MEDS ORDERED: Sodium Chloride 0.9% 100 ML ONE ×2 (00:54→00:55)
--- NOTE | 2019-11-17 00:57 | PCM.DCSUM1 ---
Discharge Summary - Hospital Course HPI Initial Comments: Prateek is a 59-year-old male who is a poor historian and difficult to understand secondary to speech impediment presented to the emergency room with worsening shortness of breath. He has a history for untreated hypertension, prediabetes, and morbid obesity. He states for the last few months he has had worsening dyspnea on exertion that significantly worsened over the last few days. Yesterday he became lightheaded and decided to come to the emergency room. He denies any fever, chills, night sweats. He has had a cough that is productive of unknown colored sputum for the last couple of days. No abdominal pain, hematochezia or melena, dysuria or hesitancy. Patient did have PFTs done March 2019 which showed moderate obstructive ventilatory defect. There was no significant improvement in FVC and FEV1 postbronchodilator. Flow volume loop suggests obstructive ventilatory defect. Lung volumes are normal. The diffusion capacity is normal. Patient states he smoked approximately 1-1/2 years back in the 80s. Diagnosis: Stroke: No - Discharge Data Discharge Date: 11/17/19 Discharge Disposition: DC/Tfer to Acute Hospital 02 Condition: Serious - Referral to Home Health Primary Care Physician: Megan Navarro PA-C - Patient Summary/Data Hospital Course: In the emergency room patient did have a positive d-dimer, therefore a CTA of the chest was performed which was negative for PE. Bilateral lower extremity Dopplers were also performed which were negative for DVT. Patient was admitted with respiratory failure which was felt to be secondary to primarily pulmonary hypertension. Initial blood gas pH of 7.28, PCO2 of 76.5, PO2 of 114, HCO3 35 on 3 L nasal cannula. Repeat blood gas 9 hours later showed worsening CO2 of 88.3 and decreasing PO2 of 75. Patient was switched to BiPAP and blood gases continued to worsen with the PCO2 ultimately reaching 99.3. Patient was alert the entire time even with a PCO2 of 99. During the first day patient was also started on Solu-Medrol and IV Lasix. When PCO2 became so increased it was decided to intubate the patient. Patient has a very large body habitus and it was difficult to intubate. 2 providers and total of approximately 7 attempts at intubation were done before being successful. Patient did bite his tongue during the intubation attempt. Zosyn was started. Patient was placed on mechanical ventilation with assist control and over the next 2 days settings were weaned to tidal volume 400 (6ml/kg), respiratory rate of 15, FiO2 50%, PEEP 8. On the third day patient became hypoxemic with oxygen saturations dropping into the 80s. FiO2 was increased to 100% and PEEP was increased to 15. Chest x-ray found bilateral pleural effusions. Dr. Stewart at [facility] in [place] was consulted by phone who recommended bilateral chest tubes and lung recruitment measures based on the information provided to her over the phone. Bilateral chest tubes were placed and patient had a significant improvement and has oxygenation within a couple of hours. Over the next several hours FiO2 was weaned down to 50% and PEEP was kept at 13. Tonight after suctioning patient became hypoxemic again and required nursing to bagging the patient to get his oxygenation saturations from 80% to 90%. FiO2 was again increased to 100%, PEEP increased to 15, and tidal volume increased to 500. Chest x-ray showed no significant change, chest tubes in place, no significant pleural effusions, with bibasilar atelectasis. Dr. Stewart was reconsulted by phone and she felt that he would be best served at a center that could do ECMO if necessary. During hospitalization patient did have over 7000 mL diuresed. He had greater than a 13 pound weight loss and was treated with Solu-Medrol and Zosyn. Due to the delicate nature of his pulmonary hypertension and respiratory status it was felt that he would be best served at a tertiary care center that could provide ECMO if necessary and had specialty care including cardiology and medicare contact specialist. Dr. Pappas agreed to accept the patient at [facility] in [place]. CTA chest -11/11/2019 Impression: 1. Cardiomegaly and small right-sided pleural effusion. These correlate if patient has mild CHF. 2. Mild areas of atelectasis within both lung bases. 3. Gallstones and a small amount of ascites around the spleen. Body wall edema also noted. 4. No findings of pulmonary embolism. 5. Other findings as noted above. Mild areas of atelectasis are noted within both lung bases. Echocardiogram: 11/12/2019 1. Left regular ejection fraction, by visual estimation, is 60 to 65%. 2. "D-shaped" septum and abnormal septal bounce consistent with RV pressure overload. 3. Mildly reduced right ventricular systolic function. 4. Right ventricular size is severely enlarged. 5. No aortic valve stenosis. 6. Mild aortic valve regurgitation. 7. Trace mitral valve regurgitation. 8. Mild tricuspid valve regurgitation. 9. Mild dilatation of the ascending aorta. Ascending 4.5 cm. 10. The right ventricular systolic pressure is severely elevated at 64.0 mmHg. 11. No regional wall motion abnormalities. - Patient Instructions Diet: NPO - Discharge Plan *PRESCRIPTION DRUG MONITORING PROGRAM REVIEWED*: Not Applicable *COPY OF PRESCRIPTION DRUG MONITORING REPORT IN PATIENT OG: Not Applicable Home Medications: Home Meds Budesonide/Formoterol Fumarate [Symbicort 160-4.5 Mcg Inhaler] 6 gm PO BID 11/11 [History] Oxygen Therapy Mode: Mechanical Ventilation Patient Handouts: Pulmonary Hypertension, D-Dimer Test, Heart Failure Forms: ED Department Discharge Referrals: Megan Navarro PA-C [Primary Care Provider] - - Discharge Summary/Plan Comment DC Time >30 min.: Yes Discharge Summary/Plan Comment: Patient sent by fixed wing plane to [facility] in [place]. - General Info Date of Service: 11/17/19 Admission Dx/Problem (Free Text: Admission Diagnosis/Problem Admission Diagnosis/Problem Pulmonary hypertension Subjective Update: Sedated, intubated, and ventilated. - Patient Data Vitals - Most Recent: Last Vital Signs Temp 97.8 F 11/16/19 19:49 Pulse 62 11/17/19 00:00 Resp 15 11/17/19 00:49 BP 94/54 L 11/17/19 00:00 Pulse Ox 97 11/17/19 00:49 Weight - Most Recent: 260 lb 9.6 oz I&O - Last 24 hours: Intake & Output 11/16/19 11/16/19 11/17/19 14:59 22:59 06:59 Intake Total 75 1887 Output Total 1565 1203 350 Balance -1490 684 -350 Lab Results - Last 24 hrs: Laboratory Results - last 24 hr 11/16/19 11/16/19 11/16/19 Range/Units 01:40 01:40 01:40 WBC 14.80 H (4.23-9.07) K/mm3 RBC 6.51 H (4.63-6.08) M/mm3 Hgb 16.7 (13.7-17.5) gm/dl Hct 55.0 H (40.1-51.0) % MCV 84.5 (79.0-92.2) fl MCH 25.7 (25.7-32.2) pg MCHC 30.4 L (32.2-35.5) g/dl RDW Std Deviation 51.4 H (35.1-43.9) fL Plt Count 196 (163-337) K/mm3 MPV 10.6 (9.4-12.3) fl Neut % (Auto) 89.1 H (34.0-67.9) % Lymph % (Auto) 5.9 L (21.8-53.1) % [place] % (Auto) 4.8 L (5.3-12.2) % Eos % (Auto) 0 L (0.8-7.0) Baso % (Auto) 0.0 L (0.1-1.2) % Neut # (Auto) 13.18 H (1.78-5.38) K/mm3 Lymph # (Auto) 0.88 L (1.32-3.57) K/mm3 [place] # (Auto) 0.71 (0.30-0.82) K/mm3 Eos # (Auto) 0.00 L (0.04-0.54) K/mm3 Baso # (Auto) 0.00 L (0.01-0.08) K/mm3 Manual Slide Review Abnormal smear Puncture Site ABG pH (7.35-7.45) ABG pCO2 (35.0-45.0) mmHg ABG pO2 (80.0-100.0) mmHg ABG HCO3 (22.0-26.0) meq/L ABG O2 Saturation (96.0-97.0) % ABG Base Excess (-2-2.0) Chin Test A-a Gradient mmHg O2 Delivery Device FiO2 (21.00-100.00) % Tidal Volume cc PEEP cmH20 Sodium 147 H (136-145) mEq/L Potassium 3.3 L (3.5-5.1) mEq/L Chloride 105 (98-107) mEq/L Carbon Dioxide 39 H (21-32) mEq/L Anion Gap 6.3 (5-15) BUN 35 H (7-18) mg/dL Creatinine 1.5 H (0.7-1.3) mg/dL Est Cr Clr Drug Dosing 46.91 mL/min Estimated GFR (MDRD) 48 (>60) mL/min BUN/Creatinine Ratio 23.3 H (14-18) Glucose 138 H (80-115) mg/dL POC Glucose (80-115) mg/dL Calcium 8.5 (8.5-10.1) mg/dL Phosphorus 3.2 (2.6-4.7) mg/dL Magnesium 2.2 (1.8-2.4) mg/dl Total Bilirubin 0.9 (0.2-1.0) mg/dL AST 97 H (15-37) U/L ALT 43 (16-63) U/L Alkaline Phosphatase 65 (46-116) U/L Lactate Dehydrogenase (85-227) U/L Troponin I 0.080 H* (0.00-0.056) ng/mL NT-Pro-B Natriuret Pep 333 H (0-125) pg/mL Total Protein 6.5 (6.4-8.2) g/dl Albumin 2.4 L (3.4-5.0) g/dl Globulin 4.1 gm/dL Albumin/Globulin Ratio 0.6 L (1-2) Body Fluid Site Fluid Type Fluid Volume ML Fluid Color Fluid Appearance Fluid pH (4.5-10.0) Fluid WBC (0.20-0.60) k/mm*3 Fluid RBC (0.00-0.010) 10*6/uL Fluid Diff Comment Fluid Seg Neutrophils (0-25) % Fluid Lymphocytes (0-78) % Fl Polymorphonucl Cell Fluid Glucose mg/dL Fluid Total Protein gm/dl Fluid Albumin Fluid LDH U/L 11/16/19 11/16/19 11/16/19 Range/Units 01:40 02:15 05:28 WBC (4.23-9.07) K/mm3 RBC (4.63-6.08) M/mm3 Hgb (13.7-17.5) gm/dl Hct (40.1-51.0) % MCV (79.0-92.2) fl MCH (25.7-32.2) pg MCHC (32.2-35.5) g/dl RDW Std Deviation (35.1-43.9) fL Plt Count (163-337) K/mm3 MPV (9.4-12.3) fl Neut % (Auto) (34.0-67.9) % Lymph % (Auto) (21.8-53.1) % [place] % (Auto) (5.3-12.2) % Eos % (Auto) (0.8-7.0) Baso % (Auto) (0.1-1.2) % Neut # (Auto) (1.78-5.38) K/mm3 Lymph # (Auto) (1.32-3.57) K/mm3 [place] # (Auto) (0.30-0.82) K/mm3 Eos # (Auto) (0.04-0.54) K/mm3 Baso # (Auto) (0.01-0.08) K/mm3 Manual Slide Review Puncture Site Rt radial Rt radial ABG pH 7.44 7.47 H (7.35-7.45) ABG pCO2 62.6 H 57.8 H (35.0-45.0) mmHg ABG pO2 67.0 L 66.0 L (80.0-100.0) mmHg ABG HCO3 42.1 H 41.1 H (22.0-26.0) meq/L ABG O2 Saturation 90.3 L 92.5 L (96.0-97.0) % ABG Base Excess 14.2 H 13.9 H (-2-2.0) Chin Test A-a Gradient 570 577 mmHg O2 Delivery Device Ventilator Ventilator FiO2 100.00 100.00 (21.00-100.00) % Tidal Volume 400.0 500.0 cc PEEP 15.0 15.0 cmH20 Sodium (136-145) mEq/L Potassium (3.5-5.1) mEq/L Chloride (98-107) mEq/L Carbon Dioxide (21-32) mEq/L Anion Gap (5-15) BUN (7-18) mg/dL Creatinine (0.7-1.3) mg/dL Est Cr Clr Drug Dosing mL/min Estimated GFR (MDRD) (>60) mL/min BUN/Creatinine Ratio (14-18) Glucose (80-115) mg/dL POC Glucose (80-115) mg/dL Calcium (8.5-10.1) mg/dL Phosphorus (2.6-4.7) mg/dL Magnesium (1.8-2.4) mg/dl Total Bilirubin (0.2-1.0) mg/dL AST (15-37) U/L ALT (16-63) U/L Alkaline Phosphatase (46-116) U/L Lactate Dehydrogenase (85-227) U/L Troponin I (0.00-0.056) ng/mL NT-Pro-B Natriuret Pep (0-125) pg/mL Total Protein (6.4-8.2) g/dl Albumin (3.4-5.0) g/dl Globulin gm/dL Albumin/Globulin Ratio (1-2) Body Fluid Site Pleural Fluid Type Pleural fluid Fluid Volume 5 ML Fluid Color Red Fluid Appearance Cloudy Fluid pH 10 (4.5-10.0) Fluid WBC 0.15 L (0.20-0.60) k/mm*3 Fluid RBC 0.027 H (0.00-0.010) 10*6/uL Fluid Diff Comment See note Fluid Seg Neutrophils 2.0 (0-25) % Fluid Lymphocytes 1.0 (0-78) % Fl Polymorphonucl Cell Not Reportable Fluid Glucose 152 mg/dL Fluid Total Protein < 2.0 gm/dl Fluid Albumin Cancelled Fluid LDH 186 U/L 11/16/19 11/16/19 11/16/19 Range/Units 05:45 06:08 06:08 WBC (4.23-9.07) K/mm3 RBC (4.63-6.08) M/mm3 Hgb (13.7-17.5) gm/dl Hct (40.1-51.0) % MCV (79.0-92.2) fl MCH (25.7-32.2) pg MCHC (32.2-35.5) g/dl RDW Std Deviation (35.1-43.9) fL Plt Count (163-337) K/mm3 MPV (9.4-12.3) fl Neut % (Auto) (34.0-67.9) % Lymph % (Auto) (21.8-53.1) % [place] % (Auto) (5.3-12.2) % Eos % (Auto) (0.8-7.0) Baso % (Auto) (0.1-1.2) % Neut # (Auto) (1.78-5.38) K/mm3 Lymph # (Auto) (1.32-3.57) K/mm3 [place] # (Auto) (0.30-0.82) K/mm3 Eos # (Auto) (0.04-0.54) K/mm3 Baso # (Auto) (0.01-0.08) K/mm3 Manual Slide Review Puncture Site Rt radial ABG pH 7.50 H (7.35-7.45) ABG pCO2 53.2 H (35.0-45.0) mmHg ABG pO2 63.0 L (80.0-100.0) mmHg ABG HCO3 40.6 H (22.0-26.0) meq/L ABG O2 Saturation 92.7 L (96.0-97.0) % ABG Base Excess 14.2 H (-2-2.0) Chin Test A-a Gradient 514 mmHg O2 Delivery Device Ventilator FiO2 90.00 (21.00-100.00) % Tidal Volume 500.0 cc PEEP 15.0 cmH20 Sodium 145 (136-145) mEq/L Potassium 3.2 L (3.5-5.1) mEq/L Chloride 102 (98-107) mEq/L Carbon Dioxide 37 H (21-32) mEq/L Anion Gap 9.2 (5-15) BUN 34 H (7-18) mg/dL Creatinine 1.4 H (0.7-1.3) mg/dL Est Cr Clr Drug Dosing 50.00 mL/min Estimated GFR (MDRD) 52 (>60) mL/min BUN/Creatinine Ratio 24.3 H (14-18) Glucose 140 H (80-115) mg/dL POC Glucose (80-115) mg/dL Calcium 9.0 (8.5-10.1) mg/dL Phosphorus (2.6-4.7) mg/dL Magnesium 2.4 (1.8-2.4) mg/dl Total Bilirubin 1.0 (0.2-1.0) mg/dL AST 100 H (15-37) U/L ALT 46 (16-63) U/L Alkaline Phosphatase 72 (46-116) U/L Lactate Dehydrogenase (85-227) U/L Troponin I 0.046 (0.00-0.056) ng/mL NT-Pro-B Natriuret Pep (0-125) pg/mL Total Protein 7.1 (6.4-8.2) g/dl Albumin 2.6 L (3.4-5.0) g/dl Globulin 4.5 gm/dL Albumin/Globulin Ratio 0.6 L (1-2) Body Fluid Site Fluid Type Fluid Volume ML Fluid Color Fluid Appearance Fluid pH (4.5-10.0) Fluid WBC (0.20-0.60) k/mm*3 Fluid RBC (0.00-0.010) 10*6/uL Fluid Diff Comment Fluid Seg Neutrophils (0-25) % Fluid Lymphocytes (0-78) % Fl Polymorphonucl Cell Fluid Glucose mg/dL Fluid Total Protein gm/dl Fluid Albumin Fluid LDH U/L 11/16/19 11/16/19 11/16/19 Range/Units 06:08 06:24 11:11 WBC (4.23-9.07) K/mm3 RBC (4.63-6.08) M/mm3 Hgb (13.7-17.5) gm/dl Hct (40.1-51.0) % MCV (79.0-92.2) fl MCH (25.7-32.2) pg MCHC (32.2-35.5) g/dl RDW Std Deviation (35.1-43.9) fL Plt Count (163-337) K/mm3 MPV (9.4-12.3) fl Neut % (Auto) (34.0-67.9) % Lymph % (Auto) (21.8-53.1) % [place] % (Auto) (5.3-12.2) % Eos % (Auto) (0.8-7.0) Baso % (Auto) (0.1-1.2) % Neut # (Auto) (1.78-5.38) K/mm3 Lymph # (Auto) (1.32-3.57) K/mm3 [place] # (Auto) (0.30-0.82) K/mm3 Eos # (Auto) (0.04-0.54) K/mm3 Baso # (Auto) (0.01-0.08) K/mm3 Manual Slide Review Puncture Site ABG pH (7.35-7.45) ABG pCO2 (35.0-45.0) mmHg ABG pO2 (80.0-100.0) mmHg ABG HCO3 (22.0-26.0) meq/L ABG O2 Saturation (96.0-97.0) % ABG Base Excess (-2-2.0) Chin Test A-a Gradient mmHg O2 Delivery Device FiO2 (21.00-100.00) % Tidal Volume cc PEEP cmH20 Sodium (136-145) mEq/L Potassium (3.5-5.1) mEq/L Chloride (98-107) mEq/L Carbon Dioxide (21-32) mEq/L Anion Gap (5-15) BUN (7-18) mg/dL Creatinine (0.7-1.3) mg/dL Est Cr Clr Drug Dosing mL/min Estimated GFR (MDRD) (>60) mL/min BUN/Creatinine Ratio (14-18) Glucose (80-115) mg/dL POC Glucose 119 H 116 H (80-115) mg/dL Calcium (8.5-10.1) mg/dL Phosphorus (2.6-4.7) mg/dL Magnesium (1.8-2.4) mg/dl Total Bilirubin (0.2-1.0) mg/dL AST (15-37) U/L ALT (16-63) U/L Alkaline Phosphatase (46-116) U/L Lactate Dehydrogenase 257 H (85-227) U/L Troponin I (0.00-0.056) ng/mL NT-Pro-B Natriuret Pep (0-125) pg/mL Total Protein (6.4-8.2) g/dl Albumin (3.4-5.0) g/dl Globulin gm/dL Albumin/Globulin Ratio (1-2) Body Fluid Site Fluid Type Fluid Volume ML Fluid Color Fluid Appearance Fluid pH (4.5-10.0) Fluid WBC (0.20-0.60) k/mm*3 Fluid RBC (0.00-0.010) 10*6/uL Fluid Diff Comment Fluid Seg Neutrophils (0-25) % Fluid Lymphocytes (0-78) % Fl Polymorphonucl Cell Fluid Glucose mg/dL Fluid Total Protein gm/dl Fluid Albumin Fluid LDH U/L 11/16/19 11/16/19 11/16/19 Range/Units 13:35 17:07 22:22 WBC (4.23-9.07) K/mm3 RBC (4.63-6.08) M/mm3 Hgb (13.7-17.5) gm/dl Hct (40.1-51.0) % MCV (79.0-92.2) fl MCH (25.7-32.2) pg MCHC (32.2-35.5) g/dl RDW Std Deviation (35.1-43.9) fL Plt Count (163-337) K/mm3 MPV (9.4-12.3) fl Neut % (Auto) (34.0-67.9) % Lymph % (Auto) (21.8-53.1) % [place] % (Auto) (5.3-12.2) % Eos % (Auto) (0.8-7.0) Baso % (Auto) (0.1-1.2) % Neut # (Auto) (1.78-5.38) K/mm3 Lymph # (Auto) (1.32-3.57) K/mm3 [place] # (Auto) (0.30-0.82) K/mm3 Eos # (Auto) (0.04-0.54) K/mm3 Baso # (Auto) (0.01-0.08) K/mm3 Manual Slide Review Puncture Site Lt radial ABG pH 7.47 H (7.35-7.45) ABG pCO2 57.4 H (35.0-45.0) mmHg ABG pO2 70.0 L (80.0-100.0) mmHg ABG HCO3 41.3 H (22.0-26.0) meq/L ABG O2 Saturation 94.2 L (96.0-97.0) % ABG Base Excess 14.0 H (-2-2.0) Chin Test Positive A-a Gradient 215 mmHg O2 Delivery Device Ventilator FiO2 0.00 L (21.00-100.00) % Tidal Volume 450.0 cc PEEP 15.0 cmH20 Sodium (136-145) mEq/L Potassium (3.5-5.1) mEq/L Chloride (98-107) mEq/L Carbon Dioxide (21-32) mEq/L Anion Gap (5-15) BUN (7-18) mg/dL Creatinine (0.7-1.3) mg/dL Est Cr Clr Drug Dosing mL/min Estimated GFR (MDRD) (>60) mL/min BUN/Creatinine Ratio (14-18) Glucose (80-115) mg/dL POC Glucose 123 H 132 H (80-115) mg/dL Calcium (8.5-10.1) mg/dL Phosphorus (2.6-4.7) mg/dL Magnesium (1.8-2.4) mg/dl Total Bilirubin (0.2-1.0) mg/dL AST (15-37) U/L ALT (16-63) U/L Alkaline Phosphatase (46-116) U/L Lactate Dehydrogenase (85-227) U/L Troponin I (0.00-0.056) ng/mL NT-Pro-B Natriuret Pep (0-125) pg/mL Total Protein (6.4-8.2) g/dl Albumin (3.4-5.0) g/dl Globulin gm/dL Albumin/Globulin Ratio (1-2) Body Fluid Site Fluid Type Fluid Volume ML Fluid Color Fluid Appearance Fluid pH (4.5-10.0) Fluid WBC (0.20-0.60) k/mm*3 Fluid RBC (0.00-0.010) 10*6/uL Fluid Diff Comment Fluid Seg Neutrophils (0-25) % Fluid Lymphocytes (0-78) % Fl Polymorphonucl Cell Fluid Glucose mg/dL Fluid Total Protein gm/dl Fluid Albumin Fluid LDH U/L 11/16/19 11/17/19 Range/Units 23:15 00:15 WBC (4.23-9.07) K/mm3 RBC (4.63-6.08) M/mm3 Hgb (13.7-17.5) gm/dl Hct (40.1-51.0) % MCV (79.0-92.2) fl MCH (25.7-32.2) pg MCHC (32.2-35.5) g/dl RDW Std Deviation (35.1-43.9) fL Plt Count (163-337) K/mm3 MPV (9.4-12.3) fl Neut % (Auto) (34.0-67.9) % Lymph % (Auto) (21.8-53.1) % [place] % (Auto) (5.3-12.2) % Eos % (Auto) (0.8-7.0) Baso % (Auto) (0.1-1.2) % Neut # (Auto) (1.78-5.38) K/mm3 Lymph # (Auto) (1.32-3.57) K/mm3 [place] # (Auto) (0.30-0.82) K/mm3 Eos # (Auto) (0.04-0.54) K/mm3 Baso # (Auto) (0.01-0.08) K/mm3 Manual Slide Review Puncture Site Rt radial Rt radial ABG pH 7.45 7.46 H (7.35-7.45) ABG pCO2 61.0 H 58.4 H (35.0-45.0) mmHg ABG pO2 70.0 L 97.0 (80.0-100.0) mmHg ABG HCO3 41.6 H 40.7 H (22.0-26.0) meq/L ABG O2 Saturation 93.8 L 97.7 H (96.0-97.0) % ABG Base Excess 14.1 H 13.6 H (-2-2.0) Chin Test A-a Gradient 569 545 mmHg O2 Delivery Device Ventilator Ventilator FiO2 100.00 100.00 (21.00-100.00) % Tidal Volume 450.0 500.0 cc PEEP 13.0 15.0 cmH20 Sodium (136-145) mEq/L Potassium (3.5-5.1) mEq/L Chloride (98-107) mEq/L Carbon Dioxide (21-32) mEq/L Anion Gap (5-15) BUN (7-18) mg/dL Creatinine (0.7-1.3) mg/dL Est Cr Clr Drug Dosing mL/min Estimated GFR (MDRD) (>60) mL/min BUN/Creatinine Ratio (14-18) Glucose (80-115) mg/dL POC Glucose (80-115) mg/dL Calcium (8.5-10.1) mg/dL Phosphorus (2.6-4.7) mg/dL Magnesium (1.8-2.4) mg/dl Total Bilirubin (0.2-1.0) mg/dL AST (15-37) U/L ALT (16-63) U/L Alkaline Phosphatase (46-116) U/L Lactate Dehydrogenase (85-227) U/L Troponin I (0.00-0.056) ng/mL NT-Pro-B Natriuret Pep (0-125) pg/mL Total Protein (6.4-8.2) g/dl Albumin (3.4-5.0) g/dl Globulin gm/dL Albumin/Globulin Ratio (1-2) Body Fluid Site Fluid Type Fluid Volume ML Fluid Color Fluid Appearance Fluid pH (4.5-10.0) Fluid WBC (0.20-0.60) k/mm*3 Fluid RBC (0.00-0.010) 10*6/uL Fluid Diff Comment Fluid Seg Neutrophils (0-25) % Fluid Lymphocytes (0-78) % Fl Polymorphonucl Cell Fluid Glucose mg/dL Fluid Total Protein gm/dl Fluid Albumin Fluid LDH U/L ANTONIO Results - Last 24 hrs: Microbiology 11/11/19 23:56 Aerobic Blood Culture - Preliminary Blood - Venous - Lab Draw NO GROWTH AFTER 5 DAYS Anaerobic Blood Culture - Preliminary NO GROWTH AFTER 5 DAYS 11/11/19 23:40 Aerobic Blood Culture - Preliminary Blood - Venous NO GROWTH AFTER 5 DAYS Anaerobic Blood Culture - Preliminary NO GROWTH AFTER 5 DAYS 11/16/19 05:28 Gram Stain - Final Pleural Fluid Med Orders - Current: Current Medications Acetaminophen (Tylenol) 650 mg PO Q4H PRN PRN Reason: Pain (Mild 1-3)/fever Albuterol (Proventil Neb Soln) 2.5 mg NEB Q2H PRN PRN Reason: Dyspnea Last Admin: 11/16/19 22:44 Dose: 2.5 mg Albuterol/Ipratropium (Duoneb 3.0-0.5 Mg/3 Ml) 3 ml NEB QIDRT [facility] Last Admin: 11/16/19 20:23 Dose: 3 ml Enoxaparin Sodium (Lovenox) 40 mg SUBCUT Q12H [facility] Last Admin: 11/16/19 14:05 Dose: 40 mg Furosemide (Lasix) 40 mg IVPUSH BID [facility] Last Admin: 11/16/19 20:17 Dose: 40 mg Piperacillin Sod/Tazobactam (Sod 4.5 gm/ Sodium Chloride) 100 mls @ 25 mls/hr IV Q8H [facility] Last Admin: 11/16/19 16:24 Dose: 25 mls/hr Midazolam HCl 50 mg/ Sodium (Chloride) 50 mls @ 4 mls/hr IV TITRATE [facility]; Protocol Last Admin: 11/17/19 00:07 Dose: 13 mg/hr, 13 mls/hr Fentanyl 2,500 mcg/ Sodium (Chloride) 250 mls @ 5 mls/hr IV TITRATE [facility]; Protocol Last Admin: 11/16/19 15:04 Dose: 120 mcg/hr, 12 mls/hr Potassium Chloride/Dextrose/Sod Cl (D5 1/2 Ns W/ 20 Meq/L Kcl) 1,000 mls @ 60 mls/hr IV ASDIRECTED [facility] Last Admin: 11/16/19 11:48 Dose: 60 mls/hr Furosemide 100 mg/ Sodium (Chloride) 100 mls @ 10 mls/hr IV TITRATE [facility]; Protocol Insulin Human Lispro (Humalog) 0 unit SUBCUT QIDACANDBED [facility]; Protocol Last Admin: 11/16/19 22:23 Dose: Not Given Methylprednisolone Sodium Succinate (Solu-Medrol) 40 mg IVPUSH Q6H [facility] Last Admin: 11/16/19 22:25 Dose: 40 mg Metoclopramide HCl (Reglan) 10 mg IVPUSH Q6H [facility] Last Admin: 11/16/19 22:24 Dose: 10 mg Mometasone Furoate/Formoterol Fumar (Dulera 200-5 Mcg) 2 puff IH BID [facility] Last Admin: 11/13/19 10:22 Dose: Not Given Pantoprazole Sodium (Protonix Iv) 40 mg IVPUSH BID [facility] Last Admin: 11/16/19 20:18 Dose: 40 mg Discontinued Medications Albuterol/Ipratropium (Duoneb 3.0-0.5 Mg/3 Ml) 3 ml NEB QID [facility] Last Admin: 11/12/19 20:35 Dose: 3 ml Dexamethasone (Dexamethasone) 10 mg IVPUSH ONETIME ONE Stop: 11/14/19 17:01 Last Admin: 11/14/19 17:17 Dose: 10 mg Enoxaparin Sodium (Lovenox) 40 mg SUBCUT DAILY [facility] Etomidate (Amidate) 38 mg IVPUSH ONETIME ONE Stop: 11/12/19 23:42 Last Admin: 11/12/19 23:46 Dose: 38 mg Etomidate (Amidate) 40 mg IVPUSH .STK-MED ONE Stop: 11/12/19 00:01 Furosemide (Lasix) 40 mg IVPUSH NOW ONE Stop: 11/12/19 02:49 Last Admin: 11/12/19 03:49 Dose: 40 mg Furosemide (Lasix) 40 mg IVPUSH NOW ONE Stop: 11/12/19 10:01 Last Admin: 11/12/19 11:31 Dose: 40 mg Furosemide (Lasix) 40 mg IVPUSH ONETIME ONE Stop: 11/12/19 18:01 Last Admin: 11/12/19 17:31 Dose: 40 mg Furosemide (Lasix) 40 mg IVPUSH BIDDIURETIC [facility] Last Admin: 11/13/19 05:40 Dose: 40 mg Furosemide (Lasix) 60 mg IVPUSH NOW ONE Stop: 11/13/19 01:32 Last Admin: 11/13/19 01:35 Dose: 60 mg Furosemide (Lasix) 60 mg IVPUSH Q8H [facility] Last Admin: 11/14/19 06:35 Dose: Not Given Furosemide (Lasix) 40 mg IVPUSH NOW ONE Stop: 11/14/19 14:39 Last Admin: 11/14/19 15:21 Dose: 40 mg Furosemide (Lasix) 40 mg IVPUSH NOW ONE Stop: 11/16/19 02:48 Last Admin: 11/16/19 02:59 Dose: 40 mg Ceftriaxone Sodium 1 gm/ (Sodium Chloride) 100 mls @ 200 mls/hr IV Q24H [facility] Last Admin: 11/12/19 16:24 Dose: 200 mls/hr Propofol (Diprivan 100 Ml) Confirm Administered Dose 100 mls @ as directed .ROUTE .STK-MED ONE Stop: 11/12/19 23:36 Last Admin: 11/13/19 00:51 Dose: Not Given Propofol (Diprivan 100 Ml) 100 mls @ 3.718 mls/hr IV TITRATE [facility]; Protocol Last Admin: 11/16/19 03:37 Dose: 18 mcg/kg/min, 13.383 mls/hr Piperacillin Sod/Tazobactam (Sod 4.5 gm/ Sodium Chloride) 100 mls @ 200 mls/hr IV ONETIME ONE Stop: 11/13/19 01:08 Last Admin: 11/13/19 01:29 Dose: 200 mls/hr Fentanyl 2,500 mcg/ Sodium (Chloride) 250 mls @ 61.96 mls/hr IV TITRATE [facility]; Protocol Potassium Chloride 10 meq/ (Premix) 100 mls @ 100 mls/hr IV Q1H [facility] Stop: 11/13/19 12:14 Last Admin: 11/13/19 12:10 Dose: 100 mls/hr Magnesium Sulfate 2 gm/ Premix 50 mls @ 25 mls/hr IV ONETIME ONE Stop: 11/13/19 10:08 Last Admin: 11/13/19 08:38 Dose: 25 mls/hr Lactated Ringer's (Ringers, Lactated) 1,000 mls @ 100 mls/hr IV ASDIRECTED [facility] Last Admin: 11/13/19 19:55 Dose: 100 mls/hr Sodium Chloride (Normal Saline) 1,000 mls @ 100 mls/hr IV ASDIRECTED [facility] Last Admin: 11/15/19 03:08 Dose: 100 mls/hr Lactated Ringer's (Ringers, Lactated) 500 mls @ 999 mls/hr IV .BOLUS ONE Stop: 11/13/19 20:49 Last Admin: 11/13/19 20:22 Dose: 999 mls/hr Potassium Chloride/Dextrose/Sod Cl (D5 1/2 Ns W/ 20 Meq/L Kcl) 1,000 mls @ 75 mls/hr IV ASDIRECTED [facility] Last Admin: 11/15/19 22:15 Dose: 75 mls/hr Potassium Chloride 10 meq/ (Premix) 100 mls @ 100 mls/hr IV Q1H [facility] Stop: 11/16/19 06:29 Last Admin: 11/16/19 07:15 Dose: 100 mls/hr Potassium Chloride 10 meq/ (Premix) 100 mls @ 100 mls/hr IV Q1H [facility] Stop: 11/16/19 13:59 Last Admin: 11/16/19 13:07 Dose: 100 mls/hr Sodium Chloride (Normal Saline) 500 mls @ 999 mls/hr IV .BOLUS ONE Stop: 11/17/19 00:26 Last Admin: 11/17/19 00:04 Dose: 999 mls/hr Lidocaine HCl (Xylocaine 2%) Confirm Administered Dose 100 mg .ROUTE .STK-MED ONE Stop: 11/12/19 23:36 Last Admin: 11/13/19 00:51 Dose: Not Given Lidocaine HCl (Xylocaine 2%) 100 mg IVPUSH ONETIME ONE Stop: 11/12/19 23:46 Last Admin: 11/12/19 23:46 Dose: 100 mg Midazolam HCl (Versed 1 Mg/Ml) 5 mg IVPUSH ONETIME ONE Stop: 11/13/19 00:31 Last Admin: 11/13/19 00:30 Dose: 5 mg Midazolam HCl (Versed 1 Mg/Ml) 5 mg .ROUTE .STK-MED ONE Stop: 11/12/19 00:01 Piperacillin Sod/Tazobactam Sod (Piperacil-Tazobact) Confirm Administered Dose 4.5 gm .ROUTE .STK-MED ONE Stop: 11/13/19 08:33 Last Admin: 11/13/19 08:49 Dose: Not Given Piperacillin Sod/Tazobactam Sod (Piperacil-Tazobact) Confirm Administered Dose 4.5 gm .ROUTE .STK-MED ONE Stop: 11/16/19 16:20 Last Admin: 11/16/19 16:41 Dose: Not Given Succinylcholine Chloride (Quelicin) 187 mg IV ONETIME ONE Stop: 11/12/19 23:43 Last Admin: 11/12/19 23:41 Dose: 187 mg Succinylcholine Chloride (Quelicin) 187 mg IV ONETIME ONE Stop: 11/12/19 11:57 Last Admin: 11/12/19 23:56 Dose: 187 mg Succinylcholine Chloride (Quelicin) 400 mg .ROUTE .STK-MED ONE Stop: 11/12/19 00:01 Vecuronium [place] (Vecuronium) 10 mg IVPUSH ONETIME ONE Stop: 11/16/19 02:50 Last Admin: 11/16/19 03:03 Dose: 10 mg Vecuronium [place] (Vecuronium) 10 mg IVPUSH ONETIME ONE Stop: 11/16/19 04:13 Last Admin: 11/16/19 05:59 Dose: Not Given Vecuronium [place] (Vecuronium) Confirm Administered Dose 10 mg .ROUTE .STK-MED ONE Stop: 11/16/19 04:46 Last Admin: 11/16/19 06:15 Dose: Not Given - Exam Quality Assessment: Reports: Supplemental Oxygen, Urine Catheter General: Reports: Sedated, Other (Intubated) HEENT: Reports: Pupils Equal, Mucous Membr. Moist/[place] Neck: Reports: Supple Lungs: Reports: Clear to Auscultation, Decreased Breath Sounds, Other ( Mechanically ventilated) Cardiovascular: Reports: Regular Rate, Regular Rhythm GI/Abdominal Exam: Normal Bowel Sounds, Soft, Non-Tender, No Organomegaly, No Distention Extremities: Normal Inspection, Pedal Edema (1+) Skin: Reports: Warm, Dry, Intact Neurological: Reports: No New Focal Deficit
[2019-11-17] MEDS: Piperacillin/Tazobactam 4.5 GM in Sodium Chloride 0.9% 100 ML IV SCH (02:35)
--- NOTE | 2019-11-17 09:28 | CR ---
Chest: Portable supine view of the chest was obtained. Comparison: Prior chest x-ray performed earlier on the same day (4:08 AM). Continuing parenchymal density is noted within the left lung base. Atelectasis remains within the right lung base. Endotracheal tube is seen. Tip of endotracheal tube lies approximately 4 cm above the jose. Nasogastric tube is partially visualized which is also noted within the stomach and felt to be unremarkable in position. Bilateral basilar chest tubes are noted. No pneumothorax is appreciated. Bony structures are grossly intact. Heart size and mediastinum are unchanged. Impression: 1. Bibasilar chest tube and endotracheal tube. Nasogastric tube and bilateral chest tubes. 2. Stable consolidation within the left lung base. Stable areas of atelectasis within the right lung base. 3. No pneumothorax or other interval finding is seen. Diagnostic code #3 This report was dictated in [place] Standard Time I agree with preliminary report from [facility], finalized on 11/17/19, 12:08 AM Central Time
== END 2019-11-17 02:07 | DRG 207 ==
LOC: JD.ED 22:37 → JD.MS 11-12 04:11 → UNDOADMOB 11-12 04:11 → INTOOBSV 11-12 09:17 → OBSVTOIN 11-12 09:17 → JD.MS 11-12 10:50 → OBSVTOIN 11-12 23:45 → JD.MS 11-12 23:45 → JD.ICU 11-12 23:45 → JD.MS 11-13 00:37 → JD.ICU 11-13 00:37
PROVIDERS: ADMIT Internal Medicine; ATTEND Internal Medicine
PROC: 0BH17EZ Insertion of Endotracheal Airway into Trachea, Via Natural or Artificial Opening (ICD-10-PCS; principal; 2019-11-13)
PROC: 5A1955Z Respiratory Ventilation, Greater than 96 Consecutive Hours (ICD-10-PCS; 2019-11-13)
PROC: 0W9B30Z Drainage of Left Pleural Cavity with Drainage Device, Percutaneous Approach (ICD-10-PCS; 2019-11-16)
PROC: 0W9930Z Drainage of Right Pleural Cavity with Drainage Device, Percutaneous Approach (ICD-10-PCS; 2019-11-16)
DX: J96.01 Acute respiratory failure with hypoxia (principal); J44.1 Chronic obstructive pulmonary disease with (acute) exacerbation; E87.2 Acidosis; N17.9 Acute kidney failure, unspecified; I50.30 Unspecified diastolic (congestive) heart failure; Z68.41 Body mass index [BMI] 40.0-44.9, adult; R73.03 Prediabetes; I11.0 Hypertensive heart disease with heart failure; K21.9 Gastro-esophageal reflux disease without esophagitis; E66.01 Morbid (severe) obesity due to excess calories; Z87.891 Personal history of nicotine dependence
CPT/HCPCS: 31500; 36415; 36600; 51702; 71045; 71045-26; 71046; 71046-26; 71275; 71275-26; 80048; 80053; 82042; 82803; 82945; 82962; 83036; 83605; 83615; 83735; 83880; 83986; 84100; 84157; 84443; 84484; 85007; 85025; 85027; 85379; 87040; 87070; 87205; 89050; 93005; 93010; 93306; 93970; 93970-26; 94002; 94003; 94640; 94761; 96374; 99223; 99232; 99233; 99239; 99285; 99285-25; A9270-GY; C9113; J0330; J0696; J1100; J1650; J1940; J2001; J2250; J2543; J2704; J2765; J2920; J3010; J3475; J3480; J3490; J7030; J7050; J7120; J7620-GY